=== PATIENT | male | born 1985 | race Caucasian/White ===

== ENCOUNTER 2017-12-01 03:43 | Observation (INO) | payer SELFPAY ==
[2017-12-01] MEDS ORDERED: ONDANSETRON 4 MG/2 ML VIAL ONE (03:57)
[2017-12-01 04:10] LABS: Absolute Lymphocytes (CBC) 1.3 K/uL (0.7-4.9); Absolute Monocytes 0.5 K/uL (0.1-1.3); Absolute Neutrophil 6.4 K/uL (1.8-8.0); Basophils % 0.4 % (0-1.3); Eosinophils % 1.1 % (0-4.4); Hematocrit 37.2 % (39.6-49.0); Lymphocytes % 15.5 % (15.3-44.8); MCH 29.7 pg (27.0-35.0); MCV 90.9 fL (80-100); MPV 8.4 fL (7.6-11.3); Monocytes % 5.6 % (3.3-12.3); RBC Red Blood Cell Count 4.09 M/uL (4.33-5.43)
[2017-12-01] MEDS ORDERED: PROMETHAZINE 25 MG/ML VIAL ONE (04:19)
[2017-12-01] MEDS ORDERED: NA CHLORIDE 0.9% 1,000 ML ONE ×2 (04:21→05:30)
[2017-12-01 04:30] LABS: ALT/SGPT 17 IU/L (10-60); AST/SGOT 13 IU/L (10-42); Albumin 2.5 g/dL (3.2-5.5); Alkaline Phosphatase 40 IU/L (42-121); Amylase Level 54 U/L (28-100); BUN Blood Urea Nitrogen 10 mg/dL (6-20); Bicarbonate 20 mEq/L (21-31); Bilirubin Direct 0.2 mg/dL (0-0.2); Bilirubin Total 0.8 mg/dL (0.3-1.2); Glucose Level 74 mg/dL (65-120); Lipase 17 U/L (22-51); Protein, Total 4.3 g/dL (6.0-8.3); Sodium Level 143 mEq/L (135-145)
[2017-12-01] MEDS ORDERED: PANTOPRAZOLE 40 MG INJ ONE (04:38)
[2017-12-01] MEDS ORDERED: Caclcium Chloride 10% INJ SYR IV ONE (04:38)
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
[2017-12-01] MEDS ORDERED: ACETAMINOPHEN 500 MG TAB PO PRN (06:14)
[2017-12-01] MEDS ORDERED: ONDANSETRON 4 MG/2 ML VIAL IV PRN (06:14)
[2017-12-01] MEDS ORDERED: POTASSIUM PHOS 45 MM in NA CHLORIDE 0.9% 500 ML IV ONE (06:15)
--- NOTE | 2017-12-01 07:43 | EKG ---
Test Date: 2017-12-01 Test Time: 05:49:12 [employer] Vehicle Mechanic: SAKINA MEASUREMENT RESULTS: Intervals: Rate: 68 FL: 128 QRSD: 88 QT: 370 QTc: 393 [place]: P: 44 FL: 128 QRS: 79 T: 70 INTERPRETIVE STATEMENTS: Sinus rhythm with marked sinus arrhythmia Otherwise normal ECG Compared to ECG 05/09/2017 03:02:13 No significant changes Electronically Signed On 12-01-17 07:43:04 CDT by Keith Ortega
--- NOTE | 2017-12-01 08:31 | RAD REPORT ---
EXAM DESCRIPTION: Elli Single View12/01/2017 4:35 am CLINICAL HISTORY: Chest pain COMPARISON: none FINDINGS: The lungs appear clear of acute infiltrate. The heart is normal size IMPRESSION: No acute abnormalities displayed
--- NOTE | 2017-12-01 08:39 | RAD REPORT ---
EXAM DESCRIPTION: CT - Abdomen Pelvis Wo Contrast - 12/01/2017 6:20 am CLINICAL HISTORY: Abdominal pain /epigastric pain with nausea and vomiting for 3 days COMPARISON: None TECHNIQUE: Computed axial tomography of the abdomen and pelvis was obtained. IV was not requested. O ral contrast was given A preliminary report was given by virtual radiologic and reviewed prior to thi s dictation All CT scans are performed using dose optimization technique as appropriate and may include automated exposure control or mA/KV adjustment according to patient size. FINDINGS: The evaluation of solid organs, vesselsis limited secondary to the lack of contrast admin istration. A 9 millimeter low-density area within the liver is nonspecific without IV contrast. It may represent a cyst. Spleen, pancreas, adrenals and kidneys appear grossly normal. The appendix is normal. There is no evidence of diverticulitis. A tiny umbilical hernia is present IMPRESSION: No acute abnormality is displayed.
[2017-12-01] MEDS: NA CHLORIDE 0.9% 1,000 ML IV SCH ×3 (10:45→21:26)
[2017-12-01 11:04] VITALS: BMI 27.7
[2017-12-01 11:40] LABS: Absolute Lymphocytes (CBC) 1.7 K/uL (0.7-4.9); Absolute Monocytes 0.8 K/uL (0.1-1.3); Absolute Neutrophil 7.4 K/uL (1.8-8.0); Basophils % 0.5 % (0-1.3); Eosinophils % 0.9 % (0-4.4); Hematocrit 43.5 % (39.6-49.0); Lymphocytes % 17.2 % (15.3-44.8); MCH 30.6 pg (27.0-35.0); MCV 90.5 fL (80-100); MPV 8.5 fL (7.6-11.3); Monocytes % 7.8 % (3.3-12.3); RBC Red Blood Cell Count 4.81 M/uL (4.33-5.43)
--- NOTE | 2017-12-01 11:46 | P.HP ---
Certification for Inpatient Patient admitted to: Observation With expected LOS: <2 Midnights Patient will require the following post-hospital care: None Practitioner: I am a practitioner with admitting privileges, knowledge of patient current condition, hospital course, and medical plan of care. Services: Services provided to patient in accordance with Admission requirements found in Title 42 Section 412.3 of the Code of Federal Regulations Patient History Date of Service: 12/01/17 Reason for admission: Intractable nausea and vomiting History of Present Illness: Patient is a 32-year-old gentleman who came into the hospital with intractable nausea and vomiting. Patient states he has been feeling this way since Wednesday. He has not gotten any better. Whenever he drinks or eats anything he has to vomit immediately. He finally came into the emergency room for evaluation. In the emergency room patient's workup included imaging studies and lab data. His CT scan of the abdomen and pelvis was negative. His labs showed a potassium of 2.0 . I have ordered additional lab testing including urine drug screen and magnesium level. I have also ordered aldosterone and cortisol lab testing. Patient states that his sister has a history of gastroparesis of unknown etiology. Patient's mother feels that it was related to a viral infection. At this time patient will be admitted to the hospital for observation and will monitor him closely over the next 24 hr. Allergies iodine Allergy (Unverified 12/01/17 08:03) Unknown Home Medications: NK [No Home Meds] 12/01/17 - Past Medical/Surgical History Has patient received pneumonia vaccine in the past: No Diabetic: No -: major depressive disorder -: Reconstructive chest surgery - Family History Father Family History: Reviewed- Non-Contributory - Social History Smoking Status: Current some day smoker Alcohol use: Yes CD- Drugs: Yes Caffeine use: Yes Place of Residence: Home Review of Systems 10-point ROS is otherwise unremarkable Physical Examination - Vital Signs Temperature: 99.0 F Blood Pressure: 131/82 Pulse: 115 Respirations: 16 Pulse Ox (%): 100 - Physical Exam General: Alert, In no apparent distress, Oriented x3 HEENT: Atraumatic, PERRLA, Mucous membr. moist/pink, EOMI, Sclerae nonicteric Neck: Supple, 2+ carotid pulse no bruit, No LAD, Without JVD or thyroid abnormality Respiratory: Clear to auscultation bilaterally, Normal air movement Cardiovascular: Regular rate/rhythm, Normal S1 S2, No murmurs Gastrointestinal: Normal bowel sounds, Soft and benign, Non-distended, No tenderness Musculoskeletal: No clubbing, No swelling, No tenderness Integumentary: No rashes Neurological: Normal gait, Normal speech, Normal strength at 5/5 x4 extr, Normal tone, Sensation intact, Cranial nerves 3-12 intact, Normal affect Lymphatics: No axilla or inguinal lymphadenopathy - Studies Laboratory Data (last 24 hrs) 12/01/17 04:00: Creatinine 0.61 12/01/17 04:00: WBC 8.3, Hgb 12.1 L, Hct 37.2 L, Plt Count 194 12/01/17 04:00: Sodium 143, Potassium 2.0 L*, BUN 10, Creatinine 0.61, Glucose 74, Total Bilirubin 0.8, AST 13, ALT 17, Alkaline Phosphatase 40 L, Amylase 54, Lipase 17 L Assessment & Plan - Problems (Diagnosis) (1) Intractable nausea and vomiting Current Visit: Yes Status: Acute (2) Abdominal pain Current Visit: Yes Status: Acute - Plan Plan: 1. IV hydration 2. intravenous antiemetics 3. pain control 4. Clear liquid diet 5. advance diet as tolerated 6. Outpatient GI workup unless symptoms worsen at that point patient will need inpatient workup. 7. check aldosterone and cortisol level as well as magnesium level 8. Urine drug screen 9. GI and DVT prophylaxis Discharge Plan: Home Plan to discharge in: 24 Hours - Advance Directives Does patient have a Living Will: No Does patient have a Durable POA for Healthcare: No - Code Status/Comfort Care Code Status Assessed: Yes Code Status: Full Code Critical Care: No Time Spent Managing PTS Care (In Minutes): 50
[2017-12-01 13:16] LABS: Albumin 3.7 g/dL (3.2-5.5); Bilirubin Total 1.3 mg/dL (0.3-1.2); Magnesium 1.7 mg/dL (1.8-2.5); Phosphorus 3.1 mg/dL (2.5-4.3); Potassium 4.2 mEq/L (3.6-5.0); Protein, Total 6.1 g/dL (6.0-8.3); Thyroid Stimulating Hormone 0.58 uIU/mL (0.34-5.60)
[2017-12-01] MEDS: ONDANSETRON 4 MG/2 ML VIAL IV PRN (17:54)
[2017-12-01] MEDS ORDERED: TEMAZEPAM 15 MG CAP PO PRN (21:24)
[2017-12-01 21:54] LABS: Barbiturates NEGATIVE; Benzodiazepines NEGATIVE; Cocaine NEGATIVE; Opiates NEGATIVE; Phencyclidine NEGATIVE; THC Cannibis POSITIVE
[2017-12-01 21:57] LABS: METHAMPHETAM POSITIVE
[2017-12-01 22:07] LABS: Urine Bacteria <20 /HPF (NONE SEEN); Urine Culture Reflex Order NOT NEEDED; Urine RBC <5 /HPF (NONE SEEN)
[2017-12-02 00:57] VITALS: O2SAT 97
[2017-12-02] MEDS: ONDANSETRON 4 MG/2 ML VIAL IV PRN (05:16)
[2017-12-02 09:32] VITALS: BP 103/62; TEMP 99.3
--- NOTE | 2017-12-02 14:06 | P.SSS ---
Patient History Date of Service: 12/02/17 Primary Care Provider: None Reason for admission: Intractable nausea and vomiting History of Present Illness: See HPI Allergies iodine Allergy (Verified 12/01/17 21:26) Unknown Home Medications: NK [No Home Meds] 12/01/17 - Past Medical/Surgical History Has patient received pneumonia vaccine in the past: No Diabetic: No -: major depressive disorder -: Reconstructive chest surgery - Social History Smoking Status: Current some day smoker Alcohol use: Yes CD- Drugs: Yes Caffeine use: Yes Place of Residence: Home Review of Systems General: As per HPI Physical Examination - Vital Signs Temperature: 99.3 F Blood Pressure: 103/62 Pulse: 69 Respirations: 20 Pulse Ox (%): 99 - Physical Exam General: Alert, In no apparent distress HEENT: Atraumatic, PERRLA, Mucous membr. moist/pink, EOMI, Sclerae nonicteric Neck: Supple, 2+ carotid pulse no bruit, No LAD, Without JVD or thyroid abnormality Respiratory: Clear to auscultation bilaterally, Normal air movement Cardiovascular: Regular rate/rhythm, Normal S1 S2 Gastrointestinal: Normal bowel sounds, No tenderness Musculoskeletal: No tenderness Integumentary: No rashes Neurological: Normal gait, Normal speech, Normal strength at 5/5 x4 extr, Normal tone, Normal affect Lymphatics: No axilla or inguinal lymphadenopathy - Diagnosis (Problem(s)) (1) Abdominal pain Status: Resolved Qualifiers: Abdominal location: unspecified location Qualified Code(s): R10.9 - Unspecified abdominal pain (2) Hypokalemia Onset Date: 12/01/17 Status: Resolved (3) Intractable nausea and vomiting Status: Resolved (4) Drug abuse and dependence Status: Chronic Treatment Summary: Patient was initially admitted to the hospital for nausea vomiting and abdominal pain most likely secondary to viral gastroenteritis. Patient was kept on IV fluid in the hospital. Patient's symptoms resolved. Pt also had a UDS done here in the hospital which was positive for amphetamines and THC patient was educated extensively not using any drugs at home and that it could possible cause the intractable nausea and vomiting. Patient demonstrated understanding and thus was discharged home under condition. - Disposition Disposition: ROUTINE DISCHARGE Condition: GOOD Patient Discharge Instructions: Please f/u with PCP in 1 to 2 weeks post discharge. Please refrain from using illicit drugs Diet: Regular Activity: Ad williams
== END 2017-12-02 10:51 | disposition home or self-care (01) ==
LOC: ER 03:43 → ERHOLD 05:45 → 2ND 07:50
PROVIDERS: ADMIT Hospitalist; ATTEND Hospitalist
DX: R11.2 Nausea with vomiting, unspecified (principal); R10.9 Unspecified abdominal pain; E87.6 Hypokalemia; F17.210 Nicotine dependence, cigarettes, uncomplicated; F15.10 Other stimulant abuse, uncomplicated; F12.10 Cannabis abuse, uncomplicated
CPT/HCPCS: 36415; 71045; 74176; 80048; 80053; 80076; 80307; 81015; 82150; 82533; 82607; 83690; 83735; 84100; 84439; 84443; 85025; 93005; 99285; C9113; G0378; J2405; J2550; J7030

== ENCOUNTER 2017-12-03 01:17 | Emergency (ER) | payer SELFPAY ==
[2017-12-03] MEDS ORDERED: ONDANSETRON 4 MG/2 ML VIAL ONE ×3 (01:42→03:20)
[2017-12-03] MEDS ORDERED: NA CHLORIDE 0.9% 1,000 ML ONE (01:42)
[2017-12-03 02:01] LABS: Absolute Lymphocytes (CBC) 2.3 K/uL (0.7-4.9); Absolute Monocytes 0.7 K/uL (0.1-1.3); Absolute Neutrophil 6.6 K/uL (1.8-8.0); Basophils % 0.5 % (0-1.3); Eosinophils % 1.1 % (0-4.4); Hematocrit 45.2 % (39.6-49.0); Lymphocytes % 23.6 % (15.3-44.8); MCH 30.7 pg (27.0-35.0); MCV 88.9 fL (80-100); MPV 8.7 fL (7.6-11.3); Monocytes % 7.3 % (3.3-12.3); RBC Red Blood Cell Count 5.08 M/uL (4.33-5.43)
[2017-12-03 02:17] LABS: Bicarbonate 28 mEq/L (21-31); Glucose Level 99 mg/dL (65-120); Lipase 33 U/L (22-51); Potassium 3.5 mEq/L (3.6-5.0); Sodium Level 138 mEq/L (135-145)
[2017-12-03 02:23] LABS: ALT/SGPT 22 IU/L (10-60); AST/SGOT 21 IU/L (10-42); Alkaline Phosphatase 61 IU/L (42-121); BUN Blood Urea Nitrogen 10 mg/dL (6-20); Bilirubin Direct 0.2 mg/dL (0-0.2); Bilirubin Total 1.3 mg/dL (0.3-1.2)
[2017-12-03 02:24] LABS: Albumin 4.2 g/dL (3.2-5.5); Protein, Total 7.6 g/dL (6.0-8.3)
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
--- NOTE | 2017-12-03 02:34 | EDPHYS ---
Physician Documentation [facility] Name: Mac Kern Age: 32 yrs Sex: Male : 1985 Arrival Date: 12/03/2017 Time: 01:21 Bed 5 Private MD: ED Physician Jaylan John HPI: 12/03 01:34 This 32 yrs old Male presents to ER via Ambulatory with complaints of rn Vomiting. 01:34 The patient presents to the emergency department with nausea, vomiting. Onset: The rn symptoms/episode began/occurred 2 day(s) ago. Possible causes: unknown. The symptoms are aggravated by nothing. The symptoms are alleviated by nothing. Severity of symptoms: At their worst the symptoms were moderate in the emergency department the symptoms are unchanged. The patient has experienced a previous episode. The patient has been recently been admitted at [facility]. Reports admitted for intractable vomiting a couple of days ago, sent home without nausea medication, told viral illness, uses ecstasy and smokes marijuana, reports still vomiting, no blood, + intermittent abd cramping. . Historical: - Allergies: 01:34 Iodine; tl1 - Home Meds: :34 None [Active]; tl1 - PMHx: 01:34 Depression; RETINAL DETACHMENT; tl1 - PSHx: 01:34 None; tl1 - Immunization history:: Adult Immunizations unknown. - Social history:: Smoking status: Patient uses tobacco products, smokes one-half pack cigarettes per day, Patient uses alcohol, occasionally. street drugs, marijuana, methylenedioxymethamphetamine. - Family history:: not pertinent. - Hospitalizations: : No recent hospitalization is reported. ROS: 01:34 Constitutional: Negative for fever, chills, and weight loss, Eyes: Negative for injury, rn pain, redness, and discharge, Neck: Negative for injury, pain, and swelling, Cardiovascular: Negative for chest pain, palpitations, and edema, Respiratory: Negative for shortness of breath, cough, wheezing, and pleuritic chest pain, Abdomen/GI: Negative for diarrhea, and constipation, MS/Extremity: Negative for injury and deformity, Skin: Negative for injury, rash, and discoloration, Neuro: Negative for headache, weakness, numbness, tingling, and seizure. Exam: 01:34 Constitutional: This is a well developed, well nourished patient who is awake, alert, rn and in no acute distress. Head/Face: Normocephalic, atraumatic. Eyes: Pupils equal round and reactive to light, extra-ocular motions intact. Lids and lashes normal. Conjunctiva and sclera are non-icteric and not injected. Cornea within normal limits. Periorbital areas with no swelling, redness, or edema. ENT: dry MM Neck: Trachea midline, no thyromegaly or masses palpated, and no cervical lymphadenopathy. Supple, full range of motion without nuchal rigidity, or vertebral point tenderness. No Meningismus. Abdomen/GI: Soft, non-tender, with normal bowel sounds. No distension or tympany. No guarding or rebound. No evidence of tenderness throughout. Skin: Warm, dry, no rashes, no lesions, and no evidence of cellulitis. MS/ Extremity: Pulses equal, no cyanosis. Neurovascular intact. Full, normal range of motion. Equal circumference. Neuro: Awake and alert, GCS 15, oriented to person, place, time, and situation. Cranial nerves II-XII grossly intact. Motor strength 5/5 in all extremities. Sensory grossly intact. Cerebellar exam normal. Normal gait. Vital Signs: 01:36 BP 139 / 89; Pulse 71; Resp 16; Temp 98; Pulse Ox 100% on R/A; Weight 88.45 kg; Height tl1 5 ft. 11 in. (180.34 cm); Pain 5/10; 02:26 BP 111 / 56; Pulse 67; Resp 17; Pulse Ox 97% ; Pain 3/10; tl1 03:29 BP 118 / 67; Pulse 69; Resp 16; Temp 98.1; Pulse Ox 100% on R/A; Pain 0/10; tl1 01:36 Body Mass Index 27.20 (88.45 kg, 180.34 cm) tl1 MDM: 01:27 Patient medically screened. rn 02:32 Differential diagnosis: viral gastroenteritis, gastroenteritis. Differential diagnosis: rn gastritis. Data reviewed: vital signs, nurses notes, old medical records, lab test result(s), and as a result, I will discharge patient. Counseling: I had a detailed discussion with the patient and/or guardian regarding: the historical points, exam findings, and any diagnostic results supporting the discharge/admit diagnosis, lab results, radiology results, the need for outpatient follow up, to return to the emergency department if symptoms worsen or persist or if there are any questions or concerns that arise at home. Special discussion: Based on the patient's Hx, exam, and Dx evaluation, there is no indication for emergent surgery or inpatient Tx. It is understood by the patient/guardian that if the Sx's persist or worsen they need to return immediately for re-evaluation. I discussed with the patient/guardian in detail that at this point there is no indication for admission to the hospital. It is understood, however, that if the symptoms persist or worsen the patient needs to return immediately for re-evaluation. ED course: No vomiting in ER, will dc home with rectal phenergan as patient states oral zofran makes him gag and throw up.. 12/03 01:33 Order name: Basic Metabolic Panel rn 12/03 01:33 Order name: CBC with Diff rn 12/03 01:33 Order name: Hepatic Function rn 12/03 01:33 Order name: Lipase rn 12/03 01:33 Order name: Basic Metabolic Panel; Complete Time: 02:31 EDMS 12/03 01:33 Order name: CBC with Automated Diff; Complete Time: 02:10 EDMS 12/03 01:33 Order name: IV Saline Lock; Complete Time: 01:38 rn 12/03 01:33 Order name: Labs collected and sent; Complete Time: 01:38 rn 12/03 01:33 Order name: Liver (Hepatic) Function; Complete Time: 02:31 EDMS 12/03 01:33 Order name: Lipase; Complete Time: 02:31 EDMS Administered Medications: 01:53 Drug: NS 0.9% 1000 ml Route: IV; Rate: 1000 ml; Site: left antecubital; tl1 02:38 Follow up: IV Status: Completed infusion tl1 01:53 Drug: Zofran 4 mg Route: IVP; Infused Over: 2 mins; Site: left antecubital; tl1 02:37 Follow up: Response: No adverse reaction; Nausea is decreased tl1 03:25 Drug: Zofran 4 mg Route: IVP; Infused Over: 2 mins; Site: left antecubital; tl1 03:25 Follow up: Response: No adverse reaction; Medication administered at discharge. tl1 03:25 Drug: Phenergan Suppository 25 mg Route: MI; tl1 03:26 Follow up: Response: No adverse reaction; Medication administered at discharge. tl1 Disposition: 12/03/17 02:33 Discharged to Home. Impression: Vomiting. - Condition is Stable. - Discharge Instructions: Nausea and Vomiting. - Prescriptions for Phenergan 25 mg Rectal Suppository - insert 1 suppository by RECTAL route every 6 hours As needed; 12 suppository. - Medication Reconciliation Form, Thank You Letter, Antibiotic Education, Prescription Opioid Use form. - Follow up: Private Physician; When: As needed; Reason: Recheck today's complaints, Re-evaluation by your physician. - Problem is new. - Symptoms have improved. Signatures: Dispatcher [employer] EDMS Jaylan John MD MD rn Lasagna, Tonya, RN RN tl1 Corrections: (The following items were deleted from the chart) 01:40 01:36 PMHx: HIV; tl1 tl1 03:30 02:33 12/03/2017 02:33 Discharged to Home. Impression: Vomiting. Condition is Stable. tl1 Prescriptions for Phenergan 25 mg Rectal Suppository - insert 1 suppository by RECTAL route every 6 hours As needed; 12 suppository. and Forms are Medication Reconciliation Form, Thank You Letter, Antibiotic Education, Prescription Opioid Use. Follow up: Private Physician; When: As needed; Reason: Recheck today's complaints, Re-evaluation by your physician. Problem is new. Symptoms have improved. noemi
[2017-12-03] MEDS ORDERED: PROMETHAZINE 25 MG/SUPP PR ONE (03:20)
[2017-12-03 03:40] VITALS: BP 118/67; TEMP 98.1; O2SAT 100
== END 2017-12-03 03:30 | disposition home or self-care (01) ==
LOC: ER 01:17
DX: R11.10 Vomiting, unspecified (principal); F17.210 Nicotine dependence, cigarettes, uncomplicated; Z91.048 Other nonmedicinal substance allergy status
CPT/HCPCS: 36415; 80048; 80076; 83690; 85025; 96361; 96374; 99284; J2405; J7030

== ENCOUNTER 2017-12-04 06:00 | Observation (INO) | payer SELFPAY ==
[2017-12-04] MEDS ORDERED: NA CHLORIDE 0.9% 1,000 ML ONE ×2 (06:31→08:15)
[2017-12-04 06:36] LABS: Absolute Lymphocytes (CBC) 1.7 K/uL (0.7-4.9); Absolute Monocytes 0.7 K/uL (0.1-1.3); Absolute Neutrophil 8.6 K/uL (1.8-8.0); Basophils % 0.8 % (0-1.3); Eosinophils % 1.1 % (0-4.4); Lymphocytes % 15.4 % (15.3-44.8); MCH 29.9 pg (27.0-35.0); MPV 8.5 fL (7.6-11.3); Monocytes % 5.9 % (3.3-12.3); RBC Red Blood Cell Count 5.05 M/uL (4.33-5.43)
[2017-12-04 06:55] LABS: Potassium 3.5 mEq/L (3.6-5.0)
[2017-12-04 07:01] LABS: Albumin 4.2 g/dL (3.2-5.5); Bilirubin Direct 0.3 mg/dL (0-0.2); Bilirubin Total 1.9 mg/dL (0.3-1.2)
[2017-12-04] MEDS ORDERED: POTASSIUM CL SA 10 MEQ TAB PO ONE (07:14)
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
[2017-12-04 07:29] LABS: Urine Blood NEGATIVE (NEG); Urine Glucose NEGATIVE (NEG); Urine Protein 2+ (NEG); Urine Specific Gravity 1.025 (1.005-1.030); Urine pH 6.5 (5.0-7.0)
[2017-12-04] MEDS ORDERED: NS KCL 20MEQ 1,000 ML IV ONE (08:14)
[2017-12-04] MEDS ORDERED: PANTOPRAZOLE 40 MG INJ ONE (08:14)
[2017-12-04 11:49] VITALS: BMI 27.9
[2017-12-04] MEDS ORDERED: ACETAMINOPHEN 500 MG TAB PO PRN (12:14)
[2017-12-04] MEDS: NA CHLORIDE 0.9% 1,000 ML IV SCH ×2 (12:32→20:26)
[2017-12-04] MEDS: ONDANSETRON 4 MG/2 ML VIAL IV PRN (14:18)
[2017-12-04 14:53] LABS: Barbiturates NEGATIVE; Benzodiazepines POSITIVE; Cocaine NEGATIVE; METHAMPHETAM NEGATIVE; Opiates NEGATIVE; Phencyclidine NEGATIVE; THC Cannibis POSITIVE
[2017-12-04 15:13] LABS: Urine Appearance CLEAR; Urine Blood NEGATIVE (NEG); Urine Color YELLOW; Urine Glucose NEGATIVE (NEG); Urine Protein NEGATIVE (NEG); Urine Specific Gravity 1.025 (1.005-1.030)
[2017-12-04 15:47] LABS: Urine Bilirubin NEGATIVE (NEG); Urine Microscopic Reflex NO UMIC
[2017-12-04] MEDS: METOCLOPRAMIDE 10 MG/2mL INJ IV SCH ×2 (16:13→20:27)
[2017-12-04] MEDS ORDERED: KCL 20 MEQ/100 mL IVPB 20 MEQ/100 ML BAG IV SCH (21:00)
--- NOTE | 2017-12-04 23:37 | HP ---
Date of Admission: 12/04/2017 Reason For Admission: Refractory nausea and vomiting. History Of Present Illness: The patient is a 32-year-old gentleman without significant past medical history except for major depression, who was admitted on December 01 with intractable nausea, vomiting that started Wednesday before. The patient was vomiting anything any time he eats. CAT scan of the abdomen and pelvis was negative. The patient potassium was 2. He had a positive urine tox screen. His pot assium was replaced and the patient was discharged on the and they thought probably he have mild gastroenteritis. No GI consult requested. The patient is back today again with progressive nausea and vomiting that happens mostly after eating food. He is unable to keep anything down. He lost 15 pounds over the last 10 days. No fever. No chills. No diarrhea. He have no stomach pain, but quea siness. His mother at the bedside. review of system is otherwise negative. No chest pain. No shor tness of breath. The patient is not using any drug currently. Past Medical History: Significant for depression and retinal detachment. Past Surgical History: Significant reconstruction of his chest. Allergies: NONE. Social History: He is single. Has no kids. He does smoke socially when he drinks and he drinks als o socially. He smokes pot on a regular basis. Blood test positive for meth on last admission. Family History: Both father and mother alive and healthy. Review of Systems: Denies any fever, chills, night sweats, dizziness, lightheaded headache. There was no cough, sputum, or shortness of breath. No chest pain, palpitations, PND, orthopnea, dyspnea on exertion. No lower extremity edema. He does have the nausea and vomiting, but no abdominal pain. No diarrhea or const ipation. No black stool or blood in the stool. No hemoptysis. No dysuria, frequency, urgency, or h ematuria. He has a history of depression, but no anxiety. No seizure or stroke. Physical Examination: Vital Signs: Currently, blood pressure is 129/80, respiratory rate 17, pulse 77, and temperature 98. 3. General: Fully alert, oriented x3. Does not look in any distress. HEENT: Atraumatic, normocephalic. PERRLA. Oral mucosa is moist. Neck: Supple. No JVD. No carotid bruits. Chest: Clear to auscultation. Good air entry. Heart: Regular rate and rhythm. S1, S2 normal. No gallop or murmur. Abdomen: Soft, nontender. No masses. No hepatosplenomegaly. Positive bowel sounds. Extremities: No clubbing, cyanosis, or edema. No calf tenderness. Neurologic: Grossly intact. Laboratory Data: Labs done in the emergency room show CBC was normal except for a white blood cell o f 11.2. Urine was normal. Urine tox screen not done yet. Chemistry within normal except for potass ium of 3.5, bilirubin 1.9 and direct bilirubin 0.3. Assessment And Plan: This is an 32-year-old gentleman with intractable history of nausea and vomitin g for the last 10 days, status post admission on December 01 for 2 days with negative CAT scan. Impression: 1.Intractable nausea, vomiting, etiology unknown. Will admit the patient. Keep him on clear liquid s. Consult GI. Proceed probably with EGD. I will put the patient on Zofran as needed and Reglan sc heduled dose to see if that would help. The patient does not have diabetes, so I do not think he has gastropathy, but again we will need GI input. 2.Hypokalemia, borderline. We will replace. 3.Elevated bilirubin, mild. We will observe for now. We will continue to trend up. I will proceed with ultrasound tomorrow. 4.We will check urine tox screen. BRUCE Voice ID: [id number]
[2017-12-05] MEDS: ONDANSETRON 4 MG/2 ML VIAL IV PRN ×3 (01:04→23:25)
[2017-12-05] MEDS: NA CHLORIDE 0.9% 1,000 ML IV SCH ×4 (01:22→22:16)
[2017-12-05 05:20] LABS: Absolute Monocytes 0.7 K/uL (0.1-1.3); Absolute Neutrophil 6.9 K/uL (1.8-8.0); Basophils % 0.6 % (0-1.3); Eosinophils % 2.2 % (0-4.4); Hematocrit 41.4 % (39.6-49.0); Lymphocytes % 27.4 % (15.3-44.8); MCH 30.2 pg (27.0-35.0); MCV 89.5 fL (80-100); MPV 8.8 fL (7.6-11.3); Monocytes % 6.8 % (3.3-12.3); RBC Red Blood Cell Count 4.62 M/uL (4.33-5.43)
[2017-12-05 05:53] LABS: ALT/SGPT 18 IU/L (10-60); AST/SGOT 15 IU/L (10-42); Albumin 3.5 g/dL (3.2-5.5); Alkaline Phosphatase 52 IU/L (42-121); BUN Blood Urea Nitrogen 10 mg/dL (6-20); Bicarbonate 26 mEq/L (21-31); Bilirubin Total 1.7 mg/dL (0.3-1.2); Glucose Level 88 mg/dL (65-120); Potassium 3.8 mEq/L (3.6-5.0); Protein, Total 6.1 g/dL (6.0-8.3); Sodium Level 136 mEq/L (135-145)
[2017-12-05] MEDS ORDERED: KCL 20 MEQ/100 mL IVPB 20 MEQ/100 ML BAG IV SCH (07:00)
[2017-12-05] MEDS: METOCLOPRAMIDE 10 MG/2mL INJ IV SCH ×4 (07:23→19:55)
--- NOTE | 2017-12-05 14:31 | PN ---
Subjective: Currently, the patient is lying in bed. He looks comfortable. No abdominal pain. He h ad no nausea or vomiting this morning, otherwise he is on clear liquid. He is hungry, he would like me to advance diet a little bit. He denied again using drugs recently, and he stated that the urine tox screen was positive for drug use 2 weeks ago. Objective: Vital Signs: Currently vital signs, blood pressure is 134/77, respiratory rate 16, pulse is 70, temperature 99.5. General: He is fully alert and oriented x3. Does not look in any distress. HEENT: Atraumatic and normocephalic. PERRLA. Oral mucosa is moist. Neck: Supple. No JVD. No carotid bruits. Chest: Clear to auscultation. Good air entry. Heart: Regular rate and rhythm. S1 and S2 normal. No gallop or murmur. Abdomen: Soft, nontender. No masses. No hepatosplenomegaly. Positive bowel sounds. Extremities: No clubbing, no cyanosis, or edema. No calf tenderness. Neurologic: Grossly intact. Laboratory Data: Labs this morning; CBC within normal. Chemistry within normal except for bilirubin slightly off at 1.7 down from 1.9. Urine tox screen was positive for benzo and meth. Assessment And Plan: 1.Intractable nausea and vomiting, again etiology unknown. We are waiting for gastrointestinal eval uation and possibly esophagogastroduodenoscopy tomorrow morning. There is no gastrointestinal on-carolyn l this weekend. I will advance patient's diet to full liquid in the meantime. The patient on p.r.n. Zofran and schedule Reglan and he is doing much better. 2.Hypokalemia replaced. 3.Elevated bilirubin trending down. No further workup needed at this point. 4.Positive urine tox screen. Advised the patient to quit drugs. I am not sure if that is in part c ausing his issues with nausea and vomiting. 5.Discharge plan in a.m. after gastrointestinal evaluation and possibly esophagogastroduodenoscopy. CHAU/IVAN Voice ID: [id number] Report ID: [id number]
[2017-12-05 21:21] VITALS: O2SAT 99
[2017-12-05] MEDS ORDERED: TEMAZEPAM 15 MG CAP PO ONE (23:35)
[2017-12-06 05:24] LABS: Potassium 4.3 mEq/L (3.6-5.0)
[2017-12-06] MEDS: NA CHLORIDE 0.9% 1,000 ML IV SCH ×2 (05:37→11:12)
[2017-12-06] MEDS: METOCLOPRAMIDE 10 MG/2mL INJ IV SCH ×2 (07:30→11:12)
[2017-12-06] MEDS: ONDANSETRON 4 MG/2 ML VIAL IV PRN (11:07)
--- NOTE | 2017-12-06 11:17 | P.DS ---
Admission Date: 12/04/17 Discharge Date: 12/06/17 Primary Care Provider: none Disposition: AMA-LEFT AGAINST MEDICAL ADVIC Discharge Condition: GOOD Reason for Admission: Hyperemesis Consultations: GI-Dr. Carey - Problems (1) Cannabinoid hyperemesis syndrome Current Visit: Yes Status: Suspected (2) GERD (gastroesophageal reflux disease) Current Visit: Yes Status: Suspected Qualifiers: Esophagitis presence: esophagitis presence not specified Qualified Code(s) : K21.9 - Gastro-esophageal reflux disease without esophagitis (3) Elevated bilirubin Onset Date: 12/06/17 Current Visit: Yes Status: Acute (4) Intractable nausea and vomiting Onset Date: 12/06/17 Current Visit: Yes Status: Acute Qualifiers: Vomiting type: unspecified Qualified Code(s): R11.2 - Nausea with vomiting , unspecified (5) Epigastric pain Onset Date: 12/01/17 Current Visit: No Status: Acute (6) Drug abuse and dependence Current Visit: No Status: Chronic (7) Hypokalemia Onset Date: 12/01/17 Current Visit: No Status: Resolved Brief History of Present Illness: 32-year-old male presented to ER with nausea, vomiting and mild epigastric pain. The patient had recently been seen and admitted for similar issues. Patient was positive for amphetamines and THC use at that time. Patient has been taking oral intake. Prior to admission symptoms were worse. He came to the ER for further evaluation. Patient had hypokalemia with slight elevation in his bilirubin. Patient required hospitalization. Patient found to be positive for THC and benzodiazepines. Hospital Course: During his stay nausea, vomiting and abdominal pain resolved. Patient was to have been evaluated by GI prior to discharge but patient pulled out his IV and left AMA. He gave no reason. Recommendation for the patient to follow up with GI as an outpatient for possible EGD for evaluation. Hyperemesis likely related to THC use. Patient admits to chronic use of THC. Patient likely has underlying GERD. At discharge patient will continue with an [place] [employer] associated diet. The patient has been started on Protonix 40 mg 1 pill once daily. Patient will be provided Zofran 4 mg 1 pill 3 times a day as needed for nausea. Recommendation is to eliminate THC use. Education provided. Patient admits to history of drug abuse including amphetamines and THC. Cessation education will be provided. Patient with history of depression. Recommendation is for the patient to follow up with his PCP to further evaluate and consider medication. Vital Signs/Physical Exam: Temp Pulse Resp BP Pulse Ox 98.5 F 58 18 128/74 99 12/06/17 08:00 12/06/17 08:00 12/06/17 08:00 12/06/17 08:00 12/06/17 08:00 General: Alert, In no apparent distress, Oriented x3, Cooperative HEENT: Atraumatic, Mucous membr. moist/pink Neck: Supple, No Thyromegaly Respiratory: Clear to auscultation bilaterally, Normal air movement Cardiovascular: Normal pulses, Regular rate/rhythm Gastrointestinal: Normal bowel sounds, Soft and benign, Non-distended, No tenderness, No masses, No rebound, No guarding Musculoskeletal: No erythema, No tenderness, No warmth Integumentary: No tenderness/swelling, No erythema, No warmth, No cyanosis Neurological: Normal speech, Normal strength at 5/5 x4 extr, Normal tone, Normal affect Lymphatics: No axilla or inguinal lymphadenopathy Laboratory Data at Discharge: WBC 11.0 K/uL (4.3-10.9) H 12/05/17 04:31 Hgb 13.9 g/dL (13.6-17.9) 12/05/17 04:31 Hct 41.4 % (39.6-49.0) 12/05/17 04:31 Plt Count 223 K/uL (152-406) 12/05/17 04:31 Sodium 139 mEq/L (135-145) 12/06/17 04:28 Potassium 4.3 mEq/L (3.6-5.0) 12/06/17 04:28 BUN 7 mg/dL (6-20) 12/06/17 04:28 Creatinine 1.07 mg/dL (0.61-1.24) 12/06/17 04:28 Glucose 92 mg/dL (65-120) 12/06/17 04:28 Phosphorus 3.5 mg/dL (2.5-4.3) 12/04/17 06:27 Total Bilirubin 1.7 mg/dL (0.3-1.2) H 12/05/17 04:31 AST 15 IU/L (10-42) 12/05/17 04:31 ALT 18 IU/L (10-60) 12/05/17 04:31 Alkaline Phosphatase 52 IU/L (42-121) 12/05/17 04:31 Amylase 80 U/L (28-100) 12/04/17 06:27 Lipase 22 U/L (22-51) 12/04/17 06:27 Home Medications: Ondansetron HCl [Zofran] 4 mg PO TID PRN #15 tablet 12/06/17 Pantoprazole [Protonix Tab] 40 mg PO DAILY #30 tab 12/06/17 New Medications: Ondansetron HCl [Zofran] 4 mg PO TID PRN #15 tablet PRN Reason: Nausea / Vomiting Pantoprazole [Protonix Tab] 40 mg PO DAILY #30 tab Patient Discharge Instructions: 1. Patient will need a follow up with his PCP in 1 week to follow up this hospitalization. 2. Patient presented with nausea , vomiting and abdominal pain. Hyper emesis likely related to chronic THC use. Patient evaluated by GI. At discharge she is without any significant nausea or vomiting. Recommendation is to eliminate THC use. Patient also tested positive for benzodiazepines. On a prior to admission patient was positive for methamphetamines. Recommendation is to eliminate illegal drug use. Patient will be provided Zofran 4 mg 1 pill 3 times a day as needed for nausea. 3. Patient likely has GERD. Patient will be started on Protonix 40 mg 1 pill once daily. 4. Patient with history of depression. Recommendation is for the patient follow up with his PCP to further monitor and address. Diet: AHA Activity: Ad williams Time spent managing pt's care (in minutes): 55
[2017-12-06 14:49] VITALS: BP 147/83; TEMP 98
== END 2017-12-06 14:20 | disposition left against medical advice (07) ==
LOC: ER 06:00 → ERHOLD 08:18 → 2ND 10:52
PROVIDERS: ADMIT Internal Medicine; ATTEND Family Medicine
DX: R11.2 Nausea with vomiting, unspecified (principal); E87.6 Hypokalemia; F12.188 Cannabis abuse with other cannabis-induced disorder; F15.10 Other stimulant abuse, uncomplicated; K21.9 Gastro-esophageal reflux disease without esophagitis; R10.13 Epigastric pain; F32.9 Major depressive disorder, single episode, unspecified
CPT/HCPCS: 36415; 80048; 80053; 80076; 80307; 81003; 82150; 83690; 84100; 85025; 96361; 96374; 99285; C9113; G0378; J2405; J2765; J7030

== ENCOUNTER 2019-01-05 07:23 | Emergency (ER) | payer SELFPAY ==
--- OUTSIDE RECORDS SUMMARY | 2019-01-05 07:25 | XMS REPORT | Clinical Summary ---
:1985 Author Organization [facility] Address [address] [place] [address] Care Team Providers Name Role Phone Asked, No Pcp Primary Care Provider Unavailable Allergies No Known Allergies Medications Medication Sig Dispensed Refills Start Date End Date Status nicotine (NICODERM Place 1 patch on 30 patch 0 04/15/2018 05/15/2018 CQ) 14 mg/24 the skin daily hrIndications: as needed Smoking Cessation (cravings) for up to 30 days. Active Problems Problem Noted Date Substance use disorder 04/12/2018 Encounters Date Type Specialty Care Team Description 04/12/2018 - Hospital Encounter Psychiatry Wendy De Souza MD 04/15/2018 Kieran Camarillo MD 04/12/2018 Intake Access N/A after 01/04/2018 Family History Medical History Relation Name Comments No Known Problems Brother No Known Problems Cousin No Known Problems Father No Known Problems Maternal Aunt No Known Problems Maternal Grandfather No Known Problems Maternal Grandmother No Known Problems Maternal Uncle No Known Problems Mother No Known Problems Paternal Aunt No Known Problems Paternal Grandfather No Known Problems Paternal Grandmother No Known Problems Paternal Uncle No Known Problems Sister Relation Name Status Comments Brother Cousin Father Maternal Aunt Maternal Grandfather Maternal Grandmother Maternal Uncle Mother Paternal Aunt Paternal Grandfather Paternal Grandmother Paternal Uncle Sister Social History Tobacco Use Types Packs/Day Years Used Date Current Every Day Smoker Cigarettes 1.5 15 Tobacco Cessation: Ready to Quit: No; Counseling Given: Yes Sex Assigned at Date Recorded Not on file Job Start Date Occupation Industry Not on file Not on file Not on file Travel History Travel Start Travel End No recent travel history available. Last Filed Vital Signs Vital Sign Reading Time Taken Blood Pressure 128/67 04/15/2018 5:53 AM CDT Pulse 86 04/15/2018 5:53 AM CDT Temperature 36.2 C (97.2 F) 04/15/2018 5:53 AM CDT Respiratory Rate 18 04/15/2018 5:53 AM CDT Oxygen Saturation 95% 04/15/2018 5:53 AM CDT Inhaled Oxygen Concentration - - Weight 93 kg (205 lb 1.6 oz) 04/13/2018 6:12 AM CDT Height 177.8 cm (5' 10") 04/12/2018 7:42 PM CDT Body Mass Index 29.43 04/12/2018 7:42 PM CDT Plan of Treatment Not on file Procedures Procedure Name Priority Date/Time Associated Comments Diagnosis HEPATITIS ACUTE PANEL Routine 04/14/2018 6:00 Results for this AM CDT procedure are in the results section. HEMOGLOBIN A1C Routine 04/13/2018 5:40 Results for this AM CDT procedure are in the results section. SYPHILIS TREPONEMAL Routine 04/13/2018 4:00 Results for this IGG AM CDT procedure are in the results section. HIV AG/AB COMBINATION Routine 04/13/2018 4:00 Results for this AM CDT procedure are in the results section. LIPID PANEL Routine 04/13/2018 4:00 Results for this AM CDT procedure are in the results section. after 01/04/2018 Results Hepatitis acute panel (04/14/2018 6:00 AM CDT) Hepatitis A IgM Non-reactive Non-reactive [facility] DEPARTMENT OF PATHOLOGY AND GENOMIC MEDICINE Hepatitis B core Non-reactive Non-reactive [facility] DEPARTMENT OF IgM PATHOLOGY AND GENOMIC MEDICINE Hepatitis B surface Non-reactive Non-reactive [facility] DEPARTMENT OF Ag PATHOLOGY AND GENOMIC MEDICINE Hepatitis C Ab Non-reactive Non-reactive [facility] DEPARTMENT OF PATHOLOGY AND GENOMIC MEDICINE Specimen Serum Performing Organization Address City/State/Zipcode Phone Number [facility] DEPARTMENT OF PATHOLOGY AND [address] [place] [address] [facility] Hemoglobin A1c (04/13/2018 5:40 AM CDT) Hemoglobin A1C 5.2 4.0 - 5.6 % [facility] DEPARTMENT OF Comment: PATHOLOGY AND HbA1c cutoffs for diagnosing diabetes: GENOMIC MEDICINE 4.0% - 5.6%=normal 5.7% - 6.4%=increased risk for diabetes (prediabetes) >=6.5%=diabetes Goals for glycemic control (ADA 2016) < 7.0%Target for non adults with diabetes. More or less stringent targets may be appropriate for individual patients. <7.5% Target for Children and adolescents with type 1 diabetes. Specimen Blood Performing Organization Address City/State/Zipcode Phone Number [facility] DEPARTMENT OF PATHOLOGY AND [address] [place] [address] Syphilis treponemal IgG (04/13/2018 4:00 AM CDT) Syphilis Non-reactiveComment Non-reactive [facility] DEPARTMENT OF treponemal IgG : Non-reactive: No PATHOLOGY AND serological [facility] evidence of Syphilis infection Specimen Serum Performing Organization Address City/[facility] Phone Number [facility] DEPARTMENT OF PATHOLOGY AND [address] [place] [address] HIV Ag/Ab combination (04/13/2018 4:00 AM CDT) HIV Ag/Ab Non-reactive Non-reactive [facility] DEPARTMENT OF combination PATHOLOGY AND GENOMIC MEDICINE Specimen Blood Performing Organization Address City/[facility] Phone Number [facility] DEPARTMENT OF PATHOLOGY AND [address] [place] [address] Lipid panel (04/13/2018 4:00 AM CDT) Cholesterol 125 <200 mg/dL [facility] DEPARTMENT OF PATHOLOGY AND GENOMIC MEDICINE Triglycerides 88 <150 mg/dL [facility] DEPARTMENT OF PATHOLOGY AND GENOMIC MEDICINE HDL cholesterol 34 (L) >40 mg/dL [facility] DEPARTMENT OF PATHOLOGY AND GENOMIC MEDICINE LDL cholesterol 81Comment: Result <100 mg/dL [facility] DEPARTMENT obtained by direct OF PATHOLOGY AND LDL measurement [facility] Lipid panel SeeBelow [facility] DEPARTMENT interpretation Comment: OF PATHOLOGY AND Total Cholesterol (mg/dL) GENOMIC MEDICINE <200 Desirable [id number]-qtps >=240High Triglycerides (mg/dL) <150 Normal [id number]-uqst 200-499High >=500Very high HDL Cholesterol (mg/dL) <40Low (male) <40Low (female) LDL Cholesterol (mg/dL) <100 Optimal 100-129Near or above optimal [phone]-[id number] 160-189High >=190Very high Risk Catergories that modify LDL goals. Risk CatergoriesLDL goal (mg/dL) CHD and CHD risk equivalent<100 (10-year risk >20%) Multiple (2+) risk factors <130 (10-year risk=<20%) 0-1 risk factors <160 (<10-year risk) Defining levels of lipids in metabolic syndrome Triglycerides>=150 mg/dL HDL Cholesterol Men<40 mg/dL Women<40 mg/dL Non-HDL cholesterol is a second target for therapy in persons with high triglycerides (>=200 mg/dL) Specimen Plasma specimen Performing Organization Address City/State/Zipcode Phone Number [facility] DEPARTMENT OF PATHOLOGY AND [address] [place] [address] [employer] MEDICINE after 01/04/2018 Advance Directives Patient has advance care planning documents, and code status on file. For more information, please contact:Quinn Champion[address] [place] [address] Code Status Date Activated Date Inactivated Comments Full Code 04/12/2018 9:09 PM 04/15/2018 10:06 PM Code Status decision reached by: Patient
--- OUTSIDE RECORDS SUMMARY | 2019-01-05 07:26 | XMS REPORT ---
:1985 Author Organization [facility] Address [address] [place] [address] Dr. Quezada [address] [place] [address] Care Team Providers Name Role Phone Unavailable Unavailable Unavailable Payers Payer Name Policy Type Policy Number Effective Date Expiration Date Problems This patient has no known problems. Allergies, Adverse Reactions, Alerts Allergy Allergy Status Severity Reaction(s) Onset Inactive Treating Comments Name Type Date Date Clinician No Known DA Active U 2018-04 Allergies -03 00:00:0 0 Medications This patient has no known medications.
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
[2019-01-05 08:47] VITALS: BP 125/86; O2SAT 98
== END 2019-01-05 08:36 | disposition home or self-care (01) ==
LOC: ER 07:23
DX: T43.625A Adverse effect of amphetamines, initial encounter (principal); F55.8 Abuse of other non-psychoactive substances; F43.21 Adjustment disorder with depressed mood
CPT/HCPCS: 99283

== ENCOUNTER 2019-06-12 12:39 | Emergency (ER) | payer SELFPAY ==
--- OUTSIDE RECORDS SUMMARY | 2019-06-12 12:41 | XMS REPORT ---
:1985 [facility] Address [address] [place] [address] Dr. Quezada [address] [place] [id number] Care Team Providers Name Role Phone Unavailable [...]
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
[2019-06-12] MEDS ORDERED: predniSONE 20 MG TAB ONE (13:26)
[2019-06-12 20:02] VITALS: TEMP 97.8
[2019-06-12 20:03] VITALS: BP 140/80; O2SAT 95
== END 2019-06-12 13:37 | disposition home or self-care (01) ==
LOC: ER 12:39
DX: J06.9 Acute upper respiratory infection, unspecified (principal); F17.210 Nicotine dependence, cigarettes, uncomplicated; Z91.048 Other nonmedicinal substance allergy status
CPT/HCPCS: 99283; J7512

== ENCOUNTER 2020-12-08 17:46 | Emergency (ER) | payer SELFPAY ==
--- OUTSIDE RECORDS SUMMARY | 2020-12-08 17:49 | XMS REPORT | Continuity of Care Document ---
:1985 Author Organization [facility] t Address [address] [place] [address] Care Team Providers Name Role Phone Asked, Pcp Primary Care Physician Unavailable Lucio MOJICA S Attending Clinician Doctor Unassigned, Name Attending Clinician Unavailable Vernon Perez Attending Clinician Delta GREEN, R Attending Clinician Unavailable Po, [facility] Attending Clinician Unavailable Octavio GREEN, E Attending Clinician Pcp, Does Not Have A Attending Clinician Payers Payer Name Policy Type Policy Number Effective Date Expiration Date S ource Problems Condition Condition Condition Status Onset Resolution Last Treating Co mments Source Name Details Category Date Date Treatment Clinician Date Substance Substance Disease Active Rajan ston use use 9-18 [facility] disorder disorder 00:00: st 00 Allergies, Adverse Reactions, Alerts Allergy Allergy Status Severity Reaction(s) Onset Inactive Treating Comm ents Source Name Type Date Date Clinician No Known DA Active U 2017-07 [facility] Family History Family Member Diagnosis Comments Start Date Stop Date Source Natural mother No Known Problems Rajan naheed Hoahaoism Paternal aunt No Known Problems [place] marisa Hoahaoism Paternal grandfather No Known Problems [place] Hoahaoism Paternal grandmother No Known Problems [place] Hoahaoism Paternal uncle No Known Problems Rajan stoayana Hoahaoism Natural sister No Known Problems Rajan stoayana Hoahaoism Natural brother No Known Problems Ho dayanara Hoahaoism Cousin No Known Problems [place] Hoahaoism Natural father No Known Problems Rajan stoayana Hoahaoism Maternal aunt No Known Problems [place] marisa Hoahaoism Maternal grandfather No Known Problems [place] Hoahaoism Maternal grandmother No Known Problems [place] Hoahaoism Maternal uncle No Known Problems Rajancatherine farfan Hoahaoism Social History Social Habit Start Date Stop Date Quantity Comments Source History of tobacco Cigarette Smoker [place] use Hoahaoism Cigarettes smoked 2018-04-12 2018-04-12 [place] current (pack per 00:00:00 00:00:00 [facility] ) - Reported Cigarette 2018-04-12 2018-04-12 [place] pack-years 00:00:00 00:00:00 Hoahaoism Sex Ass[birth year] At [birth year] [place] 00:00:00 00:00:00 Hoahaoism Smoking Status Start Date Stop Date Source Current every day smoker 2018-04-12 00:00:00 Rajan farfan Hoahaoism Medications This patient has no known medications. Procedures This patient has no known procedures. Encounters Start End Encounter Admission Attending Care Care Encounter Source Date/Time Date/Time Type Type Clinicians Facility Department ID 2020-11-01 2020-11-04 Emergency [facility] [id number] 17:57:00 01:17:00 Oscar Montelongo [id number] [place] [id number] [place] [id number] 2020-11-01 2020-11-01 Orders Doctor EPI [id number] 00:00:00 00:00:00 Only Unassigned, MIRTA [id number] [place] [id number] 2019-11-01 2019-11-01 Letter EPI [place] [id number] 00:00:00 00:00:00 (Out) Lori KIRBY [id number] [facility] [id number] 2019-10-28 2019-10-28 Telephone EPI [place] [id number] 00:00:00 00:00:00 [place] R MIRTA [id number] [facility] [id number] 2019-10-26 2019-10-26 Urgent Pob1, Acute [facility] [id number] 14:49:36 15:27:44 [facility] [id number] [place] [id number] [facility] [id number] nal [address] 2019-10-26 2019-10-26 Nurse Adali Cunningham [id number] 00:00:00 00:00:00 Triage E MIRTA [id number] [facility] [id number] 2019-10-26 2019-10-26 Telephone EPI [place] [id number] 00:00:00 00:00:00 Patient MIRTA [id number] Does Not HOSPITAL [id number] Have A [id number] Results This patient has no known results.
[2020-12-08 18:57] LABS: Absolute Lymphocytes (CBC) 1.1 K/uL (0.7-4.9); Basophils % 0.4 % (0-1.3); Hematocrit 42.1 % (39.6-49.0); Lymphocytes % 12.3 % (15.3-44.8)
[2020-12-08 19:17] LABS: ALT/SGPT 47 U/L (12-78); AST/SGOT 45 U/L (15-37); Albumin 4.4 g/dL (3.4-5.0); Alkaline Phosphatase 80 U/L (45-117); BUN Blood Urea Nitrogen 10 mg/dL (7-18); Bicarbonate 28 mmol/L (21-32); Bilirubin Direct 0.5 mg/dL (0-0.2); Bilirubin Total 1.9 mg/dL (0.2-1.0); Glucose Level 90 mg/dL (74-106); Potassium 3.2 mmol/L (3.5-5.1); Protein, Total 8.2 g/dL (6.4-8.2); Sodium Level 136 mmol/L (136-145)
[2020-12-08 19:18] LABS: Protime INR 1.08
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
[2020-12-08 21:50] LABS: Urine Blood Trace-intact (Negative); Urine Glucose Negative (Negative); Urine Protein Negative (Negative); Urine Specific Gravity 1.015 (1.005-1.030)
[2020-12-08 22:08] LABS: Barbiturates NEGATIVE (NEGATIVE); Benzodiazepines NEGATIVE (NEGATIVE); Cocaine NEGATIVE (NEGATIVE); METHAMPHETAM POSITIVE (NEGATIVE); Methadone NEGATIVE (NEGATIVE); Opiates NEGATIVE (NEGATIVE); Phencyclidine NEGATIVE (NEGATIVE); THC Cannibis POSITIVE (NEGATIVE)
[2020-12-08] MEDS ORDERED: POTASSIUM 25 MEQ EFFERV TAB ONE (22:11)
[2020-12-09] MEDS ORDERED: LORazepam 2 MG/ML VIAL ONE (07:51)
[2020-12-09] MEDS ORDERED: LORAZEPAM 1 MG TABLET ONE ×2 (07:54→14:07)
[2020-12-09 15:04] VITALS: TEMP 97.2; O2SAT 100
[2020-12-09 15:06] VITALS: BP 130/78
== END 2020-12-09 14:38 | disposition home or self-care (01) ==
LOC: ER 17:46
DX: R45.851 Suicidal ideations (principal); F10.10 Alcohol abuse, uncomplicated; F12.10 Cannabis abuse, uncomplicated; F15.10 Other stimulant abuse, uncomplicated; F32.9 Major depressive disorder, single episode, unspecified; F17.210 Nicotine dependence, cigarettes, uncomplicated; Z20.822 Contact with and (suspected) exposure to COVID-19
CPT/HCPCS: 36415; 80048; 80076; 80307; 80320; 80329; 81003; 85025; 85610; 85730; 93005; 99285; U0003

== ENCOUNTER 2021-06-24 09:23 | Emergency (ER) | payer SELFPAY ==
--- OUTSIDE RECORDS SUMMARY | 2021-06-24 09:26 | XMS REPORT | Continuity of Care Document ---
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 fL 38.5-51.6 51167-7) RDW-CV (test code = 12.3 % 12.1-15.4 788-0) PLT (test code = See_Comment [Automated 777-3) message] The sy stem which generated this result transmitted reference range : 150 - 328 10*3/ ?L. The reference r waqas was not used to interpret this result as normal/abnormal . MPV (test code = 9.2 fL 9.8-13.0 L 29942-2) NRBC/100 WBC (test See_Comment [Automat ed code = 1246804593) message] The system which generated this result transmitted reference range : 0.0 - 10.0 /100 WBCs. The refer ence range was not u sed to interpret th is result as normal/abnormal . NRBC x10^3 (test code <0.01 See_Comment [Auto mated = 7471011899) message] The s ystem which generated this result transmitted reference range : 10*3/?L. The reference range was not used to interpret this result as normal/abnormal . GRAN MAT (NEUT) % 61.3 % (test code = 770-8) IMM GRAN % (test code 0.30 % = 7336123874) LYMPH % (test code = 26.0 % 736-9) MONO % (test code = 9.4 % 5905-5) EOS % (test code = 2.5 % 713-8) BASO % (test code = 0.5 % 706-2) GRAN MAT x10^3(ANC) 6.14 10*3/uL 1.99-6.95 (test code = 3027541934) IMM GRAN x10^3 (test 0.03 10*3/uL 0.00-0.06 code = 2915355165) LYMPH x10^3 (test code 2.61 10*3/uL 1.09-3.23 = 731-0) MONO x10^3 (test code 0.94 10*3/uL 0.36-1.02 = 742-7) EOS x10^3 (test code = 0.25 10*3/uL 0.06-0.53 711-2) BASO x10^3 (test code 0.05 10*3/uL 0.01-0.09 = 704-7) Lab Interpretation Abnormal (test code = 77140-5) [facility]"
[2021-06-24] MEDS ORDERED: ONDANSETRON 4 MG (ODT) TAB ONE ×2 (10:05→13:52)
[2021-06-24] MEDS ORDERED: PANTOPRAZOLE 40 MG INJ ONE (12:43)
[2021-06-24] MEDS ORDERED: NA CHLORIDE 0.9% 1,000 ML ONE ×2 (12:44→14:39)
[2021-06-24 13:14] LABS: Absolute Lymphocytes (CBC) 2.1 K/uL (0.7-4.9); Basophils % 0.3 % (0-1.3); Hematocrit 51.5 % (39.6-49.0); Lymphocytes % 11.1 % (15.3-44.8); MPV 7.7 fL (7.6-11.3); RBC Red Blood Cell Count 5.76 M/uL (4.33-5.43)
[2021-06-24 13:33] LABS: Albumin 4.2 g/dL (3.4-5.0); Bilirubin Direct 0.2 mg/dL (0-0.2); Bilirubin Total 0.8 mg/dL (0.2-1.0); Potassium 3.7 mmol/L (3.5-5.1); Protein, Total 8.9 g/dL (6.4-8.2)
--- NOTE | 2021-06-24 14:54 | RAD REPORT ---
EXAM DESCRIPTION: CT - Abdomen Pelvis W Contrast - 06/24/2021 2:11 pm CLINICAL HISTORY: ABD PAIN COMPARISON: No comparisons TECHNIQUE: Biphasic, helical CT imaging of the abdomen and pelvis was performed following 100 ml non -ionic IV contrast. No oral contrast administered. All CT scans are performed using dose optimization technique as appropriate and may include automated exposure control or mA/KV adjustment according to patient size. FINDINGS: No suspicious findings in the lung bases. The liver, spleen, and pancreas show no suspicious findings. Gallbladder and biliary tree are also wi thout suspicious finding. Symmetric renal function is seen with no hydronephrosis or suspicious renal mass. No pyelonephritis o r acute parenchymal process. No bladder abnormalities. No adrenal abnormalities. No dilated bowel loops or bowel wall thickening. Appendix is normal No free air, free fluid or inflam matory stranding. No hernia, mass or bulky lymphadenopathy. No suspicious bony findings. IMPRESSION: Contrast enhanced CT abdomen and pelvis showing no significant or suspicious finding.
--- NOTE | 2021-06-24 15:24 | ER ---
Nurse's Notes [facility] Name: Mac Kern Age: 36 yrs Sex: Male : 1985 Arrival Date: 06/24/2021 Time: 09:24 Bed 13 Private MD: Diagnosis: Nausea with vomiting, unspecified;Abdominal pain, unspecified Presentation: 06/24 10:02 Chief complaint: Patient states: N/V abd that began Wednesday. 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 Last use was on before symptoms began. Coronavirus screen: Client denies travel out of the [place] in the last 14 days. Ebola Screen: Patient denies exposure to infectious person. Patient denies travel to an Ebola-affected area in the 21 days before illness onset. Initial Sepsis Screen: Does the patient meet any 2 criteria? No. Patient's initial sepsis screen is negative. Does the patient have a suspected source of infection? No. Patient's initial sepsis screen is negative. Risk Assessment: Do you want to hurt yourself or someone else? Patient reports no desire to harm self or others. Onset of symptoms was June 20, 2021. 10:02 Method Of Arrival: Ambulatory ss 10:02 Acuity: RANDA 3 ss Historical: - Allergies: 10:04 No Known Allergies; ss - PMHx: 10:04 RETINAL DETACHMENT; Depression; ss - Immunization history:: Client reports having NOT received the Covid vaccine. - Social history:: Smoking status: Patient reports the use of cigarette tobacco products, smokes one-half pack cigarettes per day. Screenin:48 Abuse screen: Denies threats or abuse. Nutritional screening: No deficits noted. vg1 Tuberculosis screening: No symptoms or risk factors identified. Fall Risk No fall in past 12 months (0 pts). No secondary diagnosis (0 pts). IV access (20 points). Ambulatory Aid- None/Bed Rest/Nurse Assist (0 pts). Gait- Normal/Bed Rest/Wheelchair (0 pts) Mental Status- Oriented to own ability (0 pts). Total [place] Fall Scale indicates No Risk (0-24 pts). Assessment: 12:42 General: Appears in no apparent distress. uncomfortable, Behavior is calm, cooperative. vg1 Pain: Complains of pain in abdomen Pain currently is 5 out of 10 on a pain scale. Pain began 2-3 days ago. Neuro: Level of Consciousness is awake, alert, obeys commands, Oriented to person, place, time, situation. Cardiovascular: Patient's skin is warm and dry. Respiratory: Airway is patent Respiratory effort is even, unlabored. GI: Abdomen is flat, Bowel sounds present X 4 quads. Abd is soft and non tender X 4 quads. Reports nausea, normal bowel habits, vomiting, Patient currently denies diarrhea. : No signs and/or symptoms were reported regarding the genitourinary system. EENT: No signs and/or symptoms were reported regarding the EENT system. Derm: Skin is intact, is healthy with good turgor. Musculoskeletal: Circulation, motion, and sensation intact. 14:00 Reassessment: Patient appears in no apparent distress at this time. Patient and/or vg1 family updated on plan of care and expected duration. Pain level reassessed. Patient is alert, oriented x 3, equal unlabored respirations, skin warm/dry/pink. 15:48 Reassessment: Patient appears in no apparent distress at this time. Patient and/or vg1 family updated on plan of care and expected duration. Pain level reassessed. Patient is alert, oriented x 3, equal unlabored respirations, skin warm/dry/pink. Patient states feeling better. Vital Signs: 10:02 BP 132 / 90; Pulse 93; Resp 17; Temp 97.6(TE); Pulse Ox 98% on R/A; Weight 88.45 kg; ss Height 5 ft. 10 in. (177.80 cm); Pain 5/10; 13:13 BP 132 / 79; Pulse 66; Resp 16; Pulse Ox 99% ; vg1 14:45 BP 123 / 73; Pulse 64; Resp 19; Pulse Ox 99% ; vg1 15:48 BP 131 / 78; Pulse 72; Resp 16; Pulse Ox 98% ; vg1 10:02 Body Mass Index 27.98 (88.45 kg, 177.80 cm) ED Course: 09:24 Patient arrived in ED. ds1 10:04 Triage completed. ss 10:04 Arm band placed on right wrist. ss 12:24 Adriano Sims PA is PHCP. cp 12:24 Adriano Haro MD is Attending Physician. cp 12:41 Cosme, Amy, RN is Primary Nurse. vg1 13:11 Initial lab(s) drawn, by me, sent to lab. Inserted saline lock: 20 gauge in right vg1 antecubital area, using aseptic technique. Blood collected. 14:11 CT Abd/Pelvis - IV Contrast Only In Process Unspecified. EDNY 14:47 Bed in low position. Call light in reach. Side rails up X 1. vg1 14:48 No provider procedures requiring assistance completed. vg1 15:49 IV discontinued, intact, bleeding controlled, No redness/swelling at site. Pressure vg1 dressing applied. Administered Medications: 10:06 Drug: Ondansetron 4 mg Route: PO; ss 14:46 Follow up: Response: No adverse reaction; Marked relief of symptoms vg1 13:05 Drug: NS 0.9% 1000 ml Route: IV; Rate: 1 bolus; Site: right antecubital; vg1 14:46 Follow up: IV Status: Completed infusion; IV Intake: 1000ml vg1 13:06 Drug: ProTONIX (pantoprazole) 40 mg Route: IVP; Site: right antecubital; vg1 14:46 Follow up: Response: No adverse reaction; Marked relief of symptoms vg1 14:46 Drug: NS 0.9% 1000 ml Route: IV; Rate: 1 bolus; Site: right antecubital; vg1 16:53 Follow up: IV Status: Completed infusion; IV Intake: 1000ml vg1 Intake: 14:46 IV: 1000ml; Total: 1000ml. vg1 16:53 IV: 1000ml; Total: 2000ml. vg1 Outcome: 15:24 Discharge ordered by . cp 15:48 Discharged to home ambulatory. vg1 15:48 Condition: stable 15:48 Discharge instructions given to patient, Instructed on discharge instructions, follow up and referral plans. medication usage, Demonstrated understanding of instructions, follow-up care, medications, Prescriptions given X 2. 15:49 Patient left the ED. vg1 Signatures: Dispatcher [employer] [facility] Mayranne Felix ds1 Lucina Lee RN RN ss Adriano Sims PA PA cp Garcia, Victoria, RN RN vg1 Corrections: (The following items were deleted from the chart) 10:05 10:04 Allergies: Iodine; ss ss
--- NOTE | 2021-06-24 15:25 | EDPHYS ---
Physician Documentation [facility] Name: Mac Kern Age: 36 yrs Sex: Male : 1985 Arrival Date: 06/24/2021 Time: 09:24 Bed 13 Private MD: ED Physician Adriano Haro HPI: 06/24 13:15 This 36 yrs old Male presents to ER via Ambulatory with complaints of Abdominal Pain, cp Vomiting Blood. 13:15 The patient presents with abdominal pain in the epigastric area, in the upper abdomen. cp 13:15 Onset: The symptoms/episode began/occurred 4 day(s) ago. cp 13:15 The symptoms do not radiate. Associated signs and symptoms: Pertinent positives: cp vomiting blood, Pertinent negatives: blood in stools, chest pain, constipation, diarrhea, fever. Severity of pain: in the emergency department the pain is unchanged despite home interventions. Patient reports nausea/vomiting started this past Wednesday and admits to using methamphetamine the day before. Patient reports noticing bright red blood in vomitus today. Historical: - Allergies: 10:04 No Known Allergies; ss - PMHx: 10:04 RETINAL DETACHMENT; Depression; ss - Immunization history:: Client reports having NOT received the Covid vaccine. - Social history:: Smoking status: Patient reports the use of cigarette tobacco products, smokes one-half pack cigarettes per day. ROS: 13:20 Constitutional: Negative for body aches, chills, fever. cp 13:20 Eyes: Negative for injury, pain, redness, and discharge. cp 13:20 ENT: Negative for ear pain, sore throat, difficulty swallowing, difficulty handling secretions. 13:20 Cardiovascular: Negative for chest pain, palpitations. 13:20 Respiratory: Negative for cough, shortness of breath, wheezing. 13:20 Abdomen/GI: Positive for abdominal pain, nausea and vomiting, hematemesis, of the epigastric area, right upper quadrant and left upper quadrant, Negative for diarrhea, constipation. 13:20 Back: Negative for radiated pain. 13:20 : Negative for urinary symptoms. 13:20 Neuro: Negative for altered mental status, headache, weakness. 13:20 All other systems are negative. Exam: 13:25 Constitutional: The patient appears in no acute distress, alert, awake, non-toxic, well cp developed, well nourished. 13:25 Head/Face: Normocephalic, atraumatic. cp 13:25 Eyes: Periorbital structures: appear normal, Conjunctiva: normal, no exudate, no injection, Sclera: no appreciated abnormality, Lids and lashes: appear normal, bilaterally. 13:25 ENT: External ear(s): are unremarkable, Nose: is normal, Mouth: Lips: moist, Oral mucosa: moist, Posterior pharynx: Airway: no evidence of obstruction, patent. 13:25 Chest/axilla: Inspection: normal, Palpation: is normal, no crepitus, no tenderness. 13:25 Cardiovascular: Rate: normal, Rhythm: regular. 13:25 Respiratory: the patient does not display signs of respiratory distress, Respirations: normal, no use of accessory muscles, no retractions, labored breathing, is not present, Breath sounds: are clear throughout, no decreased breath sounds, no stridor, no wheezing. 13:25 Abdomen/GI: Inspection: abdomen appears normal, Bowel sounds: active, all quadrants, Palpation: soft, in all quadrants, mild abdominal tenderness, in the epigastric area, right upper quadrant and left upper quadrant, rebound tenderness, is not appreciated, voluntary guarding, is not appreciated, involuntary guarding, is not appreciated. 13:25 Back: pain, is absent, ROM is normal. 13:25 Neuro: Orientation: to person, place \T\ time. Mentation: is normal, Motor: moves all fours, strength is normal, Sensation: is normal. Vital Signs: 10:02 BP 132 / 90; Pulse 93; Resp 17; Temp 97.6(TE); Pulse Ox 98% on R/A; Weight 88.45 kg; ss Height 5 ft. 10 in. (177.80 cm); Pain 5/10; 13:13 BP 132 / 79; Pulse 66; Resp 16; Pulse Ox 99% ; vg1 14:45 BP 123 / 73; Pulse 64; Resp 19; Pulse Ox 99% ; vg1 15:48 BP 131 / 78; Pulse 72; Resp 16; Pulse Ox 98% ; vg1 10:02 Body Mass Index 27.98 (88.45 kg, 177.80 cm) MDM: 12:32 Patient medically screened. cp 13:00 Differential diagnosis: cholecystitis, Cholelithiasis, pancreatitis, Peptic Ulcer cp Disease, Perf. Duodenal Ulcer, Perf. Gastric Ulcer, Peritonitis, Pyelonephritis, Ureterolithiasis, urinary tract infection. 15:22 Data reviewed: vital signs, nurses notes, lab test result(s), radiologic studies, CT cp scan. 15:22 Counseling: I had a detailed discussion with the patient and/or guardian regarding: the cp historical points, exam findings, and any diagnostic results supporting the discharge/admit diagnosis, lab results, radiology results, to return to the emergency department if symptoms worsen or persist or if there are any questions or concerns that arise at home. Response to treatment: the patient's symptoms have markedly improved after treatment. Special discussion: Based on the patient's Hx, exam, and Dx evaluation, there is no indication for emergent surgery or inpatient Tx. It is understood by the patient/guardian that if the Sx's persist or worsen they need to return immediately for re-evaluation. ED course: VSS. Patient observed sleeping in exam room. CT abdomen/pelvis negative for acute findings. Vomiting resolved and patient observed tolerating po fluids. Will discharge to home for continued monitoring. 06/24 12:33 Order name: Basic Metabolic Panel; Complete Time: 13:40 cp 06/24 13:40 Interpretation: Normal except: NA 134; CL 95; GLUC 108; CRE 1.37; GFR 59; CA 10.2. 06/24 12:33 Order name: CBC with Diff; Complete Time: 13:40 cp 06/24 15:20 Interpretation: Normal except: WBC 18.70; RBC 5.76; HCT 51.5; NASRA% 82.2; LYM% 11.1; cp NEUT A 15.4. 06/24 12:33 Order name: Hepatic Function; Complete Time: 13:40 cp 06/24 12:33 Order name: Lipase; Complete Time: 13:40 cp 06/24 13:40 Order name: CT Abd/Pelvis - IV Contrast Only; Complete Time: 15:01 cp 06/24 12:33 Order name: IV Saline Lock; Complete Time: 13:11 cp 06/24 12:33 Order name: Labs collected and sent; Complete Time: 13:11 cp 06/24 15:02 Order name: PO challenge; Complete Time: 15:48 cp Administered Medications: 10:06 Drug: Ondansetron 4 mg Route: PO; ss 14:46 Follow up: Response: No adverse reaction; Marked relief of symptoms vg1 13:05 Drug: NS 0.9% 1000 ml Route: IV; Rate: 1 bolus; Site: right antecubital; vg1 14:46 Follow up: IV Status: Completed infusion; IV Intake: 1000ml vg1 13:06 Drug: ProTONIX (pantoprazole) 40 mg Route: IVP; Site: right antecubital; vg1 14:46 Follow up: Response: No adverse reaction; Marked relief of symptoms vg1 14:46 Drug: NS 0.9% 1000 ml Route: IV; Rate: 1 bolus; Site: right antecubital; vg1 16:53 Follow up: IV Status: Completed infusion; IV Intake: 1000ml vg1 Disposition: 06/25 09:17 Co-signature as Attending Physician, Adriano Haro MD I agree with the assessment and allegra plan of care. Disposition Summary: 06/24/21 15:24 Discharge Ordered Location: Home cp Problem: new cp Symptoms: have improved cp Condition: Stable cp Diagnosis - Nausea with vomiting, unspecified cp - Abdominal pain, unspecified cp Followup: cp - With: Emergency Department - When: As needed - Reason: Worsening of condition Discharge Instructions: - Discharge Summary Sheet cp - Abdominal Pain, Adult cp - Nausea and Vomiting, Adult cp Forms: - Medication Reconciliation Form cp - Thank You Letter cp - Antibiotic Education cp - Prescription Opioid Use cp Prescriptions: - Protonix 40 mg Oral Tablet - take 1 tablet by ORAL route once daily; 30 tablet; Refills: 0, Product cp Selection Permitted - promethazine 25 mg Oral Tablet - take 1 tablet by ORAL route every 6 hours As needed; 20 tablet; Refills: 0, cp Product Selection Permitted Signatures: Dispatcher [employer] Adriano Sharma MD MD cha Smirch, Shelby, RN RN Adriano Benavides PA PA cp Garcia, Victoria RN RN vg1 Corrections: (The following items were deleted from the chart) 06/24 10:05 10:04 Allergies: Iodine; ss ss
[2021-06-24 15:57] VITALS: TEMP 97.6
[2021-06-24 16:01] VITALS: BP 131/78; O2SAT 98
== END 2021-06-24 15:49 | disposition home or self-care (01) ==
LOC: ER 09:23
DX: R11.2 Nausea with vomiting, unspecified (principal); R10.9 Unspecified abdominal pain
CPT/HCPCS: 36415; 74177; 80048; 80076; 83690; 85025; 96361; 96374; 99284; C9113; J7030; Q9967

== ENCOUNTER 2021-07-19 07:39 | Emergency (ER) | payer SELFPAY ==
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
--- NOTE | 2021-07-19 08:17 | ER ---
Nurse's Notes [facility] Name: Mac Kern Age: 36 yrs Sex: Male : 1985 Arrival Date: 07/19/2021 Time: 07:39 Bed 12 [facility] MD: Diagnosis: ED Course: 07/19 07:39 Patient arrived in ED. ds1 08:03 Syl Buckley MD is Attending Physician. [email or web address] Administered Medications: No medications were administered Outcome: 08:16 Patient left the ED. iw 08:19 Eloped from waiting room, before seeing physician Time discovered patient gone: iw July 19, 2021 at 08:19 Signatures: Maryanne Felix ds1 Darline Holland RN RN Syl Buckley MD MD ma2
== END 2021-07-19 08:16 | disposition left against medical advice (07) ==
LOC: ER 07:39
DX: Z02.9 Encounter for administrative examinations, unspecified (principal)

== ENCOUNTER 2021-07-19 20:08 | Emergency (ER) | payer SELFPAY ==
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
[2021-07-19 22:48] VITALS: BP 144/88; TEMP 98.3; O2SAT 99
== END 2021-07-19 21:56 | disposition left against medical advice (07) ==
LOC: ER 20:08
DX: R10.9 Unspecified abdominal pain (principal); Z53.21 Procedure and treatment not carried out due to patient leaving prior to being seen by health care provider
CPT/HCPCS: 99281

== ENCOUNTER 2022-09-04 08:30 | Emergency (ER) | payer SELFPAY ==
--- OUTSIDE RECORDS SUMMARY | 2022-09-04 08:44 | XMS REPORT | Continuity of Care Document ---
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 Administer over 3 Hours, 50 mL
Rest ricted use approved by: [address]
R michelle for Anti-Infec tive: Surgical Prophylaxi s
Surgi carolyn Prophylaxi s: Abdominal< br>Duratio n of therapy: within 24 hours of surgery meropenem No 1000mg 1,000 mg, Univers (MERREM) 11-08 IV ity of 1,000 mg in 12:45: 20:55 Piggyback, [place] NaCl 0.9% 00 :23 Q8H ABX, Medica l (NS) 50 mL First dose Bra nch MINI-BAG on 11/08/21 at 0745, Until Discontinu ed, Administer over 3 Hours, 50 mL
Rest ricted use approved by: FRANK [address] [place] [address]
R michelle for Anti-Infec tive: Surgical Prophylaxi s
Surgi carolyn Prophylaxi s: Abdominal< br>Duratio n of therapy: within 24 hours of surgery phytonadion No 10mg IV Unive rs e (VITAMIN 11-08 Piggyback, it y of K) 10 mg in 11:15: 11:58 ONCE, 1 [place] NaCl 0.9% 00 :00 dose, On Medica l (NS) Sat Branch piggyback 11/08/21 at 0615, 50 mL magnesium No 4g 4 g, IV Univ ers sulfate in 11-08 Piggyback, it y of water 4 11:00: 11:56 ONCE, 1 [place] gram/50 mL 00 :00 dose, On Medic al (8 %) IV Sat Branch Piggyback 4 11/08/21 at g 0600, Routine albumin No 25g 25 g, IV Unive rs (ALBUTEIN 5 11-08 Infusion, it y of %) 5 % 10:00: 10:05 ONCE, 1 [place] injection 00 :00 dose, On Medica l 25 g Sat Branch 11/08/21 at 0500, 500 mL
Preethi cation: SHOCK/IMPE NDING SHOCK propofoL IV 2021- No 5ug/kg/ 5-50 Un artur infusion 11-08-16 min mcg/kg/min ity of 08:49: 17:10 ?81 kg [place] 34 :11 (2.43-24.3 Medical mL/hr), IV Branch Infusion, TITRATE, Sedation-R ASS score (0 to -1), Starting on 11/08/21 at 0349
In itiate infusion at 5 mcg/kg/min and titrate by 5 mcg/kg/min every 30 seconds to 10 minutes to goal sedation score. Maximum dose = 50 mcg/kg/min . If goal not maintained at maximum allowed dose, contact prescriber . &nbs p;Tubing and unused portions of vials should be discarded after 12 hours.
D5W 0.45% Yes IV Univers NaCl 11-08 Infusion, ity of (1/2NS) 1 L 08:00: at 125 [place] + KCL 20 00 mL/hr, Medical mEq CONTINUOUS Branch , Starting on 11/08/21 at 0300, Until Discontinu ed, Routine D5W 0.45% 2021- No IV Univers NaCl 11-08 04-20 Infusion, ity of (1/2NS) 1 L 08:00: 18:13 at 125 [place] + KCL 20 00 :16 mL/hr, Medical mEq CONTINUOUS Branch , Starting on 11/08/21 at 0300, Until 11/12/21 at 1313, Routine bupivacaine 2021- No PRN, Unive rs liposome 11-08 Starting ity of (PF) 07:15: 07:50 on [facility] (EXPAREL 00 :35 11/08/21 at Medic al (PF)) 1.3 % 0215, Branch (13.3 Until Sat mg/mL) 11/08/21 at injection 0250, Routine, Intra-op lactated 2021- No 1000mL at 999 Univ ers ringers IV 4-16 04-16 mL/hr, ity of infusion 05:45: 09:00 1,000 mL, [place] 1,000 mL 00 :00 Intravenou Medic al s, ONCE, 1 Branch dose, On 11/08/21 at 0045, Routine micafungin 0 Yes 100mg 100 mg, IV Univers (MYCAMINE) 11-08 Piggyback, ity of 100 mg in 05:15: Q24H ABX, [place] NaCl 0.9% 00 First dose Medi carolyn (NS) 100 mL on Sat Branch MINI-BAG 11/08/21 at 0015, Until Discontinu ed, Administer over 60 Minutes, 100 mL
Rest ricted use approved by: FRANK [address] [place] [address]
R michelle for Anti-Infec tive: Surgical Prophylaxi s
Surgi carolyn Prophylaxi s: Abdominal< br>Duratio n of therapy: within 24 hours of surgery linezolid 0 Yes 600mg 600 mg, IV U nivers in dextrose 11-08 Infusion, ity of 5% (ZYVOX) 05:15: Q12H ABX, [place] 600 mg/300 00 First dose Med ical mL iv on Sat Branch infusion 11/08/21 at 600 mg 0015, Until Discontinu ed, 300 mL
R michelle for Anti-Infec tive: Surgical Prophylaxi s
Surgi carolyn Prophylaxi s: Abdominal< br>Duratio n of therapy: within 24 hours of surgery
Restricte d use approved by: After hours micafungin 0 2021- No 100mg 100 mg, IV Univers (MYCAMINE) 11-0819 Piggyback, it y of 100 mg in 05:15: 21:12 Q24H ABX, [place] NaCl 0.9% 00 :00 First dose Medi carolyn (NS) 100 mL on Sat Branch MINI-BAG 11/08/21 at 0015, Until Discontinu ed, Administer over 60 Minutes, 100 mL
Rest ricted use approved by: FRANK [address] [place] [address]
R michelle for Anti-Infec tive: Surgical Prophylaxi s
Surgi carolyn Prophylaxi s: Abdominal< br>Duratio n of therapy: within 24 hours of surgery linezolid 2022-0 2022- No 600mg 600 mg, IV Univers in dextrose 11-08 Infusion, it y of 5% (ZYVOX) 05:15: 20:55 Q12H ABX, [place] 600 mg/300 00 :23 First dose Med ical mL iv on Sat Branch infusion 11/08/21 at 600 mg 0015, Until Discontinu ed, 300 mL
R michelle for Anti-Infec tive: Surgical Prophylaxi s
Surgi carolyn Prophylaxi s: Abdominal< br>Duratio n of therapy: within 24 hours of surgery
Restricte d use approved by: After hours meropenem No 1000mg 1,000 mg, Univers (MERREM) 11-08 IV ity of 1,000 mg in 05:15: 05:02 Piggyback, [place] NaCl 0.9% 00 :00 ONCE, 1 Medical (NS) 50 mL dose, On Branc h MINI-BAG 11/08/21 at 0015, Administer over 30 Minutes, 50 mL
Rest ricted use approved by: FRANK [address]LO[address]
R michelle for Anti-Infec tive: Surgical Prophylaxi s
Surgi carolyn Prophylaxi s: Abdominal< br>Duratio n of therapy: within 24 hours of surgery albumin 2021- No 25g 25 g, IV Unive rs (ALBUTEIN 5 11-08 Infusion, it y of %) 5 % 05:00: 08:00 ONCE, 1 [place] injection 00 :00 dose, On Medica l 25 g Sat Branch 11/08/21 at 0000, 500 mL
Preethi cation: SHOCK/IMPE NDING SHOCK pantoprazol Yes 40mg 40 mg, Univ ers e 11-08 Slow IV ity of (PROTONIX) 01:00: Push, [place] injection 00 Q12H, Medical 40 mg First dose Branch on Wed11/07/21 at 2000, Until Discontinu ed pantoprazol 2021- No 40mg 40 mg, Uni vers e 11-08 Slow IV ity of (PROTONIX) 01:00: 05:47 Push, [place] injection 00 :27 Q12H, Medical 40 mg First dose Branch on Wed11/07/21 at 2000, Until Discontinu ed ketorolac No 30mg 30 mg, Unive rs (TORADOL) 11-07 Slow IV ity of injection 22:38: 07:50 Push, [place] 30 mg 32 :35 Q6HPRN, Medical Starting Branch on Wed11/07/21 at 1738, Until 11/08/21 at 0250, Routine, Pain (scale 4-6) morpHINE No 2mg 2 mg, Slow Un artur injection 2 11-07 IV Push, ity of mg 22:36: 07:50 Q4HPRN, [place] 05 :35 Starting Medical on Wed Branch 11/07/21 at 1736, Until 11/08/21 at 0250, Routine, Pain (scale 7-10) LORazepam No 1mg 1 mg, Slow U nivers (ATIVAN) 11-07 IV Push, ity of injection 1 22:35: 07:50 QIDPRN, [place] mg 46 :35 Starting Medical on Wed Branch 11/07/21 at 1735, Until 11/08/21 at 0250, Routine, Anxiety, Agitation benzocaine 2021- No 1{spray 1 [place], Univers (HURRICAINE 11-07 } Oral, ity of ONE) 20 % 22:03: 07:50 Q2HPRN, [place] mucosal 23 :35 Starting Medical spray 1 on Wed Branch [place] 11/07/21 at 1703, Until 11/08/21 at 0250, Routine, sore throat NaCl 0.9% 2021- No 1000mL at 999 Uni vers (NS) bolus 11-07 mL/hr, ity of infusion 22:00: 08:00 1,000 mL, [place] 1,000 mL 00 :00 IV Medical Piggyback, Branch ONCE, 1 dose, On Wed11/07/21 at 1700, STAT NaCl 0.9% 2021- No IV Univers (NS) 11-07 Infusion, ity of PEDIATRIC 22:00: 07:50 at 150 [place] IV infusion 00 :35 mL/hr, Medica l CONTINUOUS Branch , Starting on Wed11/07/21 at 1700, Until Wed11/08/21 at 0250, Routine acetaminoph No 1000mg 1,000 mg, Univers en ADULT 11-07 IV ity of (OFIRMEV) 19:30: 10:37 Infusion, [place] injection 00 :00 Administer Medi carolyn 1,000 mg over 15 Branch Minutes, Q8H, 3 doses, First dose (after last modificati on) on Wed11/07/21 at 1430, Last dose on Wed11/08/21 at 0600, Routine
Indicatio n: Non-periop erative Patient
Approved by: Per Policy (NPO Status) ketorolac No 30mg 30 mg, Unive rs (TORADOL) 11-07 Slow IV ity of injection 18:28: 22:38 Push, [place] 30 mg 45 :55 Q6HPRN, Medical Starting Branch on Wed11/07/21 at 1328, Until Wed11/07/21 at 1738, Routine, Pain (scale 7-10) NaCl 0.9% No 1000mL at 999 Uni vers (NS) bolus 11-07 mL/hr, ity of infusion 17:45: 08:00 1,000 mL, [place] 1,000 mL 00 :00 IV Medical Piggyback, Branch ONCE, 1 dose, On Wed11/07/21 at 1245, STAT magnesium No 2g 2 g, IV Univ ers sulfate in 11-07 Piggyback, it y of water 2 15:30: 08:00 Administer [place] gram/50 mL 00 :00 over 60 Medica l (4 %) Minutes, Branch infusion 2 ONCE, 1 g dose, On Wed11/07/21 at 1030, Routine enoxaparin No 30mg 30 mg, Univ ers (LOVENOX) 11-07 Subcutaneo ity of injection 14:00: 07:50 us, DAILY, [place] 30 mg 00 :35 First dose Medical on Wed Branch 11/07/21 at 0900, Until Discontinu ed, Routine metoprolol No 5mg 5 mg, Slow Univers (LOPRESSOR) 11-07 IV Push, ity of injection 5 11:45: 10:43 ONCE, 1 [place] mg 00 :00 dose, On Medical Fri Branch 11/07/21 at 0645, Routine NaCl 0.9% 2021- No 2000mL at 999 Uni vers (NS) bolus 11-07 mL/hr, ity of infusion 08:45: 08:00 2,000 mL, [place] 2,000 mL 00 :00 IV Medical Piggyback, [place] ONCE, 1 dose, On 11/07/21 at 0345, ANDRA morpHINE 2021- No 4mg 4 mg, Slow Un artur injection 4 11-07 IV Push, ity of mg 08:30: 18:29 Q2HPRN, [place] 00 :29 Starting Medical on Fri Branch 11/07/21 at 0330, Until 11/07/21 at 1329, Routine, Pain (scale 7-10) ondansetron 2021- No 4mg 4 mg, Slow Univers (ZOFRAN 11-07 IV Push, ity of (PF)) 04:52: 07:50 Q6HPRN, [place] injection 4 16 :35 Starting Medi carolyn mg on [facility] Branch 11/06/21 at 2352, Until 11/08/21 at 0250, Routine, Nausea and Vomiting (N/V) morpHINE 2021- No 4mg 4 mg, Slow Un artur injection 4 11-07 IV Push, ity of mg 04:46: 08:30 Q4HPRN, [place] 55 :37 Starting Medical on [place] Branch 11/06/21 at 2346, Until 11/07/21 at 0330, Routine, Pain (scale 7-10) FENTanyl PF 2021- No 50ug 50 mcg, Un artur (SUBLIMAZE 11-07 Slow IV ity o f (PF)) 03:00: 01:54 Push, [place] injection 00 :00 ONCE, 1 Medical 50 mcg dose, On Branch [facility] 11/06/21 at 2200, STAT piperacilli 2021- No 3.375g 3.375 g, Univers n-tazobacta 11-07 IV ity of m (ZOSYN) 02:45: 03:00 Piggyback, [place] 3.375 g in 00 :00 ONCE, 1 Medica l NaCl 0.9% dose, On Branch (NS) 50 mL [place] MINI-BAG 11/06/21 at 2145, Administer over 30 Minutes, 50 mL
R michelle for Anti-Infec tive: Empiric Therapy for Suspected Infection< br>Empiric Therapy Site: Abdominal< br>Duratio n of therapy: 72 hours D5W 0.9% 2021- No 1000mL at 150 Univ ers NaCl (NS) 11-07 mL/hr, ity of IV infusion 01:45: 20:46 1,000 mL, [place] 1,000 mL 00 :54 IV Medical Infusion, Branch CONTINUOUS , Starting on [place] 11/06/21 at 204, Until Wed11/07/21 at 1546, ANDRA ondansetron 2021- No 4mg 4 mg, Slow Univers (ZOFRAN 11-07 IV Push, ity of (PF)) 01:45: 00:59 ONCE, 1 [place] injection 4 00 :00 dose, On Medi carolyn mg [place] Branch 11/06/21 at 2044, ANDRA ketorolac No 30mg 30 mg, Unive rs (TORADOL) 11-07 Slow IV ity of injection 01:45: 00:59 Push, [place] 30 mg 00 :00 ONCE, 1 Medical dose, On Branch [place] 11/06/21 at 204, Routine
honest [employer] member approving Restricted medication : JL VALDES iopamidol 2021- No [id number] 100mL 100 mL, Univers (ISOVUE 11-07 Intravenou ity o f 370-500 mL) 01:45: 00:30 s, ONCE, 1 [place] injection 00 :00 dose, On Medica l 100 mL [place] Branch 11/06/21 at 204, Routine piperacilli 2021- No 3.375g 3.375 g, Univers n-tazobacta 11-06 IV ity of m (ZOSYN) 10:00: 15:32 Piggyback, [place] 3.375 g in 00 :04 Q6H ABX, Medic al NaCl 0.9% First dose Bran ch (NS) 50 mL (after MINI-BAG last reorder) on [place] 11/06/21 at 0500, Until Discontinu ed, Administer over 30 Minutes, 50 mL
Reas on for Anti-Infec tive: Empiric Therapy for Suspected Infection< br>Empiric Therapy Site: Abdominal< br>Duratio n of therapy: 72 hours mupirocin 2 Yes [id number] Apply to Univers % ointment 2- area(s) 3 ity of 00:00: (three) [place] 00 times Medical daily. Branch mupirocin 2 Yes [id number] Apply to Univers % ointment 2- area(s) 3 ity of 00:00: (three) [place] 00 times Medical daily. Branch mupirocin 2 2021- No [id number] Apply to Univers % ointment 2-11-14 area(s) 3 ity of 00:00: 00:00 (three) [place] 00 :00 times Medical daily. Branch mupirocin 2 2021- No [id number] Apply to Univers % ointment 08-26 area(s) 3 ity of 00:00: 00:00 (three) [place] 00 :00 times Medical daily. Branch ondansetron 2021- No 4mg 4 mg, Slow Univers (ZOFRAN 08-20 IV Push, ity of (PF)) 22:45: 21:42 ONCE, 1 [place] injection 4 00 :00 dose, On Medi carolyn mg Wed Branch 08/20/21 at 1645, ANDRA morpHINE 2021- No 4mg 4 mg, Slow Un artur injection 4 08-20 IV Push, ity of mg 22:45: 21:43 ONCE, 1 [place] 00 :00 dose, On Medical Wed Branch 08/20/21 at 1645, STAT iopamidol 2021- No [id number] 120mL 120 mL, Univers (ISOVUE 08-20 Intravenou ity o f 370-500 mL) 21:02: 21:02 s, ONCE, 1 [place] injection 00 :00 dose, On Medica l 120 mL Wed Branch 08/20/21 at 1515, Routine ketorolac No 15mg 15 mg, Unive rs (TORADOL) 08-20 Intramuscu ity of injection 20:15: 19:24 lar, ONCE, [place] 15 mg 00 :00 1 dose, On Medical Wed Branch 08/20/21 at 1415, ANDAR NaCl 0.9% 2021- No 1000mL at 999 Uni vers (NS) bolus 08-20 mL/hr, ity of infusion 20:15: 22:37 1,000 mL, [place] 1,000 mL 00 :00 IV Medical Infusion, Branch ONCE, 1 dose, On 08/20/21 at 1415, ANDRA dicyclomine 2021-0 Yes [id number] 10mg Take 1 Univers 10 mg 1-26 capsule by ity of capsule 00:00: mouth (four) Medical times Branch daily as needed for Abdominal pain. ondansetron 2021-0 Yes [id number] 4mg Take 1 Univers 4 mg 1-26 tablet by ity of disintegrat 00:00: mouth [place] ing tablet 00 every 12 Medic al (twelve) Branch hours as needed for Nausea and Vomiting (N/V). dicyclomine 2021-0 Yes [id number] 10mg Take 1 Univers 10 mg 1-26 capsule by ity of capsule 00:00: mouth 4 (four) Medical times Branch daily as needed for Abdominal pain. ondansetron 2021-0 Yes [id number] 4mg Take 1 Univers 4 mg 1-26 tablet by ity of disintegrat 00:00: mouth [place] ing tablet 00 every 12 Medic al (twelve) Branch hours as needed for Nausea and Vomiting (N/V). dicyclomine 2021-0 Yes [id number] 10mg Take 1 Univers 10 mg 1-26 capsule by ity of capsule 00:00: mouth 4 [place] 00 (four) Medical times Branch daily as needed for Abdominal pain. ondansetron 2021-0 Yes [id number] 4mg Take 1 Univers 4 mg 1-26 tablet by ity of disintegrat 00:00: mouth [place] ing tablet 00 every 12 Medic al (twelve) Branch hours as needed for Nausea and Vomiting (N/V). dicyclomine 2021-0 Yes [id number] 10mg Take 1 Univers 10 mg 1-26 capsule by ity of capsule 00:00: mouth 4 [place] 00 (four) Medical times Branch daily as needed for Abdominal pain. ondansetron 2021-0 Yes [id number] 4mg Take 1 Univers 4 mg 1-26 tablet by ity of disintegrat 00:00: mouth [place] ing tablet 00 every 12 Medic al (twelve) Branch hours as needed for Nausea and Vomiting (N/V). dicyclomine 2021- No [id number] 10mg Take 1 Univers 10 mg 1-26 04-22 capsule by ity of capsule 00:00: 00:00 mouth 4 [place] 00 :00 (four) Medical times Branch daily as needed for Abdominal pain. ondansetron 2021- No [id number] 4mg Take 1 Univers 4 mg 1-26 04-22 tablet by ity of disintegrat 00:00: 00:00 mouth [place] ing tablet 00 :00 every 12 Medic al (twelve) Branch hours as needed for Nausea and Vomiting (N/V). dicyclomine 2021- No [id number] 10mg Take 1 Univers 10 mg 1-26 04-22 capsule by ity of capsule 00:00: 00:00 mouth 4 [place] 00 :00 (four) Medical times Branch daily as needed for Abdominal pain. ondansetron 2021- No [id number] 4mg Take 1 Univers 4 mg 1-26 04-22 tablet by ity of disintegrat 00:00: 00:00 mouth [place] ing tablet 00 :00 every 12 Medic al (twelve) Branch hours as needed for Nausea and Vomiting (N/V). maalox:diph 2021- No 15mL 15 mL, Uni vers enhydrAMINE 08-05 Oral, ity of :lidocaine 10:00: 08:58 ONCE, 1 [place] 2 % viscous 00 :00 dose, On Medi carolyn 1:1:1 Tue Branch (FIRST-MOUT 08/05/21 at [facility]) 0400, oral Routine suspension 15 mL ondansetron 2021-0 2022- No 4mg 4 mg, Univ ers (ZOFRAN-ODT 1-11 -11 Oral, ity of ) 10:00: 08:58 ONCE, 1 [place] disintegrat 00 :00 dose, On Medi carolyn ing tablet Tue Branch 4 mg 08/05/21 at 0400, Routine ondansetron 2021-0 Yes [id number] 4mg Take 1 Univers (ZOFRAN 1-11 tablet by ity of ODT) 4 mg 00:00: mouth [place] disintegrat 00 every 8 Medic al ing tablet (eight) Branch hours as needed for Nausea and Vomiting (N/V). omeprazole 2021-0 Yes [id number] 40mg Take 1 U nivers 40 mg 1-11 capsule by ity of capsule 00:00: mouth [place] 00 daily. Medical Branch ondansetron 2021-0 Yes [id number] 4mg Take 1 Univers (ZOFRAN 1-11 tablet by ity of ODT) 4 mg 00:00: mouth [place] disintegrat 00 every 8 Medic al ing tablet (eight) Branch hours as needed for Nausea and Vomiting (N/V). omeprazole 2021-0 Yes [id number] 40mg Take 1 U nivers 40 mg 1-11 capsule by ity of capsule 00:00: mouth [place] 00 daily. Medical Branch ondansetron 2021-0 Yes [id number] 4mg Take 1 Univers (ZOFRAN 1-11 tablet by ity of ODT) 4 mg 00:00: mouth [place] disintegrat 00 every 8 Medic al ing tablet (eight) Branch hours as needed for Nausea and Vomiting (N/V). omeprazole 2021-0 Yes [id number] 40mg Take 1 U nivers 40 mg 1-11 capsule by ity of capsule 00:00: mouth [place] 00 daily. Medical Branch ondansetron 2021-0 Yes [id number] 4mg Take 1 Univers (ZOFRAN 1-11 tablet by ity of ODT) 4 mg 00:00: mouth [place] disintegrat 00 every 8 Medic al ing tablet (eight) Branch hours as needed for Nausea and Vomiting (N/V). omeprazole 2021-0 Yes [id number] 40mg Take 1 U nivers 40 mg 1-11 capsule by ity of capsule 00:00: mouth [place] 00 daily. Medical Branch ondansetron Yes [id number] 4mg Take 1 Univers (ZOFRAN 1-11 tablet by ity of ODT) 4 mg 00:00: mouth [place] disintegrat 00 every 8 Medic al ing tablet (eight) Branch hours as needed for Nausea and Vomiting (N/V). omeprazole Yes [id number] 40mg Take 1 U nivers 40 mg 1-11 capsule by ity of capsule 00:00: mouth [place] 00 daily. [facility] ondansetron 2021- No [id number] 4mg Take 1 Univers (ZOFRAN 1-11 -22 tablet by ity of ODT) 4 mg 00:00: 00:00 mouth [place] disintegrat 00 :00 every 8 Medic al ing tablet (eight) Branch hours as needed for Nausea and Vomiting (N/V). omeprazole 2021- No [id number] 40mg Take 1 Univers 40 mg -05 29-22 capsule by ity of capsule 00:00: 00:00 mouth [place] 00 :00 daily. [facility] ondansetron 2021- No [id number] 4mg Take 1 Univers (ZOFRAN 1-11 -22 tablet by ity of ODT) 4 mg 00:00: 00:00 mouth [place] disintegrat 00 :00 every 8 Medic al ing tablet (eight) Branch hours as needed for Nausea and Vomiting (N/V). omeprazole 2021- No [id number] 40mg Take 1 Univers 40 mg 08-05-22 capsule by ity of capsule 00:00: 00:00 mouth [place] 00 :00 daily. [facility] maalox:diph 2020- No 15mL 15 mL, Uni vers enhydrAMINE 11-04-12 Oral, ity of :lidocaine 02:30: 01:22 ONCE, 1 [place] 2 % viscous 00 :00 dose, Sun Med ical 1:1:1 11/03/20 at [place] (FIRST-MOUT 2129, [facility]) Routine oral suspension 15 mL maalox:diph 2020- No 15mL 15 mL, Uni vers enhydrAMINE 11-03- Oral, ity of :lidocaine 13:45: 14:21 ONCE, 1 [place] 2 % viscous 00 :00 dose, Sun Med ical 1:1:1 11/03/20 at [place] (FIRST-MOMS 08, [facility]) oral suspension 15 mL pantoprazol No 40mg 40 mg, Uni vers e 11-03 Oral, ity of (PROTONIX) 12:45: 11:40 ONCE, 1 [place] EC tablet 00 :00 dose, Sun Medic al 40 mg 11/03/20 at [place] 0745, [facility] maalox:diph No 15mL 15 mL, Uni vers enhydrAMINE 11-03 Oral, ity of :lidocaine 06:15: 06:20 ONCE, 1 [place] 2 % viscous 00 :00 dose, Sun Med ical 1:1:1 11/03/20 at [place] ([facility] 0130, [facility]) Routine oral suspension 15 mL alum-mag 2020- No 30mL 30 mL, Univer s hydroxide-s 11-03 Oral, ity of imeth 02:45: 01:36 ONCE, 1 [place] (MAALOX 00 :00 dose, Sat Medical PLUS / 11/02/20 at [facility] 2145, ANDRA PLUS) 200-200-20 mg/5 mL suspension 30 mL alum-mag 2020- No 30mL 30 mL, Univer s hydroxide-s 11-02 Oral, ity of imeth 16:45: 15:37 ONCE, 1 [place] (MAALOX 00 :00 dose, Sat Medical PLUS / 11/02/20 at [facility] 1145, ANDRA PLUS) 200-200-20 mg/5 mL suspension 30 mL ibuprofen No 600mg 600 mg, Uni vers (IBU) 11-02 Oral, ity of tablet 600 13:45: 12:45 ONCE, 1 [place] mg 00 :00 dose, Sat Medical 11/02/20 at [place] 0845, [facility] alum-mag 2020- No 30mL 30 mL, Univer s hydroxide-s 11-02 Oral, ity of imeth 03:15: 02:13 ONCE, 1 [place] (MAALOX 00 :00 dose, Fri Medical PLUS / 11/01/20 at [place] MAG-AL 2215, ANDRA PLUS) 200-200-20 mg/5 mL suspension 30 mL albuterol 2020-0 Yes [id number] 2{puff} Inhale 2 Univers sulfate 4-02 Puffs ity of (PROAIR 00:00: every 4 [place] RESPICLICK) 00 (four) Medica l 90 hours as Branch mcg/actuati needed on AePB (wheezing or SOB). azithromyci 2020-0 Yes [id number] 250mg Take 1 Univers n 250 mg 4-02 tablet by ity of tablet 00:00: mouth [place] 00 daily. Medical Take 500 Branch mg day 1, then 250 mg days 2 to 5. albuterol 2020-0 Yes [id number] 2{puff} Inhale 2 Univers sulfate 4-02 Puffs ity of (PROAIR 00:00: every 4 [place] RESPICLICK) 00 (four) Medica l 90 hours as Branch mcg/actuati needed on AePB (wheezing or SOB). azithromyci 2020-0 Yes [id number] 250mg Take 1 Univers n 250 mg 4-02 tablet by ity of tablet 00:00: mouth [place] 00 daily. Medical Take 500 Branch mg day 1, then 250 mg days 2 to 5. albuterol 2020-0 Yes [id number] 2{puff} Inhale 2 Univers sulfate 4-02 Puffs ity of (PROAIR 00:00: every 4 [place] RESPICLICK) 00 (four) Medica l 90 hours as Branch mcg/actuati needed on AePB (wheezing or SOB). azithromyci 2020-0 Yes [id number] 250mg Take 1 Univers n 250 mg 4-02 tablet by ity of tablet 00:00: mouth [place] 00 daily. Medical Take 500 Branch mg day 1, then 250 mg days 2 to 5. albuterol 2020-0 Yes [id number] 2{puff} Inhale 2 Univers sulfate 4-02 Puffs ity of (PROAIR 00:00: every 4 [place] RESPICLICK) 00 (four) Medica l 90 hours as Branch mcg/actuati needed on AePB (wheezing or SOB). azithromyci 2020-0 Yes [id number] 250mg Take 1 Univers n 250 mg 4-02 tablet by ity of tablet 00:00: mouth [place] 00 daily. Medical Take 500 Branch mg day 1, then 250 mg days 2 to 5. albuterol 2020-0 Yes [id number] 2{puff} Inhale 2 Univers sulfate 4-02 Puffs ity of (PROAIR 00:00: every 4 [place] RESPICLICK) 00 (four) Medica l 90 hours as Branch mcg/actuati needed on AePB (wheezing or SOB). azithromyci 2020-0 Yes [id number] 250mg Take 1 Univers n 250 mg 4-02 tablet by ity of tablet 00:00: mouth [place] 00 daily. Medical Take 500 Branch mg day 1, then 250 mg days 2 to 5. albuterol 2020-0 Yes [id number] 2{puff} Inhale 2 Univers sulfate 4-02 Puffs ity of (PROAIR 00:00: every 4 [place] RESPICLICK) 00 (four) Medica l 90 hours as Branch mcg/actuati needed on AePB (wheezing or SOB). azithromyci 2020-0 Yes [id number] 250mg Take 1 Univers n 250 mg 4-02 tablet by ity of tablet 00:00: mouth [place] 00 daily. Medical Take 500 Branch mg day 1, then 250 mg days 2 to 5. albuterol 2020-0 Yes [id number] 2{puff} Inhale 2 Univers sulfate 4-02 Puffs ity of (PROAIR 00:00: every 4 [place] RESPICLICK) 00 (four) Medica l 90 hours as Branch mcg/actuati needed on AePB (wheezing or SOB). azithromyci 2020-0 Yes [id number] 250mg Take 1 [facility] 250 mg 4-02 tablet by ity of tablet 00:00: mouth [place] 00 daily. Medical Take 500 Branch mg day 1, then 250 mg days 2 to 5. albuterol 2020-0 Yes [id number] 2{puff} Inhale 2 [facility] sulfate 4-02 Puffs ity of (PROAIR 00:00: every 4 [place] RESPICLICK) 00 (four) Medica l 90 hours as Branch mcg/actuati needed on AePB (wheezing or SOB). azithromyci 2020-0 Yes [id number] 250mg Take 1 [facility] 250 mg 4-02 tablet by ity of tablet 00:00: mouth [place] 00 daily. Medical Take 500 Branch mg day 1, then 250 mg days 2 to 5. albuterol 2020-0 Yes [id number] 2{puff} Inhale 2 [facility] sulfate 4-02 Puffs ity of (PROAIR 00:00: every 4 [place] RESPICLICK) 00 (four) Medica l 90 hours as Branch mcg/actuati needed on AePB (wheezing or SOB). azithromyci Yes [id number] 250mg Take 1 [facility] 250 mg 4-02 tablet by ity of tablet 00:00: mouth [place] 00 daily. Medical Take 500 Branch mg day 1, then 250 mg days 2 to 5. albuterol Yes [id number] 2{puff} Inhale 2 Univers sulfate 4-02 Puffs ity of (PROAIR 00:00: every 4 [place] RESPICLICK) 00 (four) Medica l 90 hours as Branch mcg/actuati needed on AePB (wheezing or SOB). azithromyci Yes [id number] 250mg Take 1 Univers n 250 mg 4-02 tablet by ity of tablet 00:00: mouth [place] 00 daily. Medical Take 500 Branch mg day 1, then 250 mg days 2 to 5. albuterol Yes [id number] 2{puff} Inhale 2 Univers sulfate 4-02 Puffs ity of (PROAIR 00:00: every 4 [place] RESPICLICK) 00 (four) Medica l 90 hours as Branch mcg/actuati needed on AePB (wheezing or SOB). azithromyci Yes [id number] 250mg Take 1 Univers n 250 mg 4-02 tablet by ity of tablet 00:00: mouth [place] 00 daily. Medical Take 500 Branch mg day 1, then 250 mg days 2 to 5. albuterol 2021- No [id number] 2{puff} Inhale 2 Univers sulfate 4-02 04-22 Puffs ity of (PROAIR 00:00: 00:00 every 4 [place] RESPICLICK) 00 :00 (four) Medica l 90 hours as Branch mcg/actuati needed on AePB (wheezing or SOB). azithromyci 2021- No [id number] 250mg Take 1 Univers n 250 mg 4-02 04-22 tablet by ity o f tablet 00:00: 00:00 mouth [place] 00 :00 daily. Medical Take 500 Branch mg day 1, then 250 mg days 2 to 5. albuterol 2021- No [id number] 2{puff} Inhale 2 Univers sulfate 10-25- Puffs ity of (PROAIR 00:00: 00:00 every 4 [place] RESPICLICK) 00 :00 (four) Medica l 90 hours as Branch mcg/actuati needed on AePB (wheezing or SOB). azithromyci 2021- No [id number] 250mg Take 1 Univers n 250 mg 10-25 tablet by ity o f tablet 00:00: 00:00 mouth [place] 00 :00 daily. Medical Take 500 Branch mg day 1, then 250 mg days 2 to 5. predniSONE Yes [id number] 60 mg on Univers 20 mg 4-05 day 1-7, ity of tablet 00:00: 40 mg day [place] 00 8-14, 20 Medical mg day Branch hydrOXYzine Yes [id number] 25mg Take 1 Univers 25 mg 4-05 tablet by ity of tablet 00:00: mouth [place] 00 every 6 Medical (six) Branch hours as needed for Itching. predniSONE Yes [id number] 60 mg on Univers 20 mg 4-05 day 1-7, ity of tablet 00:00: 40 mg day [place] 00 -, 20 Medical mg day Branch hydrOXYzine Yes [id number] 25mg Take 1 Univers 25 mg 4-05 tablet by ity of tablet 00:00: mouth [place] 00 every 6 Medical (six) Branch hours as needed for Itching. ondansetron Yes [id number] 4mg Take 1 Univers (ZOFRAN) 4 3-05 tablet by ity of mg tablet 00:00: mouth [place] 00 every 8 Medical (eight) Branch hours as needed for Nausea and Vomiting (N/V). ondansetron Yes [id number] 4mg Take 1 Univers (ZOFRAN) 4 3-05 tablet by ity of mg tablet 00:00: mouth [place] 00 every 8 Medical (eight) Branch hours as needed for Nausea and Vomiting (N/V). No known No No known Metho di medications 9-[address] [facility]:05: [facility] l doxycycline Yes 100mg Take 1 Uni vers 100 mg 2-18 capsule by ity of capsule 00:00: mouth 2 00 (two) Medical times [place] daily. doxycycline 2017-0 Yes 100mg Take 1 Uni vers 100 mg 2-18 capsule by ity of capsule 00:00: mouth 2 00 (two) Medical times [place] daily. Immunizations Ordered Filled Immunization Date Status Comments Sourc e Immunization Name Name TD Pres-Free 2022-08-15 Completed University o f 00:00:00 [facility] Td 2012-04-03 Completed University of 00:00:00 [facility] Td 2012-04-03 Completed University of 00:00:00 [facility] [place] [facility] Td 2012-04-03 Completed University of 00:00:00 [facility] Td 2012-04-03 Completed University of 00:00:00 [facility] Td 2012-04-03 Completed University of 00:00:00 [facility] Td 2012-04-03 Completed University of 00:00:00 [facility] Td 2012-04-03 Completed University of 00:00:00 [facility] Td 2012-04-03 Completed University of 00:00:00 [facility] Td 2012-04-03 Completed University of 00:00:00 [facility] Td 2012-04-03 Completed University of 00:00:00 [facility] Td 2012-04-03 Completed University of 00:00:00 [facility] Td 2012-04-03 Completed University of 00:00:00 [facility] Td 2012-04-03 Completed University of 00:00:00 [facility] Td 2012-04-03 Completed University of 00:00:00 [facility] Td 2012-04-03 Completed University of 00:00:00 [facility] Td 2012-04-03 Completed University of 00:00:00 [facility] TD, NOS 2012-04-03 Completed University of 00:00:00 [facility] Vital Signs Vital Name Observation Time Observation Value Comments Source Systolic blood 2022-08-15 21:10:00 136 mm[Hg] Univer sity of pressure [facility] Diastolic blood 2022-08-15 21:10:00 84 mm[Hg] Unive rsity of pressure [facility] Heart rate 2022-08-15 21:10:00 76 /min [facility] Body temperature 2022-08-15 21:10:00 37 Vanessa Univ ersity of [facility] Respiratory rate 2022-08-15 21:10:00 16 /min Univ ersity of [place] [facility] Body height 2022-08-15 21:10:00 177.8 cm Universi ty of [place] [facility] Body weight 2022-08-15 21:10:00 86.183 kg Universi ty of [place] [facility] BMI 2022-08-15 21:10:00 27.26 kg/m2 Universi ty of [place] [facility] Oxygen saturation in 2022-08-15 21:10:00 100 /min University of Arterial blood by [place] [employer]olyn Pulse oximetry Branch Systolic blood 2021-11-19 12:30:00 113 mm[Hg] Univer sity of pressure [facility] [place] [facility] Diastolic blood 2021-11-19 12:30:00 68 mm[Hg] Unive rsity of pressure [facility] [place] [facility] Heart rate 2021-11-19 12:30:00 90 /min Universi ty of [place] [facility] Body temperature 2021-11-19 12:30:00 36.61 Vanessa Univ ersity of [place] [facility] Oxygen saturation in 2021-11-19 12:30:00 98 /min University of Arterial blood by [place] [employer] Pulse oximetry Branch Respiratory rate 2021-11-19 04:53:00 20 /min Univ ersity of [place] [facility] Body weight 2021-11-10 05:00:00 80 kg Universi ty of [place] [facility] BMI 2021-11-10 05:00:00 25.31 kg/m2 Universi ty of [place] [facility] Body height 2021-11-08 03:45:00 177.8 cm Universi ty of [place] [facility] Systolic blood 2021-11-08 00:00:00 94 mm[Hg] Univer sity of pressure [place] [facility] Diastolic blood 2021-11-08 00:00:00 70 mm[Hg] Unive rsity of pressure [facility] [place] [facility] Heart rate 2021-11-08 00:00:00 137 /min Universi ty of [place] [facility] Body temperature 2021-11-08 00:00:00 36.78 Vanessa Univ ersity of [place] [facility] Respiratory rate 2021-11-08 00:00:00 28 /min Univ ersity of [place] [facility] Oxygen saturation in 2021-11-08 00:00:00 95 /min University of Arterial blood by [employer] carolyn Pulse oximetry Branch Body weight 2021-11-07 17:00:00 81 kg Universi ty of [facility] BMI 2021-11-07 17:00:00 25.31 kg/m2 Universi ty of [facility] Body height 2021-11-07 03:54:00 177.8 cm Universi ty of [facility] Heart rate 2021-08-26 16:29:00 68 /min Universi ty of [facility] Systolic blood 2021-08-26 15:35:00 133 mm[Hg] Univer sity of pressure [facility] Diastolic blood 2021-08-26 15:35:00 89 mm[Hg] Unive rsity of [facility] Body temperature 2021-08-26 15:35:00 36.94 Vanessa Univ ersity of [facility] Respiratory rate 2021-08-26 15:35:00 18 /min Univ ersity of [facility] Body height 2021-08-26 15:35:00 177.8 cm Universi ty of [facility] Body weight 2021-08-26 15:35:00 90.719 kg Universi ty of [place] [facility] BMI 2021-08-26 15:35:00 28.70 kg/m2 Universi ty of [facility] Oxygen saturation in 2021-08-26 15:35:00 99 /min University of Arterial blood by [place] [employer] Pulse oximetry Branch Heart rate 2021-08-20 23:02:13 96 /min Universi ty of [facility] Respiratory rate 2021-08-20 23:02:13 16 /min Univ ersity of [facility] Oxygen saturation in 2021-08-20 23:02:13 98 /min University of Arterial blood by [facility] carolyn Pulse oximetry Branch Systolic blood 2021-08-20 19:07:00 114 mm[Hg] Univer sity of [facility] Branch Diastolic blood 2021-08-20 19:07:00 67 mm[Hg] Unive rsity of [facility] Body temperature 2021-08-20 19:07:00 37.17 Vanessa Univ ersity of [facility] Body height 2021-08-20 19:07:00 177.8 cm Universi ty of [facility] Body weight 2021-08-20 19:07:00 88.451 kg Universi ty of [facility] BMI 2021-08-20 19:07:00 27.98 kg/m2 Universi ty of [place] [facility] Systolic blood 2021-08-05 08:45:00 196 mm[Hg] Univer sity of pressure [place] [facility] Diastolic blood 2021-08-05 08:45:00 91 mm[Hg] Unive rsity of pressure [place] [facility] Heart rate 2021-08-05 08:45:00 104 /min Universi ty of [place] [facility] Body temperature 2021-08-05 08:45:00 36.94 Vanessa Univ ersity of [place] [facility] Respiratory rate 2021-08-05 08:45:00 20 /min Univ ersity of [place] [facility] Body height 2021-08-05 08:45:00 177.8 cm Universi ty of [place] [facility] Oxygen saturation in 2021-08-05 08:45:00 100 /min University of Arterial blood by [place] [employer] Pulse oximetry Branch Body weight 2021-08-05 08:43:00 88.451 kg Universi ty of [place] [facility] BMI 2021-08-05 08:43:00 27.98 kg/m2 Universi ty of [place] [facility] Systolic blood 2020-11-04 00:53:00 110 mm[Hg] Univer sity of pressure [place] [facility] Diastolic blood 2020-11-04 00:53:00 52 mm[Hg] Unive rsity of pressure [place] [facility] Heart rate 2020-11-04 00:53:00 56 /min Universi ty of [place] [facility] Body temperature 2020-11-04 00:53:00 36.72 Vanessa Univ ersity of [place] [facility] Respiratory rate 2020-11-04 00:53:00 16 /min Univ ersity of [place] [facility] Oxygen saturation in 2020-11-04 00:53:00 98 /min University of Arterial blood by [place] [employer] Pulse oximetry Branch Body height 2020-11-01 22:42:00 177.8 cm Universi ty of [place] [facility] Body weight 2020-11-01 22:42:00 83.915 kg Universi ty of [place] [facility] BMI 2020-11-01 22:42:00 26.54 kg/m2 Universi ty of [place] [facility] Systolic blood 2020-11-04 00:53:00 110 mm[Hg] Univer sity of pressure [place] [facility] Diastolic blood 2020-11-04 00:53:00 52 mm[Hg] Unive rsity of pressure [facility] [place] [facility] Heart rate 2020-11-04 00:53:00 56 /min Universi ty of [place] [facility] Body temperature 2020-11-04 00:53:00 36.72 Vanessa Univ ersity of [place] [facility] Respiratory rate 2020-11-04 00:53:00 16 /min Univ ersity of [place] [facility] Oxygen saturation in 2020-11-04 00:53:00 98 /min University of Arterial blood by [facility] Pulse oximetry Branch Body height 2020-11-01 22:42:00 177.8 cm Universi ty of [place] [facility] Body weight 2020-11-01 22:42:00 83.915 kg Universi ty of [place] [facility] BMI 2020-11-01 22:42:00 26.54 kg/m2 Universi ty of [place] [facility] Systolic blood 2019-10-26 20:13:00 106 mm[Hg] Univer sity of pressure [place] [facility] Diastolic blood 2019-10-26 20:13:00 71 mm[Hg] Unive rsity of pressure [facility] [place] [facility] Heart rate 2019-10-26 20:13:00 97 /min Universi ty of [place] [facility] Body temperature 2019-10-26 20:13:00 37.17 Vanessa Univ ersity of [place] [facility] Respiratory rate 2019-10-26 20:13:00 18 /min Univ ersity of [place] [facility] Body height 2019-10-26 20:13:00 180.3 cm Universi ty of [place] [facility] Body weight 2019-10-26 20:13:00 92.987 kg Universi ty of [place] [facility] BMI 2019-10-26 20:13:00 28.59 kg/m2 Universi ty of [place] [facility] Oxygen saturation in 2019-10-26 20:13:00 97 /min University of Arterial blood by [facility] Pulse oximetry Branch Systolic blood 2019-10-26 20:13:00 106 mm[Hg] Univer sity of pressure [facility] [place] [facility] Diastolic blood 2019-10-26 20:13:00 71 mm[Hg] Unive rsity of pressure [place] [facility] Heart rate 2019-10-26 20:13:00 97 /min Universi ty of [place] [facility] Body temperature 2019-10-26 20:13:00 37.17 Vanessa [facility] Respiratory rate 2019-10-26 20:13:00 18 /min [facility] height 2019-10-26 20:13:00 180.3 cm Universi ty of [place] [facility] [place] Body weight 2019-10-26 20:13:00 92.987 kg Universi ty [facility] BMI 2019-10-26 20:13:00 28.59 kg/m2 Universi [facility] Oxygen saturation in 2019-10-26 20:13:00 97 /min University of Arterial blood by [facility] Pulse oximetry Branch Systolic blood 2021-11-15 19:51:00 133 mm[Hg] Univer sity of pressure [facility] Diastolic blood 2021-11-15 19:51:00 89 mm[Hg] Unive [facility] Heart rate 2021-11-15 19:51:00 93 /min Universi [facility] Body temperature 2021-11-15 19:51:00 37.28 Vanessa [facility] Respiratory rate 2021-11-15 19:51:00 18 /min [facility] Oxygen saturation in 2021-11-15 19:51:00 97 /min University of Arterial blood by [facility] Pulse oximetry Branch Body weight 2021-11-10 05:00:00 80 kg [facility] BMI 2021-11-10 05:00:00 25.31 kg/m2 [facility] Body height 2021-11-08 03:45:00 177.8 cm [facility] Procedures Procedure Date / Time Performing Clinician Source Performed MS INCISION & DRAINAGE 2022-08-15 21:37:39 Janeth Mcneill [facility] ABSCESS SIMPLE/SINGLE Medical Br anch CONSENT/REFUSAL FOR 2022-08-15 21:02:49 Doctor [facility]igned, [facility]REATMENT [facility] Branch BASIC METABOLIC PANEL (NA, 2021-11-19 10:08:00 Wqaar Ayala [facility] K, CL, CO2, GLUCOSE, BUN, [facility] Medica l Branch CREATININE, [place]) CBC WITH DIFF 2021-11-19 10:08:00 Juve Thornton, [facility] BASIC METABOLIC PANEL (NA, 2021-11-18 09:52:00 [facility]ve [facility] [place] K, CL, CO2, GLUCOSE, BUN, [facility] Medica [facility] Branch CREATININE, [place]) CBC WITH DIFF 2021-11-18 09:52:00 Juve Thornton [facility] BASIC METABOLIC PANEL (NA, 2021-11-17 09:55:00 Juve Thornton [facility] [place] K, CL, CO2, GLUCOSE, BUN, [facility] Branch CREATININE, CA) CBC WITH DIFF 2021-11-17 09:55:00 Juve Thornton [facility] XR KUB 2021-11-17 07:02:00 Noe [place] [facility] CBC WITH DIFF 2021-11-16 11:34:00 Juve Thornton [facility] CBC WITH DIFF 2021-11-16 11:34:00 Juve Thornton [facility] BASIC METABOLIC PANEL (NA, 2021-11-16 11:13:00 Juve Thornton [facility] [place] K, CL, CO2, GLUCOSE, BUN, [facility] Medica l Branch CREATININE, CA) MAGNESIUM 2021-11-16 11:13:00 Juve Thornton [facility] PHOSPHORUS 2021-11-16 11:13:00 Juve Thornton [facility] PHOSPHORUS 2021-11-16 11:13:00 Juve Thornton [facility] MAGNESIUM 2021-11-16 11:13:00 Juve Thornton [facility] BASIC METABOLIC PANEL (NA, 2021-11-16 11:13:00 Juve Thornton [facility] [place] K, CL, CO2, GLUCOSE, BUN, [facility] Medica l Branch CREATININE, CA) XR CHEST 1 VW 2021-11-15 08:40:00 Juve Thornton [facility] XR CHEST 1 VW 2021-11-15 08:40:00 Juve Thornton [facility] CBC WITH DIFF 2021-11-15 06:17:00 Juve Thornton [facility] BASIC METABOLIC PANEL (NA, 2021-11-15 06:17:00 Waqar Ayala [facility] K, CL, CO2, GLUCOSE, BUN, [facility] Medica l Branch CREATININE, CA) MAGNESIUM 2021-11-15 06:17:00 Juve Thornton [facility] PHOSPHORUS 2021-11-15 06:17:00 Juve Thornton [facility] PHOSPHORUS 2021-11-15 06:17:00 Juve Thornton [facility] MAGNESIUM 2021-11-15 06:17:00 Juve Thornton [facility] BASIC METABOLIC PANEL (NA, 2021-11-15 06:17:00 Waqar Ayala [facility] K, CL, CO2, GLUCOSE, BUN, [facility] CREATININE, CA) CBC WITH DIFF 2021-11-15 06:17:00 Juve Thornton [facility] XR CHEST 1 VW 2021-11-14 23:30:00 Maldonado [facility] XR CHEST 1 VW 2021-11-14 23:30:00 Maldonado [facility] IR DRAINAGE BY CATHETER 2021-11-14 22:39:26 Teo Conteh [facility] PERITONEAL OR Medical Branch RETROPERITONEAL GLUCOSE BODY FLUID 2021-11-14 22:21:00 Teo Conteh [facility] BODY FLUID MANUAL DIFF 2021-11-14 22:21:00 Teo Conteh [facility] T.PROTEIN BODY FLUID 2021-11-14 22:21:00 Teo Conteh [facility] ASPIRATE OR ABSCESS 2021-11-14 22:21:00 [facility]EROB[facility] Medic al Branch LDH TOTAL BODY FLUID 2021-11-14 22:21:00 [facility] GLUCOSE BODY FLUID 2021-11-14 22:21[facility]00 [facility] FLUID 2021-11-14 22:21:00 Teo Conteh [facility] BODY FLUID DIRECT COUNT 2021-11-14 22:21:00 [facility] ABSCESS 2021-11-14 22:21:00 Teo Conteh [facility] CULTURE(AEROBIC/ANAEROBIC) [facility] Branch LDH TOTAL BODY FLUID 2021-11-14 22:21:00 Teo Conteh [facility] BASIC METABOLIC PANEL (NA, 2021-11-14 20:07:00 Vu, Teo U [facility] K, CL, CO2, GLUCOSE, BUN, Medica l Branch CREATININE, CA) PROTHROMBIN TIME / INR 2021-11-14 20:07:00 Teo Conteh [facility] BASIC METABOLIC PANEL (NA, 2021-11-14 20:07:00 Vu, Teo U [facility] K, CL, CO2, GLUCOSE, BUN, Medica l Branch CREATININE, CA) PROTHROMBIN TIME / INR 2021-11-14 20:07:00 Wero, Teo [facility] CT ABDOMEN PELVIS W 2021-11-14 19:27:[address] [facility] [address] ABDOMEN PELVIS W 2021-11-14 19:27:00 [facility] HB ECG ROUTINE & RHYTHM 2021-11-14 14:21:48 Gail Funes [facility] CBC WITH DIFF 2021-11-14 11:16[facility] (NA, 2021-11-14 11:16:00 Waqar Ayala [facility] K, CL, CO2, GLUCOSE, BUN, [facility] Medica l Branch CREATININE, CA) MAGNESIUM 2021-11-14 11:16:00 Juve Thornton [facility] [facility] PHOSPHORUS 2021-11-14 11:16:00 Juve Thornton [facility] PHOSPHORUS 2021-11-14 11:16:00 Juve Thornton [facility] MAGNESIUM 2021-11-14 11:16:[facility] (NA, 2021-11-14 11:16:00 [facility], CO2, GLUCOSE, BUN, [facility] Medica l Branch CREATININE, CA) CBC WITH DIFF 2021-11-14 11:16:00 [facility] 2021-11-13 14:13:00 Amador [facility] URINE CULTURE 2021-11-13 14:13:00 Amador [facility] URINALYSIS 2021-11-13 14:13:00 Am[facility] URINE CULTURE 2021-11-13 14:13:00 Clary English [facility] XR CHEST 1 2021-11-13 08:27:00 Gail Funes [facility] XR CHEST 1 2021-11-13 08:27:00 Gail Funes [facility] UPPER GI SERIES 2021-11-12 20:40:00 [facility] UPPER GI SERIES 2021-11-12 20:40:00 [facility] CBC WITH DIFF 2021-11-12 09:42:00 [facility] PANEL (NA, 2021-11-12 09:42:00 [facility] [place] [facility], CL, CO2, GLUCOSE, BUN, [facility] Medica l Branch CREATININE, CA) MAGNESIUM 2021-11-12 09:42:00 Juve Thornton [facility] PHOSPHORUS 2021-11-12 09:42:00 Juve Thornton [facility] PHOSPHORUS 2021-11-12 09:42:00 Juve Thornton [facility] MAGNESIUM 2021-11-12 09:42:00 Juve Thornton [facility] BASIC METABOLIC PANEL (NA, 2021-11-12 09:42:00 Juve Thornton [facility] [place] K, CL, CO2, GLUCOSE, BUN, [facility] CREATININE, CA) CBC WITH DIFF 2021-11-12 09:42:00 Juve Thornton [facility] CBC WITH DIFF 2021-11-11 13:13:00 Juve Thornton [facility] BASIC METABOLIC PANEL (NA, 2021-11-11 13:13:00 Juve Thornton [facility] [place] K, CL, CO2, GLUCOSE, BUN, [facility] Medica [facility] Branch CREATININE, CA) MAGNESIUM 2021-11-11 13:13:00 Juve Thornton [facility] PHOSPHORUS 2021-11-11 13:13:00 Juve Thornton [facility] PHOSPHORUS 2021-11-11 13:13:00 Juve Thornton [facility] MAGNESIUM 2021-11-11 13:13:00 Juve Thornton [facility] BASIC METABOLIC PANEL (NA, 2021-11-11 13:13:00 Juve Thornton [facility] [place] K, CL, CO2, GLUCOSE, BUN, [facility] Medica [facility] Branch CREATININE, CA) CBC WITH DIFF 2021-11-11 13:13:00 Juve Thornton [facility] PHOSPHORUS 2021-11-10 09:24:00 Juve Thornton [facility] MAGNESIUM 2021-11-10 09:24:00 Juve Thornton [facility] BASIC METABOLIC PANEL (NA, 2021-11-10 09:24:00 Juve Thornton [facility] [place] K, CL, CO2, GLUCOSE, BUN, [facility] Medica [facility] Branch CREATININE, CA) CBC WITH DIFF 2021-11-10 09:24:00 Juve Thornton [facility] CBC WITH DIFF 2021-11-10 09:24:[facility] (NA, 2021-11-10 09:24:00 Juve Thornton, [facility] [place] K, CL, CO2, GLUCOSE, BUN, [facility]ica [facility] Branch CREATININE, CA) MAGNESIUM 2021-11-10 09:24:[facility] 2021-11-10 09:24[facility] 2021-11-10 09:24[facility] 2021-11-10 09:24[facility] PANEL (NA, 2021-11-10 09:24:00 Juve Thornton [facility] [place] K, CL, CO2, GLUCOSE, BUN, [facility]ica [facility] Branch CREATININE, CA) CBC WITH DIFF 2021-11-10 09:24:00 [facility] 2021-11-09 09:15:00 [facility] 2021-11-09 09:15:00 [facility] BASIC METABOLIC PANEL (NA, 2021-11-09 09:15:00 Dejan [facility] [place] K, CL, CO2, GLUCOSE, BUN, Medica l Branch CREATININE, CA) CBC WITH DIFF 2021-11-09 09:15:00 Jose Simpsonhil [facility] CBC WITH DIFF 2021-11-09 09:15:00 [facility] BASIC METABOLIC PANEL (NA, 2021-11-09 09:15:00 Dejan Simpson [facility] [place] K, CL, CO2, GLUCOSE, BUN, Medica l Branch CREATININE, CA) MAGNESIUM 2021-11-09 09:15:00 [facility] 2021-11-09 09:15:00 Jose Simpsonhil [facility] PHOSPHORUS 2021-11-09 09:15:00 [facility] 2021-11-09 09:15:00 [facility]IC PANEL (NA, 2021-11-09 09:15:00 Dejan Simpson [facility] K, CL, CO2, GLUCOSE, BUN, Medica l Branch CREATININE, CA) CBC WITH DIFF 2021-11-09 09:15:00 [facility] AC PANEL 20 + LACTIC ACID 2021-11-08 19:14:00 Dejan Simpson [facility] AC PANEL 20 + LACTIC ACID 2021-11-08 19:14:00 Dejan Simpson [facility] AC PANEL 20 + LACTIC ACID 2021-11-08 19:14:00 Dejan Simpson [facility] AC PANEL 20 + LACTIC ACID 2021-11-08 16:31:00 Teo Mclain [facility] AC PANEL 20 + LACTIC ACID 2021-11-08 16:31:00 Teo Mclain [facility] AC PANEL 20 + LACTIC ACID 2021-11-08 16:31:00 Teo Mclain [facility] AC PANEL 20 + LACTIC ACID 2021-11-08 12:49:00 Teo Mclain [facility] AC PANEL 20 + LACTIC ACID 2021-11-08 12:49:00 Teo Mclain [facility] AC PANEL 20 + LACTIC ACID 2021-11-08 12:49:00 Teo Mclain [facility] XR CHEST 1 2021-11-08 08:40:00 Teo Mclain [facility] XR CHEST 1 2021-11-08 08:40:00 Teo Mclain [facility] XR CHEST 1 2021-11-08 08:40:00 Teo Mclain [facility] PHOSPHORUS 2021-11-08 08:25:00 Teo Mclain [facility] MAGNESIUM 2021-11-08 08:25:00 Teo Mclain [facility] BILI UNCONJUGATED/BILI 2021-11-08 08:25:00 Teo Mclain [facility] BASIC METABOLIC PANEL (NA, 2021-11-08 08:25:00 Vu, [facility] K, CL, CO2, GLUCOSE, BUN, Medica l Branch CREATININE, CA) CBC WITH DIFF 2021-11-08 08:25:00 Teo Mclain [facility] PROTHROMBIN TIME / INR 2021-11-08 08:25:00 Teo Mclain [facility] AC PANEL 20 + LACTIC ACID 2021-11-08 08:25:00 Teo Mclain [facility] CBC WITH DIFF 2021-11-08 08:25:00 Teo Mclain [facility] MAGNESIUM 2021-11-08 08:25:00 Teo Mclain [facility] PHOSPHORUS 2021-11-08 08:25:00 Teo Mclain [facility] PROTHROMBIN TIME / INR 2021-11-08 08:25:00 Teo Mclain [facility] BILI UNCONJUGATED/BILI 2021-11-08 08:25:00 Teo Mclain [facility] AC PANEL 20 + LACTIC ACID 2021-11-08 08:25:00 Teo Mclain [facility] GASTRIN 2021-11-08 08:25:00 Teo Mclain [facility] BASIC METABOLIC PANEL (NA, 2021-11-08 08:25:[facility], [facility], CO2, GLUCOSE, BUN, Medica l Branch CREATININE, CA) GASTRIN 2021-11-08 08:25:00 Teo Mclain [facility] PHOSPHORUS 2021-11-08 08:25:00 Teo Mclain [facility] MAGNESIUM 2021-11-08 08:25:00 Teo Mclain [facility] BILI UNCONJUGATED/BILI 2021-11-08 08:25:00 Teo Mclain [facility] BASIC METABOLIC PANEL (NA, 2021-11-08 08:25:00 Teo Conteh [facility] K, CL, CO2, GLUCOSE, BUN, Medica l Branch CREATININE, CA) CBC WITH DIFF 2021-11-08 08:25:00 Teo Mclain [facility] PROTHROMBIN TIME / INR 2021-11-08 08:25:00 Teo Mclain [facility] AC PANEL 20 + LACTIC ACID 2021-11-08 08:25:00 Teo Mclain [facility] SURGICAL PATHOLOGY EXAM 2021-11-08 08:03:00 Carlos Dunn [facility] SURGICAL PATHOLOGY EXAM 2021-11-08 08:03:00 Carlos Dunn [facility] ABG+COOX+NA+K+GLU+CA2+ 2021-11-08 07:31:00 Gene Rushing [facility] ABG+COOX+NA+K+GLU+CA2+ 2021-11-08 07:31:00 [facility]G+COOX+NA+K+GLU+CA2+ 2021-11-08 06:41:00 [facility] ABG+COOX+NA+K+GLU+CA2+ 2021-11-08 06:41:00 Gene Rushing [facility] ARTERIAL LINE 2021-11-08 06:34:01 Carlos [facility] o f [facility] FUNGUS (ROUTINE) CULTURE 2021-11-08 06:30:00 Carlos Dunn [facility] BODY FLUID 2021-11-08 06:30:00 Carlos Dunn [facility] CULTURE(AEROBIC/ANAEROBIC) [facility] [employer] CULTURE 2021-11-08 06:30:00 Carlos Dunn [facility] BODY FLUID 2021-11-08 06:30:00 Carlos Dunn [facility] CULTURE(AEROBIC/ANAEROBIC) [facility] FUNGUS (ROUTINE) CULTURE 2021-11-08 06:30:00 Carlos Dunn [facility] [employer] CULTURE 2021-11-08 06:30:00 Pranav [facility] BODY FLUID 2021-11-08 06:30:00 Pranav [facility] CULTURE(AEROBIC/ANAEROBIC) [facility] FUNGUS (ROUTINE) CULTURE 2021-11-08 06:30:00 Carlos Dunn [facility] INTUBATION 2021-11-08 06:05:00 Carlos [facility] EXPLORATORY LAPAROTOMY 2021-11-08 05:40:00 Carlos Dunn [facility] EXPLORATORY LAPAROTOMY 2021-11-08 05:40:00 Carlos Dunn [facility] EXPLORATORY LAPAROTOMY 2021-11-08 05:40:00 Carlos Dunn [facility] HB ABO GROUPING 2021-11-08 04:40:00 Vu, [facility] HB ABO GROUPING 2021-11-08 04:40:00 Vu, [facility] HB ABO GROUPING 2021-11-08 04:40:00 Vu, [facility] COVID-19 (ID NOW RAPID 2021-11-08 03:55:00 Vu, [facility] TESTING) Medical Branch LAB ONLY COVID 2021-11-08 03:55:00 Vu, [facility] COVID-19 (ID NOW RAPID 2021-11-08 03:55:00 Vu, [facility] TESTING) Medical Branch LAB ONLY COVID 2021-11-08 03:55:00 Vu, [facility] COVID-19 (ID NOW RAPID 2021-11-08 03:55:00 Vu, [facility] TESTING) Medical Branch LAB ONLY COVID 2021-11-08 03:55:00 Vu, [facility] CT ABDOMEN PELVIS WO 2021-11-07 23:18:00 Aleida Nath [facility] CONTRAST [facility] Branch CT ABDOMEN PELVIS WO 2021-11-07 23:18:00 Aleida Nath [facility] CT ABDOMEN PELVIS WO 2021-11-07 23:18:00 Aelida Nath [facility] XR ABDOMEN 1 VW 2021-11-07 22:25:00 Aleida Nath [facility] XR ABDOMEN 1 2021-11-07 22:25:00 Aleida Nath [facility] XR ABDOMEN 1 VW 2021-11-07 22:25:00 Aleida Nath [facility] CBC WITH DIFF 2021-11-07 20:35:00 [place] [facility] CBC WITH DIFF 2021-11-07 20:35:00 [place], [facility] CBC WITH DIFF 2021-11-07 20:35:00 [place], [facility] LACTIC ACID WHOLE BLOOD 2021-11-07 20:34:00 Aleida Nath [facility] LACTIC ACID WHOLE BLOOD 2021-11-07 20:34:00 Aleida Nath [facility] LACTIC ACID WHOLE BLOOD 2021-11-07 20:34:00 Aleida Nath [facility] MRSA / MSSA SCREEN BY PCR, 2021-11-07 09:50:00 Carrie Rueda [facility] MRSA / MSSA SCREEN BY PCR, 2021-11-07 09:50:00 Carrie Rueda [facility] MRSA / MSSA SCREEN BY PCR, 2021-11-07 09:50:00 Carrie Rueda [facility] PHOSPHORUS 2021-11-07 09:49:00 Carrie Rueda [facility] AMYLASE 2021-11-07 09:49:00 Carrie Rueda [facility] LIPASE 2021-11-07 09:49:00 Carrie Rueda [facility] MAGNESIUM 2021-11-07 09:49:00 Carrie Rueda [facility] THYROID STIMULATING 2021-11-07 09:49:00 Carrie Rueda [facility] HORMONE [facility] COMP. METABOLIC PANEL 2021-11-07 09:49:00 Carrie Rueda [facility] ([id number]) Medical Branch LIPID PANEL ([id number])(TOTAL 2021-11-07 09:49:00 [facility] CHOLESTEROL, Medical Branch TRIGLYCERIDES, HDL) CBC WITH DIFF 2021-11-07 09:49:00 Marybeth traci [facility] PROTHROMBIN TIME / INR 2021-11-07 09:49:00 Carrie Rueda [facility] N-TERMINAL PRO-BNP 2021-11-07 09:49:00 Carrie Rueda [facility] PROCALCITONIN 2021-11-07 09:49:00 Marybeth rtaci [facility] PHOSPHORUS 2021-11-07 09:49:00 Marybeth traci [facility] THYROID STIMULATING 2021-11-07 09:49:00 Carrie Rueda [facility] LIPID PANEL (24256)(TOTAL 2021-11-07 09:49:00 Carrie Rueda [facility] CHOLESTEROL, [facility] TRIGLYCERIDES, HDL) AMYLASE 2021-11-07 09:49:00 Marybeth traci [facility] PROTHROMBIN TIME / INR 2021-11-07 09:49:00 [facility] CBC WITH DIFF 2021-11-07 09:49:00 Carrie Rueda [facility] COMP. METABOLIC PANEL 2021-11-07 09:49:00 Carrie Rueda [facility] ([id number]) [facility] Branch N-TERMINAL PRO-BNP 2021-11-07 09:49:00 Carrie Rueda [facility] MAGNESIUM 2021-11-07 09:49:00 Marybeth traci [facility] LIPASE 2021-11-07 09:49:00 Marybeth traci [facility] PROCALCITONIN 2021-11-07 09:49:00 Marybeth, Adnan [facility] PHOSPHORUS 2021-11-07 09:49:00 Marybeth traci [facility] AMYLASE 2021-11-07 09:49:00 Marybeth traci [facility] LIPASE 2021-11-07 09:49:00 Marybeth traci [facility] MAGNESIUM 2021-11-07 09:49:00 Marybeth traci [facility] THYROID STIMULATING 2021-11-07 09:49:00 Carrie Rueda [facility] HORMONE [facility] COMP. METABOLIC PANEL 2021-11-07 09:49:00 Carrie Rueda [facility] ([id number]) [facility] LIPID PANEL (16997)(TOTAL 2021-11-07 09:49:00 Carrie Rueda [facility] CHOLESTEROL, [facility] TRIGLYCERIDES, HDL) CBC WITH DIFF 2021-11-07 09:49:00 Carrie Rueda [facility] PROTHROMBIN TIME / INR 2021-11-07 09:49:00 Carrie Rueda [facility] N-TERMINAL PRO-BNP 2021-11-07 09:49:00 Carrie Rueda [facility] PROCALCITONIN 2021-11-07 09:49:00 Marybeth traci [facility] LACTIC ACID WHOLE BLOOD 2021-11-07 08:41:00 Carrie Rueda [facility] AC VBG + LACTIC ACID 2021-11-07 08:41:00 [facility] AC VBG + LACTIC ACID 2021-11-07 08:41:00 Carrie [facility] LACTIC ACID WHOLE BLOOD 2021-11-07 08:41:00 Carrie Rueda [facility] LACTIC ACID WHOLE BLOOD 2021-11-07 08:41:00 Carrie Rueda [facility] AC VBG + LACTIC ACID 2021-11-07 08:41:00 Carrie [facility] HB ECG ROUTINE & RHYTHM 2021-11-07 05:57:20 Carrie Rueda [facility] HB ECG ROUTINE & RHYTHM 2021-11-07 05:57:20 Carrie Rueda [facility] ROUTINE & RHYTHM 2021-11-07 05:57:20 Carrie Rueda [facility] URINE DRUG (IMMUNOASSAY) - 2021-11-07 05:41:00 Carrie Rueda [facility] COMPREHENSIVE DRUG SCREEN Medica l Branch LACTIC ACID WHOLE BLOOD 2021-11-07 05:41:00 Jl Valdes [facility] LACTIC ACID WHOLE BLOOD 2021-11-07 05:41:00 [facility]l [facility] (IMMUNOASSAY) - 2021-11-07 05:41:00 Carrie Rueda [facility] COMPREHENSIVE DRUG SCREEN Medica l Branch GALV ONLY - URINE DRUG 2021-11-07 05:41:00 Carrie Rueda [facility] - MYRTLE PANEL Medical Br anch GALV ONLY - URINE DRUG 2021-11-07 05:41:00 Carrie Rueda [facility] ([employer]) - MDMA PANEL Medical Br anch URINE DRUG (IMMUNOASSAY) - 2021-11-07 05:41:00 Carrie Rueda [facility] COMPREHENSIVE DRUG SCREEN Medica l Branch LACTIC ACID WHOLE BLOOD 2021-11-07 05:41:00 Jl Valdes [facility] GALV ONLY - URINE DRUG 2021-11-07 05:41:00 [facility] ([employer]) - MYRTLE PANEL Medical Br anch GALV ONLY - URINE DRUG 2021-11-07 05:41:00 [facility] ([employer]) - MDMA PANEL Medical Br anch SEDIMENTATION RATE 2021-11-07 05:40:00 Carrie Rueda [facility] SEDIMENTATION RATE 2021-11-07 05:40:00 Carrie Rueda [facility] SEDIMENTATION RATE 2021-11-07 05:40:00 [facility] 2021-11-07 03:53:00 Jl Valdes [facility] URINE CULTURE 2021-11-07 03:53:00 Jl Valdes [facility] URINALYSIS 2021-11-07 03:53:00 Jl Valdes [facility] URINE CULTURE 2021-11-07 03:53:00 Jl Valdes [facility] URINALYSIS 2021-11-07 03:53:00 Jl Valdes [facility] URINE CULTURE 2021-11-07 03:53:00 Jl Valdes [facility] BLOOD CULTURE SCREEN 2021-11-07 02:45:00 Jl Valdes [facility] BLOOD CULTURE SCREEN 2021-11-07 02:45:00 Jl Valdes [facility] BLOOD CULTURE SCREEN 2021-11-07 02:45:00 Jl Valdes [facility] LACTIC ACID WHOLE BLOOD 2021-11-07 02:44:00 Jl Valdes [facility] LACTIC ACID WHOLE BLOOD 2021-11-07 02:44:00 Jl Valdes [facility] LACTIC ACID WHOLE BLOOD 2021-11-07 02:44:00 Jl Valdes Uni [facility] US ABDOMEN LIMITED 2021-11-07 02:07:34 Jl Valdes [facility] US ABDOMEN LIMITED 2021-11-07 02:07:34 Jl Valdes [facility] US ABDOMEN LIMITED 2021-11-07 02:07:34 Jl Valdes [facility] CT ABDOMEN PELVIS W 2021-11-07 00:33:18 Jl Valdes [facility] CONTRAST [facility] CT ABDOMEN PELVIS W 2021-11-07 00:33:18 Jl Valdes [facility] CT ABDOMEN PELVIS W 2021-11-07 00:33:18 Jl Valdes [facility] CONTRAST Medical Branch LIPASE 2021-11-07 00:15:00 Jl Valdes [facility] COMP. METABOLIC PANEL 2021-11-07 00:15:00 Jl Valdes [facility] ([id number]) Medical Branch DIFF CONSULT 2021-11-07 00:15:00 Carrie Rueda [facility] INTERPRETATION Medical Branch CBC WITH DIFF 2021-11-07 00:15:00 Jl Valdes [facility] GLYCOSYLATED HEMOGLOBIN 2021-11-07 00:15:00 Carrie Rueda [facility] ([facility]) Medical Branch CBC WITH DIFF 2021-11-07 00:15:00 Jl Valdes [facility] COMP. METABOLIC PANEL 2021-11-07 00:15:00 Jl Valdes [facility] ([id number]) Medical Branch LIPASE 2021-11-07 00:15:00 Jl Valdes [facility] GLYCOSYLATED HEMOGLOBIN 2021-11-07 00:15:00 Carrie Rueda [facility] ([facility]) Medical Branch DIFF CONSULT 2021-11-07 00:15:00 Carrie Rueda [facility] INTERPRETATION Medical Branch LIPASE 2021-11-07 00:15:00 Jl Valdes [facility] COMP. METABOLIC PANEL 2021-11-07 00:15:00 Jl Valdes [facility] ([id number]) Medical Branch DIFF CONSULT 2021-11-07 00:15:00 Carrie Rueda [facility] INTERPRETATION [facility] Branch CBC WITH DIFF 2021-11-07 00:15:00 Jl Valdes [facility] GLYCOSYLATED HEMOGLOBIN 2021-11-07 00:15:00 Carire Rueda [facility] ([id number]) Medical Branch HOSPITAL ADMISSION 2021-11-06 05:01:00 Doctor Unassigned, [facility] [place] [facility] EMERGENCY DEPARTMENT 2021-11-06 05:01:00 Doctor Unassigned, [facility] DOCUMENTS [place] [facility] HOSPITAL ADMISSION 2021-11-06 05:01:00 Doctor Unassigned, [facility] [place] [facility] EMERGENCY DEPARTMENT 2021-11-06 05:01:00 Doctor Unassigned, [facility] DOCUMENTS [place] [facility] HOSPITAL ADMISSION 2021-11-06 05:01:00 Doctor Unassigned, [facility] [place] [facility] CONSENT/REFUSAL FOR 2021-08-26 15:20:47 Doctor Unassigned, [facility] DIAGNOSIS AND TREATMENT [place] [facility] CONSENT/REFUSAL FOR 2021-08-26 15:20:47 Doctor Unassigned, [facility] DIAGNOSIS AND TREATMENT [place] [facility] EMERGENCY SERVICES 2021-08-26 06:01:00 Doctor Ericka, [facility] AGREEMENTS AND [place] [facility] AUTHORIZATIONS CONSENT/REFUSAL FOR 2021-08-25 23:55:56 Doctor Ericka [facility] DIAGNOSIS AND TREATMENT [place] [facility] CT ABDOMEN PELVIS W 2021-08-20 21:07:04 Bill Love [facility] CONTRAST Medical Branch CT ABDOMEN PELVIS W 2021-08-20 21:07:04 Bill Love [facility] CONTRAST Medical Branch LIPASE 2021-08-20 19:22:00 Bill Love [facility] COMP. METABOLIC PANEL 2021-08-20 19:22:00 Bill Love [facility] ([id number]) Medical Branch CBC WITH DIFF 2021-08-20 19:22:00 Bill Love [facility] Medical Branch COVID-19 (ID NOW RAPID 2021-08-20 19:22:00 Bill Love B [facility] TESTING) Medical Branch COVID-19 (ID NOW RAPID 2021-08-20 19:22:00 Kate Bill B [facility] TESTING) Medical Branch CBC WITH DIFF 2021-08-20 19:22:00 Bill Love [facility] Medical [place] COMP. METABOLIC PANEL 2021-08-20 19:22:00 Bill Love [facility] ([id number]) Medical Branch LIPASE 2021-08-20 19:22:00 Bill Love [facility] LAB ONLY COVID 2021-08-20 19:22:00 Bill Love [facility] INTERPRETATION [facility] URINALYSIS 2021-08-20 19:21:00 Bill Love [facility] URINALYSIS 2021-08-20 19:21:00 Bill Love [facility] CONSENT/REFUSAL FOR 2021-08-20 18:53:44 Doctor Unahossein [facility] DIAGNOSIS AND TREATMENT [place] [facility] CONSENT/REFUSAL FOR 2021-08-20 18:53:44 Doctor Ericka [facility] 2021-08-20 06:01:00 Doctor Ericka, [facility] AGREEMENTS AND [place] [facility] AUTHORIZATIONS COMP. METABOLIC PANEL 2021-08-05 08:59:00 Diandra Walker [facility] ([id number]) [facility] CBC WITH DIFF 2021-08-05 08:59:00 Diandra Walker [facility] CONSENT/REFUSAL FOR 2021-08-05 08:36:17 Doctor Ericka [facility] DIAGNOSIS [facility] TREAT[facility]ST 1 VW 2020-11-02 16:13:24 Diandra Walker [facility] HB ECG ROUTINE & RHYTHM 2020-11-02 05:10:19 Jl Valdes [facility] CREATINE KINASE 2020-11-02 00:55:00 Jl Valdes [facility] HEPATIC FUNCTION PANEL 2020-11-02 00:55:00 Jl Valdes [facility] ([id number]) (ALB,T.PRO,BILI Medical Branch T,BU/BC,ALT,AST,ALK PHOS) BASIC METABOLIC PANEL (NA, 2020-11-02 00:55:00 Jl Valdes [facility] K, CL, CO2, GLUCOSE, BUN, Medica l Branch CREATININE, CA) ETHANOL 2020-11-02 00:55:00 Jl Valdes [facility] EXTRA TUBE LT. BLUE 2020-11-02 00:55:00 Jl Valdes [facility] EXTRA TUBE SST 2020-11-02 00:55:00 Jl Valdes [facility] EXTRA TUBE LT. GREEN 2020-11-02 00:55:00 Jl Valdes [facility]UG (IMMUNOASSAY) - 2020-11-02 00:54:00 Jl Valdes [facility] 4 ER PANEL [facility] URINALYSIS 2020-11-02 00:54:00 Jl Valdes [facility] COVID-19 (ID NOW RAPID 2020-11-02 00:54:00 Jl Valdes [facility] TESTING) [facility] HB ECG ROUTINE & RHYTHM 2020-11-02 00:53:55 Jl Valdes [facility] STRIP [facility] SALICYLATE 2020-11-02 00:36:00 Jl Valdes [facility] CBC WITH DIFF 2020-11-02 00:36:00 Jl Valdes [facility] NOTICE OF PRIVACY 2020-11-01 22:31:10 Doctor Unassigned, [facility] PRACTICES [place] [facility] Encounters Start End Encounter Admission Attending Care Care Encounter Source Date/Time Date/Time Type Type Clinicians Facility Department ID 2021-05-25 Emergency [facility] [id number] Univers 11:58:21 [facility] 2022-08-15 2022-08-15 [facility] [id number] Univers 15:12:00 16:27:00 Janeth SKELTON [id number] [facility] 4.2.7.2.686 [facility] [id number] [facility] 084 Branch 2022-08-15 2022-08-15 [facility] [id number] Univers 15:12:00 16:27:00 JANETH [facility] 2022-06-10 2022-06-10 Outpatient [facility] [id number] Chris 09:41:08 09:41:08 [id number] F Song 2021-11-20 2021-11-20 Transition Aj FELICIA [id number] Univers 00:00:00 00:00:00 of Care Kanwal RAY [id number] ity of [place] [id number] [facility] 403 Branch 2021-11-06 2021-11-19 Inpatient X [facility] [id number] Univers 19:16:00 09:10:00 CARLOS ity of [facility] 2021-11-06 2021-11-19 [facility] IvonnevannessacynthiaJl 1.2.840. 114 [id number] Univers 19:16:00 09:10:00 Encounter Gene Rushing [id number] ity of [facility] 4.2.7.2.686 [place] [id number] [facility] 091 Branch 2021-11-08 2021-11-08 Anesthesia Jose Armando Reno 1.2.840.1 [id number] Univers 00:55:00 03:14:00 Event Jose Raul Julio 53881.1.1 ity of 3.104.2.7 [place] .3.108930 Medica l .8 Branch 2021-11-07 2021-11-07 Surgery Dunn, 1.2.840.7 [id number] Univers 20:00:00 22:24:00 Carlos 26466.1.1 ity of 3.104.2.7 [place] .3.467842 Medica l .8 Branch 2021-11-06 2021-11-06 Travel 1.2.840.1 [id number] Univers 00:00:00 00:00:00 [id number] 350.1.13.10 ity of 3.104.2.7 [place]3.698 [place] .3.674756 084.8 Medica l .8 Branch 2021-08-26 2021-08-26 Emergency X CLIO, [facility] ERT [id number] Univers 09:36:00 10:37:00 PATRICK ity of [facility] 2021-08-26 2021-08-26 Emergency Mob[place], 1.2.840.8 [id number] Univers 09:36:00 10:37:00 Patrick R 68006.1.1 ity of 3.104.2.7 [place] .3.242176 Medica l .8 [place] 2021-08-26 2021-08-26 Travel 1.2.840.1 [id number] Univers 00:00:00 00:00:00 [id number] 350.1.13.10 ity of 3.104.2.7 [place].3.698 [place] .3.297300 084.8 Medica l .8 [place] 2021-08-25 2021-08-25 [facility] [id number] Univers 16:53:00 17:32:00 ESTRADA ity of [facility] 2021-08-25 2021-08-25 Emergency Natalie, 1.2.840.8 [id number] Univers 16:53:00 17:32:00 Estrada S 56835.1.1 ity of 3.104.2.7 [place] .3.085500 Medica l .8 [place] 2021-08-20 2021-08-20 Emergency [facility] [id number] Univers 13:09:00 17:10:00 BILL ity of [facility] 2021-08-20 2021-08-20 Emergency Kate, 1.2.840.7 [id number] Univers 13:09:00 17:10:00 Bill B 69008.1.1 ity of 3.104.2.7 [place] .3.974444 Medica l .8 [place] 2021-08-20 2021-08-20 Travel 1.2.840.1 [id number] [id number] Univers 00:00:00 00:00:00 [id number] 350.1.13.10 ity of 3.104.2.7 [place].3.698 [place] .3.911997 084.8 Medica l .8 Branch 2021-08-05 2021-08-05 Emergency X [facility] ERT [id number] Univers 02:49:00 04:01:00 DIANDRA ity of [facility] 2021-08-05 2021-08-05 Emergency [facility] 1.2.840.114 [id number] Univers 02:49:00 04:01:00 Diandra Armani SKELTON 350.1.13.10 ity of [place] 4.2.7.2.686 [facility] [id number] [address] 2021-08-05 2021-08-05 Orders Doctor CHOWDARY 1.2.840.114 [id number] Univers 00:00:00 00:00:00 Only Unassigned, MIRTA 350.1.13.10 ity of [place] [facility] 4.2.7.2.686 [place] [id number] [address] 2020-11-01 2020-11-04 Emergency [facility] [id number] [facility] 17:57:00 01:17:00 Jl Skelton 350.1.13.10 ity of [place] 4.2.7.2.686 [facility] [id number] [address] 2020-11-01 2020-11-04 [facility] [id number] 17:57:00 01:17:00 Jl Skelton 350.1.13.10 [place] 4.2.7.2.686 [place] [id number] [facility] 2020-11-01 2020-11-01 Orders Doctor EPI 1.2.840.114 [id number] Univers 00:00:00 00:00:00 Only Unassigned, MIRTA 350.1.13.10 ity of [place] [facility] 4.2.7.2.686 [place] [id number] [address] 2020-11-01 2020-11-01 Orders Doctor CHOWDARY 1.2.840.114 [id number] 00:00:00 00:00:00 Only Unassigned, MIRTA 350.1.13.10 [place] [facility] 4.2.7.2.686 [id number] 2019-11-01 2019-11-01 Letter AlysonEPI 1.2.840.114 [id number] Univers 00:00:00 00:00:00 (Out) Lori Vernon MIRTA 350.1.13.10 i ty of HOSPITAL 4.2.7.2.686 [place] [id number] [address] 2019-11-01 2019-11-01 Letter AlysonEPI 1.2.840.114 [id number] 00:00:00 00:00:00 (Out) Lori Junior MIRTA 350.1.13.10 [facility] HOSPITAL 4.2.7.2.686 [id number] 019 2019-10-28 2019-10-28 Telephone EPI Sorenson [id number] [facility] 00:00:00 00:00:00 Piper R MIRTA 350.1.13.10 it y of [facility] 4.2.7.2.686 [place] as [phone] [address] 2019-10-28 2019-10-28 Telephone EPI Sorenson [id number] 00:00:00 00:00:00 Piper R MIRTA 350.1.13.10 [facility] 4.2.7.2.686 [id number] 019 2019-10-26 2019-10-26 Urgent Pob1, Acute Care Clinic [facility] 1. 2.840.114 [id number] [facility] 14:49:36 15:27:44 [facility] 350.1.13.10 ity of [place] 4.2.7.2.686 [place] as Professio [phone] Md dical [address] 2019-10-26 2019-10-26 Urgent Pob1, Acute [facility] 1.2.840.114 [id number] 14:49:36 15:27:44 [facility] 350.1.13.10 [place] 4.2.7.2.686 Professio [phone] [place] [address] [address] 2019-10-26 2019-10-26 Outpatient R THIERRY, [facility] [id number] [facility] 15:20:00 15:20:00 LYNN julian of [facility] 2019-10-26 2019-10-26 Nurse Adali Cunningham 1.2.840.114 [id number] Univers 00:00:00 00:00:00 Triage E MIRTA 350.1.13.10 it y of HOSPITAL 4.2.7.2.686 [place] as [phone] [address] 2019-10-26 2019-10-26 Telephone PcpEPI [id number] Univers 00:00:00 00:00:00 Patient MIRTA 350.1.13.10 it y of Does Not HOSPITAL 4.2.7.2.686 [place] A [phone] [address] 2019-10-26 2019-10-26 Adali Phillips 1.2.840.114 [id number] 00:00:00 00:00:00 Triage E MIRTA 350.1.13.10 HOSPITAL 4.2.7.2.686 [id number] 019 2019-10-26 2019-10-26 Telephone PcpEPI.2.239.038 [id number] 2066 00:00:00 00:00:00 Patient MIRTA 350.1.13.10 Does Not HOSPITAL 4.2.7.2.686 Have A [id number] 019 Results Test Description Test Time Test Comments Results Result Comments Source CBC WITH DIFF 2021-11-19 11:36:52 Test Item Value Reference Range Interpretation Comme nts WBC (test code = 6690-2) See_Comment H [A utomated message] The system which YesWeAd nerated this result transmit keshav reference range: 4.20 - 1 0.70 10*3/?L. The reference r waqas was not used to interpr et this result as normal/abnor mal. RBC (test code = 789-8) See_Comment L [Au tomated message] The system which YesWeAd nerated this result transmit keshav reference range: 4.26 - 5 .52 10*6/?L. The reference r waqas was not used to interpr et this result as normal/abnor mal. HGB (test code = 718-7) 11.9 g/dL 12.2-16.4 L HCT (test code = 4544-3) 35.5 % 38.4-49.3 L MCV (test code = 787-2) 90.3 fL 81.7-95.6 MCH (test code = 785-6) 30.3 pg 26.1-32.7 MCHC (test code = 786-4) 33.5 g/dL 31.2-35.0 RDW-SD (test code = 67392-2) 43.8 fL 38.5-51.6 RDW-CV (test code = 788-0) 13.1 % 12.1-15.4 PLT (test code = 777-3) See_Comment H [Au tomated message] The system which ge nerated this result transmit keshav reference range: 150 - 32 8 10*3/?L. The reference range was not used to interpret th is result as normal/abnormal . MPV (test code = 89939-6) 9.4 fL 9.8-13.0 L NRBC/100 WBC (test code = See_Comment [ Automated message] The 3648166203) system which ge nerated this result transmit keshav reference range: 0.0 - 10 .0 /100 WBCs. The reference r waqas was not used to interpr et this result as normal/abnor mal. NRBC x10^3 (test code = <0.01 See_Comment [Au tomated message] The 2973485468) system which ge nerated this result transmit keshav reference range: 10*3/?L. The reference range was not u sed to interpret this result as normal/abnormal . GRAN MAT (NEUT) % (test code 81.4 % = 770-8) IMM GRAN % (test code = 1.00 % 9158807907) LYMPH % (test code = 736-9) 10.2 % MONO % (test code = 5905-5) 5.2 % EOS % (test code = 713-8) 1.8 % BASO % (test code = 706-2) 0.4 % GRAN MAT x10^3(ANC) (test 17.78 10*3/uL 1.99-6.95 H code = 1121765072) IMM GRAN x10^3 (test code = 0.21 10*3/uL 0.00-0.06 H 1595846855) LYMPH x10^3 (test code = 2.22 10*3/uL 1.09-3.23 731-0) MONO x10^3 (test code = 1.13 10*3/uL 0.36-1.02 H 742-7) EOS x10^3 (test code = 0.40 10*3/uL 0.06-0.53 711-2) BASO x10^3 (test code = 0.09 10*3/uL 0.01-0.09 704-7) HYPERSEG NEUTS (test code = Present See_Comment A [Automated message] The [id number] system which ge nerated this result transmit keshav reference range: (none). The reference range was not u sed to interpret this result as normal/abnormal . Lab Interpretation (test Abnormal code = 43193-8) [facility] METABOLIC PANEL (NA, K, CL, CO2, GLUCOSE, BUN, CREATININE, CA)2021-11-19 11:19:04 Test Item Value Reference Range Interpretation Comments NA (test code = 135 mmol/L 135-145 2577853320) K (test code = 4.3 mmol/L 3.5-5.0 7098720734) CL (test code = 101 mmol/L 98-108 7352463766) CO2 TOTAL (test code 24 mmol/L 23-31 = 1135189899) AGAP (test code = 2-16 9115498639) BUN (test code = 13 mg/dL 7-23 5215577141) GLUCOSE (test code = 98 mg/dL 70-110 0334492368) CREATININE (test code 0.84 mg/dL 0.60-1.25 = 3155205996) CALCIUM (test code = 8.8 mg/dL 8.6-10.6 1602233507) eGFR (test code = mL/min/1.73m2 7739094322) SHANNA (test code = SHANNA) Association of Glomerular Filtration Rate (GFR) and Staging of Kidney Disease* + + +- +| GFR (mL/min/1.73 m2) ?| With Kidney Damage ?| ?Without Kidney Damage+ ------+ ----+ ------+| ?>90 ?| ?Stage one ?| ? Normal ?+ -+ + -+| ?60-89 ?| ?Stage two ?| ? Decreased GFR ? + + +- +| ?30-59 ?| ?Stage three ?| ? Stage three ? + + +- +| ?15-29 ?| ?Stage four ? | ? Stage four ?+ -+ + -+| ?<15 (or dialysis) ? ?| ?Stage five ? | ? Stage five ?+ -+ + -+ *Each stage assumes the associated GFR level [...] or urine or abnormalities in imaging tests). [facility] WITH [id number] 11:00:40 Test Item Value Reference Range Interpretation Comments WBC (test code = See_Comment H [Automated 6590-2) message] The system which generated this result transmit keshav reference range : 4.20 - 10.70 10*3/?L. The reference range was not used to interpret this result as normal/abnormal . RBC (test code = See_Comment L [Automated 749-8) message] The system which generated this result transmit keshav reference range : 4.26 - 5.52 10*6/?L. The reference range was not used to interpret this result as normal/abnormal . HGB (test code = 12.3 g/dL 12.2-16.4 718-7) HCT (test code = 36.4 % 38.4-49.3 L 4544-3) MCV (test code = 89.7 fL 81.7-95.6 787-2) MCH (test code = 30.3 pg 26.1-32.7 785-6) MCHC (test code = 33.8 g/dL 31.2-35.0 786-4) RDW-SD (test code = 43.5 fL 38.5-51.6 30645-6) RDW-CV (test code = 13.2 % 12.1-15.4 788-0) PLT (test code = See_Comment H [Automated 777-3) message] The system which generated this result transmit keshav reference range : 150 - 328 10*3/ ?L. The reference range was not u sed to interpret th is result as normal/abnormal . MPV (test code = 9.4 fL 9.8-13.0 L 87088-6) NRBC/100 WBC (test See_Comment [Automat ed code = 1718646241) message] The system which generated this result transmit keshav reference range : 0.0 - 10.0 /100 WBCs. The reference range was not used to interpret this result as normal/abnormal . NRBC x10^3 (test code <0.01 See_Comment [Auto mated = 7413501338) message] The system which generated this result transmit keshav reference range : 10*3/?L. The reference range was not used to interpret this result as normal/abnormal . GRAN MAT (NEUT) % 83.6 % (test code = 770-8) IMM GRAN % (test code 1.00 % = 6173215975) LYMPH % (test code = 9.4 % 736-9) MONO % (test code = 4.7 % 5905-5) EOS % (test code = 1.0 % 713-8) BASO % (test code = 0.3 % 706-2) GRAN MAT x10^3(ANC) 22.25 10*3/uL 1.99-6.95 H (test code = 1528265402) IMM GRAN x10^3 (test 0.27 10*3/uL 0.00-0.06 H code = 6490550948) LYMPH x10^3 (test code 2.50 10*3/uL 1.09-3.23 = 731-0) MONO x10^3 (test code 1.25 10*3/uL 0.36-1.02 H = 742-7) EOS x10^3 (test code = 0.27 10*3/uL 0.06-0.53 711-2) BASO x10^3 (test code 0.09 10*3/uL 0.01-0.09 = 704-7) Lab Interpretation Abnormal (test code = 74109-2) [facility] METABOLIC PANEL (NA, K, CL, CO2, GLUCOSE, BUN, CREATININE, CA)2021-11-18 11:00:00 Test Item Value Reference Range Interpretation Comments NA (test code = 134 mmol/L 135-145 L 6176500286) K (test code = 4.9 mmol/L 3.5-5.0 3649997815) CL (test code = 102 mmol/L 98-108 9181843562) CO2 TOTAL (test code = 21 mmol/L 23-31 L 4107219080) AGAP (test code = 2-16 9515100412) BUN (test code = 14 mg/dL 7-23 8482729371) GLUCOSE (test code = 92 mg/dL 70-110 7450597176) CREATININE (test code = 0.73 mg/dL 0.60-1.25 6499010409) CALCIUM (test code = 8.8 mg/dL 8.6-10.6 0304589683) eGFR (test code = mL/min/1.73m2 4701122235) HSANNA (test code = SHANNA) Association of Glomerular [...] tests). Lab Interpretation Abnormal (test code = 39594-5) [facility] WITH [id number] 11:17:20 Test Item Value Reference Range Interpretation Comments WBC (test code = See_Comment H [Automated 6690-2) message] The system which generated this result transmit keshav reference range : 4.20 - 10.70 10*3/?L. The reference range was not used to interpret this result as normal/abnormal . RBC (test code = See_Comment [Automated 789-8) message] The system which generated this result transmit keshav reference range : 4.26 - 5.52 10*6/?L. The reference range was not used to interpret this result as normal/abnormal . HGB (test code = 13.4 g/dL 12.2-16.4 718-7) HCT (test code = 40.0 % 38.4-49.3 4544-3) MCV (test code = 90.5 fL 81.7-95.6 787-2) MCH (test code = 30.3 pg 26.1-32.7 785-6) MCHC (test code = 33.5 g/dL 31.2-35.0 786-4) RDW-SD (test code = 43.5 fL 38.5-51.6 76512-7) RDW-CV (test code = 13.1 % 12.1-15.4 788-0) PLT (test code = See_Comment H [Automated 777-3) message] The system which generated this result transmit keshav reference range : 150 - 328 10*3/ ?L. The reference range was not u sed to interpret th is result as normal/abnormal . MPV (test code = 9.7 fL 9.8-13.0 L 86617-8) NRBC/100 WBC (test See_Comment [Automat ed code = 4893441112) message] The system which generated this result transmit keshav reference range : 0.0 - 10.0 /100 WBCs. The reference range was not used to interpret this result as normal/abnormal . NRBC x10^3 (test code <0.01 See_Comment [Auto mated = 4400720052) message] The system which generated this result transmit keshav reference range : 10*3/?L. The reference range was not used to interpret this result as normal/abnormal . GRAN MAT (NEUT) % 86.8 % (test code = 770-8) IMM GRAN % (test code 1.30 % = 0863406338) LYMPH % (test code = 7.5 % 736-9) MONO % (test code = 3.6 % 5905-5) EOS % (test code = 0.5 % 713-8) BASO % (test code = 0.3 % 706-2) GRAN MAT x10^3(ANC) 27.04 10*3/uL 1.99-6.95 H (test code = 8587694901) IMM GRAN x10^3 (test 0.39 10*3/uL 0.00-0.06 H code = 6647554499) LYMPH x10^3 (test code 2.33 10*3/uL 1.09-3.23 = 731-0) MONO x10^3 (test code 1.11 10*3/uL 0.36-1.02 H = 742-7) EOS x10^3 (test code = 0.16 10*3/uL 0.06-0.53 711-2) BASO x10^3 (test code 0.09 10*3/uL 0.01-0.09 = 704-7) KELLIE CELLS (test code 2+ See_Comment A [Auto mated = 7790-9) message] The system which generated this result transmit keshav reference range : (none). The reference range was not used to interpret this result as normal/abnormal . Lab Interpretation Abnormal (test code = 79229-3) [facility] METABOLIC PANEL (NA, K, CL, CO2, GLUCOSE, BUN, CREATININE, CA)2021-11-17 11:01:53 Test Item Value Reference Range Interpretation Comments NA (test code = 135 mmol/L 135-145 0244235501) K (test code = 4.4 mmol/L 3.5-5.0 4298526281) CL (test code = 97 mmol/L 98-108 L 0561796583) CO2 TOTAL (test code = 25 mmol/L 23-31 8817414632) AGAP (test code = 2-16 8476388567) BUN (test code = 15 mg/dL 7-23 9276690940) GLUCOSE (test code = 101 mg/dL 70-110 9205990124) CREATININE (test code = 0.82 mg/dL 0.60-1.25 0770771787) CALCIUM (test code = 8.9 mg/dL 8.6-10.6 0763595846) eGFR (test code = mL/min/1.73m2 4560834560) SHANNA (test code = SHANNA) Association of [...] tests). Lab Interpretation Abnormal (test code = 63158-9) [facility] 12:[facility]:56 Test Item Value Reference Range Interpretation Comments PHOSPHORUS (test code = 0628754496) 4.5 mg/dL 2.5-5.0 Lab Interpretation (test code = Normal 59737-2) [facility] 12:48:56 Test Item Value Reference Range Interpretation Comments MAGNESIUM (test code = 2965229966) 2.0 mg/dL 1.7-2.4 Lab Interpretation (test code = Normal 93425-4) [facility] (NA, K, CL, CO2, GLUCOSE, BUN, CREATININE, CA)2021-11-16 12:48:56 Test Item Value Reference Range Interpretation Comments NA (test code = 135 mmol/L 135-145 0910448196) K (test code = 4.8 mmol/L 3.5-5.0 8700575191) CL (test code = 98 mmol/L 98-108 9552383030) CO2 TOTAL (test code = 28 mmol/L 23-31 8858917329) AGAP (test code = 2-16 5572614025) BUN (test code = 11 mg/dL 7-23 4778355831) GLUCOSE (test code = 91 mg/dL 70-110 5538091041) CREATININE (test code = 0.76 mg/dL 0.60-1.25 4638025341) CALCIUM (test code = 8.3 mg/dL 8.6-10.6 L 7523678082) eGFR (test code = mL/min/1.73m2 9978711055) SHANNA (test code = SHANNA) Association of [...] tests). Lab Interpretation Abnormal (test code = 09331-9) [facility] (NA, K, CL, CO2, GLUCOSE, BUN, CREATININE, CA)2021-11-16 12:48:56 Test Item Value Reference Range Interpretation Comments NA (test code = 135 mmol/L 135-145 1170239979) K (test code = 4.8 mmol/L 3.5-5.0 8095982213) CL (test code = 98 mmol/L 98-108 5434535192) CO2 TOTAL (test code = 28 mmol/L 23-31 4214719931) AGAP (test code = 2-16 9493757905) BUN (test code = 11 mg/dL 7-23 1876156233) GLUCOSE (test code = 91 mg/dL 70-110 3425954532) CREATININE (test code = 0.76 mg/dL 0.60-1.25 4591447696) CALCIUM (test code = 8.3 mg/dL 8.6-10.6 L 7602640079) eGFR (test code = mL/min/1.73m2 3647648089) SHANNA (test code = SHANNA) Association of [...] tests). Lab Interpretation Abnormal (test code = 21032-6) [facility] 12:48:56 Test Item Value Reference Range Interpretation Comments MAGNESIUM (test code = 0204235066) 2.0 mg/dL 1.7-2.4 Lab Interpretation (test code = Normal 60302-4) [facility] 12:48:56 Test Item Value Reference Range Interpretation Comments PHOSPHORUS (test code = 3980308111) 4.5 mg/dL 2.5-5.0 Lab Interpretation (test code = Normal 42088-0) [facility] [id number] 12:17:35 Test Item Value Reference Range Interpretation Comments WBC (test code = See_Comment H [Automated 8123-2) message] The system which generated this result transmit keshav reference range : 4.20 - 10.70 10*3/?L. The reference range was not used to interpret this result as normal/abnormal . RBC (test code = See_Comment [Automated 031-8) message] The system which generated this result transmit kehsav reference range : 4.26 - 5.52 10*6/?L. The reference range was not used to interpret this result as normal/abnormal . HGB (test code = 13.4 g/dL 12.2-16.4 718-7) HCT (test code = 40.3 % 38.4-49.3 4544-3) MCV (test code = 91.6 fL 81.7-95.6 787-2) MCH (test code = 30.5 pg 26.1-32.7 785-6) MCHC (test code = 33.3 g/dL 31.2-35.0 786-4) RDW-SD (test code = 45.1 fL 38.5-51.6 51112-7) RDW-CV (test code = 13.2 % 12.1-15.4 788-0) PLT (test code = See_Comment H [Automated 777-3) message] The system which generated this result transmit keshav reference range : 150 - 328 10*3/ ?L. The reference range was not u sed to interpret th is result as normal/abnormal . MPV (test code = 9.3 fL 9.8-13.0 L 04354-6) NRBC/100 WBC (test See_Comment [Automat ed code = 9839626538) message] The system which generated this result transmit keshav reference range : 0.0 - 10.0 /100 WBCs. The reference range was not used to interpret this result as normal/abnormal . NRBC x10^3 (test code <0.01 See_Comment [Auto mated = 4217472194) message] The system which generated this result transmit keshav reference range : 10*3/?L. The reference range was not used to interpret this result as normal/abnormal . GRAN MAT (NEUT) % 81.2 % (test code = 770-8) IMM GRAN % (test code 1.20 % = 9876464308) LYMPH % (test code = 10.7 % 736-9) MONO % (test code = 5.0 % 5905-5) EOS % (test code = 1.7 % 713-8) BASO % (test code = 0.2 % 706-2) GRAN MAT x10^3(ANC) 17.69 10*3/uL 1.99-6.95 H (test code = 9792920918) IMM GRAN x10^3 (test 0.26 10*3/uL 0.00-0.06 H code = 6456369819) LYMPH x10^3 (test code 2.34 10*3/uL 1.09-3.23 = 731-0) MONO x10^3 (test code 1.09 10*3/uL 0.36-1.02 H = 742-7) EOS x10^3 (test code = 0.36 10*3/uL 0.06-0.53 711-2) BASO x10^3 (test code 0.04 10*3/uL 0.01-0.09 = 704-7) Lab Interpretation Abnormal (test code = 78392-6) [facility] WITH [id number] 12:17:35 Test Item Value Reference Range Interpretation Comments WBC (test code = See_Comment H [Automated 0691-2) message] The system which generated this result transmit keshav reference range : 4.20 - 10.70 10*3/?L. The reference range was not used to interpret this result as normal/abnormal . RBC (test code = See_Comment [Automated 679-8) message] The system which generated this result transmit keshav reference range : 4.26 - 5.52 10*6/?L. The reference range was not used to interpret this result as normal/abnormal . HGB (test code = 13.4 g/dL 12.2-16.4 718-7) HCT (test code = 40.3 % 38.4-49.3 4544-3) MCV (test code = 91.6 fL 81.7-95.6 787-2) MCH (test code = 30.5 pg 26.1-32.7 785-6) MCHC (test code = 33.3 g/dL 31.2-35.0 786-4) RDW-SD (test code = 45.1 fL 38.5-51.6 54319-2) RDW-CV (test code = 13.2 % 12.1-15.4 788-0) PLT (test code = See_Comment H [Automated 777-3) message] The system which generated this result transmit keshav reference range : 150 - 328 10*3/ ?L. The reference range was not u sed to interpret th is result as normal/abnormal . MPV (test code = 9.3 fL 9.8-13.0 L 55687-8) NRBC/100 WBC (test See_Comment [Automat ed code = 0873147527) message] The system which generated this result transmit keshav reference range : 0.0 - 10.0 /100 WBCs. The reference range was not used to interpret this result as normal/abnormal . NRBC x10^3 (test code <0.01 See_Comment [Auto mated = 6701878288) message] The system which generated this result transmit keshav reference range : 10*3/?L. The reference range was not used to interpret this result as normal/abnormal . GRAN MAT (NEUT) % 81.2 % (test code = 770-8) IMM GRAN % (test code 1.20 % = 1296738851) LYMPH % (test code = 10.7 % 736-9) MONO % (test code = 5.0 % 5905-5) EOS % (test code = 1.7 % 713-8) BASO % (test code = 0.2 % 706-2) GRAN MAT x10^3(ANC) 17.69 10*3/uL 1.99-6.95 H (test code = 3669893174) IMM GRAN x10^3 (test 0.26 10*3/uL 0.00-0.06 H code = 3265957780) LYMPH x10^3 (test code 2.34 10*3/uL 1.09-3.23 = 731-0) MONO x10^3 (test code 1.09 10*3/uL 0.36-1.02 H = 742-7) EOS x10^3 (test code = 0.36 10*3/uL 0.06-0.53 711-2) BASO x10^3 (test code 0.04 10*3/uL 0.01-0.09 = 704-7) Lab Interpretation Abnormal (test code = 26550-8) [facility] 07:23:43 Test Item Value Reference Range Interpretation Comments PHOSPHORUS (test code = 9258344800) 3.9 mg/dL 2.5-5.0 Lab Interpretation (test code = Normal 24619-2) [facility] (NA, K, CL, CO2, GLUCOSE, BUN, CREATININE, CA)2021-11-15 07:23:42 Test Item Value Reference Range Interpretation Comments NA (test code = 133 mmol/L 135-145 L 7586974817) K (test code = 4.2 mmol/L 3.5-5.0 3774366773) CL (test code = 98 mmol/L 98-108 2771350222) CO2 TOTAL (test code = 26 mmol/L 23-31 5494216429) AGAP (test code = 2-16 8746882295) BUN (test code = 10 mg/dL 7-23 4700078827) GLUCOSE (test code = 99 mg/dL 70-110 5921638446) CREATININE (test code = 0.71 mg/dL 0.60-1.25 5736917644) CALCIUM (test code = 7.9 mg/dL 8.6-10.6 L 4826360679) eGFR (test code = mL/min/1.73m2 6067852408) SHANNA (test code = SHANNA) Association of [...] tests). Lab Interpretation Abnormal (test code = 60224-8) [facility] 07:23:42 Test Item Value Reference Range Interpretation Comments MAGNESIUM (test code = 7979002362) 1.7 mg/dL 1.7-2.4 Lab Interpretation (test code = Normal 75630-0) [facility] [id number] 06:26:58 Test Item Value Reference Range Interpretation Comments WBC (test code = See_Comment H [Automated 6690-2) message] The system which generated this result transmit keshav reference range : 4.20 - 10.70 10*3/?L. The reference range was not used to interpret this result as normal/abnormal . RBC (test code = See_Comment L [Automated 789-8) message] The system which generated this result transmit keshav reference range : 4.26 - 5.52 10*6/?L. The reference range was not used to interpret this result as normal/abnormal . HGB (test code = 11.7 g/dL 12.2-16.4 L 718-7) HCT (test code = 34.8 % 38.4-49.3 L 4544-3) MCV (test code = 91.3 fL 81.7-95.6 787-2) MCH (test code = 30.7 pg 26.1-32.7 785-6) MCHC (test code = 33.6 g/dL 31.2-35.0 786-4) RDW-SD (test code = 44.4 fL 38.5-51.6 95536-6) RDW-CV (test code = 13.2 % 12.1-15.4 788-0) PLT (test code = See_Comment H [Automated 777-3) message] The system which generated this result transmit keshav reference range : 150 - 328 10*3/ ?L. The reference range was not u sed to interpret th is result as normal/abnormal . MPV (test code = 9.3 fL 9.8-13.0 L 37347-5) NRBC/100 WBC (test See_Comment [Automat ed code = 8137033940) message] The system which generated this result transmit keshav reference range : 0.0 - 10.0 /100 WBCs. The reference range was not used to interpret this result as normal/abnormal . NRBC x10^3 (test code <0.01 See_Comment [Auto mated = 2182400318) message] The system which generated this result transmit keshav reference range : 10*3/?L. The reference range was not used to interpret this result as normal/abnormal . GRAN MAT (NEUT) % 80.1 % (test code = 770-8) IMM GRAN % (test code 1.50 % = 3920238185) LYMPH % (test code = 10.2 % 736-9) MONO % (test code = 6.9 % 5905-5) EOS % (test code = 1.1 % 713-8) BASO % (test code = 0.2 % 706-2) GRAN MAT x10^3(ANC) 12.97 10*3/uL 1.99-6.95 H (test code = [id number]) IMM GRAN x10^3 (test 0.25 10*3/uL 0.00-0.06 H code = [id number]) LYMPH x10^3 (test code 1.66 10*3/uL 1.09-3.23 = 731-0) MONO x10^3 (test code 1.11 10*3/uL 0.36-1.02 H = 742-7) EOS x10^3 (test code = 0.18 10*3/uL 0.06-0.53 711-2) BASO x10^3 (test code 0.03 10*3/uL 0.01-0.09 = 704-7) Lab Interpretation Abnormal (test code = 14358-4) [facility] [id number] 22:17:56 Test Item Value Reference Range Interpretation Comments Case Report (test code Surgical Pathology ? ? = [id number]) ?Case: [id number] ? Authorizing Provider: ?Carlos Dunn, DO ? ? ?Collected: ? 11/08/2021 0303 ?Ordering Location: ? ? [facility] OR ? Received: ?11/10/2021 0942 ? Department ? Pathologist: ? Quentin, Víctor, PHD ?Specimen: ? ?STOMACH, gastric biopasy ? Final Diagnosis (test p1tyoHQnLCAlv2cnHUSloS code = 6043690730) FuZzEwMzNcZnRuYmpcdWMx IHtccnRmMVxlcGljOTYwMV qokaOpLYTctFQgJ7Cwdlux LCszXN2pDJ3kiZbnhIAruW ChYXYvAtPvr3pyd428fTQu i7voQZXFepjqyTa8kYwsR3 4ji1Y2BgpfM99nhARcRBD5 XYOnHQToyHOjZNFfQXW3NX OwiBHvE6paWWIkZZ0ynxip WRwjWUqcGOToyLQ4KCKwnD GzI0LvTQSwZGesRSHyiod9 ZbKlKx8sqWRciAdxKBlqXB JkXHBsYWluXGZzMjBccGFy UVWiOPGIS86UN8scYMGQM5 BTWTpccGFyICAgICAgLSBV URIYYgGPJZJhK4WWYOZQHs HAFEOCD3RqE7eYYGXBMVLL RgbTPOoZA1FVXAGGTmSRMt SqQL5UDITLEB0SWVXFEMHY JCoYX6eQFJRfeWAzUSZmRZ AgICBJTkNPTVBMRVRFIFRZ UEVccGFyICAgICAgLSBOTy ESYJgOK48QLpVAZWoXPP1I SUZJRURccGFyICAgICAgLS BOTyBILiBQWUxPUkkgSURF ZuPPNzdDNNJAAjWAMC0NVn 9TVEFJTlxwYXJcZnMyMlxw UKHtE2y9k2l9oUGjcOb9iJ Yxf7QfAultnbzwFLAJQtZE OVG9ErTdSiTwOaFhBOgagd BvMAZcfEKbPSSids49SCH3 NlAbx4X5DACiMwPbHPCbMO 8hfRqhFOAtYU6qAWYwT1ia pK6arjq9YfEmTNEmUzW9SA RvmuO9Fbz0UCAcXChvm8sr s1PbR9MmdAUwjJa1m8piIR ZqCgT5hIAiANcrP1depoSw dKIlYISrHSj5eEybCbFlDC Cka4upzgSvTfSvBJGnMYSo RBKxfKxdcck1mT03LWYlgB 2lqDWjETdbvfOmBcJ7TYcg WZEnXbG3PRZfdDKwTTGuO7 xyZWQwXGdyZWVuMFxibHVl WYZ5nMytk7H3dQPezOWomE wpXtVyChYkSLFUh4YmCOa6 xDldG6ReADYhLcW2uDAgRQ EiTYvvNPFwOAKkcpZ2mS32 SVjghmV1nSKgf1Xwg16nw1 93hY8zkWDcJFX5XSQmODKh pLPeUSVdFJI9JKTavNCvO0 ttKXXxYT3bgqoiLTkmTWbr BNDutWJ0CWEboPExT3HkJR DxREpfIAUotzq0QzWuMu4l vELtkUpqSOyky6uen7xfqP RvKih4PUHnWfXoJvyaPPqo i1Phi6aoEIGicd9nUDP0pK AtrQkbu8B7oPZdSESvuKPi tfDeGMGnGdH0LOxmKV3nkw 48EABtNFF6ea2lcLRrjExk qsReqLKfPLgoS4ZsJEYxb2 90ACZwS0JsKKXtf1S5fpQk StPdFAQemWG7neO4AUDiUN o3iXLuppB4znSvxURhC0mb mL2jAAJwDB8thklwd8koIJ fvEYlyDJEgwVT8smG9DMSh qIMuD9CplG6uFQJpBRliBL Drpiy3KuRgUw3apKBclLfy MFxzYmtwYWdlXHBnbmNvbn RccGduZGVjXHBsYWluXHBs YWluXGYwXGZzMjRccWxccG zefS9uFbMjQlVqWJmhXK5y PTYuC0ngeUWnCYAuNUDlN5 dmWrIjiM1mhYwzKTxmZuEj ZnMyMFxwYXIgSSBoYXZlIH SdxkAdrwRlhWzazzA5tNW2 ZWQgYWxsIHNwZWNpbWVucy 8ihThnWDTnBS3xHMOlykDq EUkptPxvKJbfYVP8WBRtsG VudHMgbWFkZSBieSByZXNp MTEirOMkEMCpnBcox0Wne1 EykRG8qW8fx3ayg1CjKEGc mQV5RH90peI8kY3sAPYvIZ 8rNZBzQZ3gxGQvaTAbCSKr h04dfJiutjGbYJLydzJgNX BsYWluXGYyXGZzMjhcbGFu ZzEwMzNcaGljaFxmMlxkYm WbNEXkNHwpG5ufNnFfGoOm PGnyBTF1bB== Clinical Information RLQ abdominal pain (test code = [R10.31] 9901775102) Gross Description (test n2xemEVxRCLnnPMXRRPmGb code = 4224975805) fiyzInFVRtwHVuM7Hlrzzm LKdgEP9zNR1leOiwqKHjkY FqVB0PTMPbYsFzVXTwbXLc crFpXoNiDIFfhKPycHY7RZ EwBG2kabdaMLstEPkxIQBc swS3PMOgmUGhU0GiLZZgXL 1bofcmZCP0TMnxhA8qifAT GnlkSo9vuRAzjOkjDnKxRh NoYXJzZXQwXGZuaWwgQXJp KFs5gG2COwulLGI6BBRFCv ueXVCwYE8Aw0iiFEWopLTr GJF7IZyndCTuIRVgPYNlFU h8WZPeRRsjjUTfJW7oxRnf HskrpLjoi3ApnASiKXmpXH WeUHUkVUmeZCDwVP7DLuQm FGwOEGkvLCC4DrJ4LRu2FJ KNIwZoYpDzPEq5IIP2EWLl JSs8YKh4ADpFUyEjQRU6Lz E4VPZbRXF2TeB8DKbbnSYj IFxcZiBBcmlhbCBcXGZzID VkHKxuRswyDBtcL75yiYbc kW5bTvZqQRGUKXFYFD7COy BBXHBhciANClxwbGFpblxl cGljTmVzdERvYzEgDQpcbH RycGFyXGxpbjBccmluMCAN ClxsdHJjaFxmczIyIFNwZW NpbWVuIEEgaXMgcmVjZWl2 APDahV1vNk1tjUMefB3aaB LbLWitSFS4uKHgCEVgSTQl UAWmQV54U6NdhyDqQAuzQK nsijDaPfEiQCVbFAQ9ppou HPZry9CfvSNvLC9wPJUxiu Mnk2ApMM3qPARxxIZzIKIi njbpeZWdKIf1qBTuYLTlZn YvpVcmy3BjVPJlRSooSC85 zwHrTX55TJayLJ70TEguFX 4yIGNtIGFuZCAwLjcgeCAw EiclbOXnIlSaS57dWrLPoS Ihu6CpA3miJT1poTJqVstt zOFmUMNssUhrc2SlsBAzAC Biw8LdbJFbSIcjXP2zJIW3 Mq8lzXSuHYLrtaT1h2HvVN luIEExLlxwYXIgDQpccGFy GI6PDTNgcSGMZMtys8MpQV tmKSKyTAOMS1KfMSyevKao iN6qSOTlQ34ps6HYa9PnBR BoVQqqd4ejwQjcx0HyfYVn RUfhWDVrqAQmURzzuE7aMs Lcs3csiOh9ECulhjH1HGIp ro3DChltgY9vWaAun9dgyS q5SJWSAfusibH1o2ldzEso f2NkqPEnOJ5SVr9= Disclaimer (test code = m1bidOLaHAPad6htVFXiaK [id number]) FuZzEwMzNcZnRuYmpcdWMx JIfdinZjOArtq0KzJ6ZvGq AwMFxhbnNpXGRlZmxhbmcx ENLkXGL3ozUeNVGrRJsgCY ImDZavRx6vxVEseWmtPvJf HVEpc3pwjnKJMLanPtGkN8 56OYSnRDilo5azr4ByPMCz tSAsx0G9GKALpcpqoEq0cS wwO80dg9W0CyvmL1faBDLk PFMhG7ChAV7eDHTzJrr8GJ A9PTI4THYbRCNuA2PzCM3m TCIdsWChEOv4y5iznXomXL SwJLH6r4opKGsggzUqGK6m qv9rnMw8a2limfUzZUIhFM VnaIUXJWJwQ6ZxrIgeFm4l rAi5kVugSbybBWD3Tpi2DW 6vnl03yqg0dLiwGTShwiok TeM5GFpzHNJtcimgBWm3GE juCBTfwXN7TKJoxQYqF5Ie LCQyGS4djxb2QTY7ASznEC WsGdH6ILNzkZSyMAKsnAeb WEdrk608SYN2UfCyXE5tF9 Zrr3K5xF7uiZMtQOZedLGf NsRzTTKzth4nrTZzTHubn8 YhCAH4ieN6vBQbgPPtJZAc HE26Fgbnf9KcDfotm0KvB0 1kwRM9AQehi9nlVI1oDeR8 ifJtFFpqq9fuxB9jKdO7SC tfHI2rQJ0wDPVsfW6zxtws XHBnYnJkcmhlYWRccGdicm QrDg3oqPrlCGQ4FZlnR1ab tO9bJfS5TBtiX2ydcL4gQU v5NBnigAE1RXEjiL6tZE1j ikmym2ruVQbeMGfiRKSrzj W2qiA1GUNctEPcE1OefJ5n CDWrJG5scllxe3hwNCX1KZ kpHWPqIHK3OwXfFMKhf4Sr aco1GgOqs2VwwLTwGGfjG9 4rb106YAOavuMsB9fieGEb prlltHZixtxiCOpckoS5LU LiixObq5LuBPCgWFT0CLuw TXosgLOrOBOvwAqtb2biB4 RscGFyXHBsYWluXGYxXGZz MjBcbGFuZzEwMzNcaGljaF klEPwuNsXhIFSlHKcyB5zj NlDwB4ZnTUPzLfPiuXRpN9 ggVGhpcyByZXBvcnQgbWF5 CUzkA8q4WRIngwJeaOg7sn IrWbJvCIMdWLV9NTqbqIOz XEOvc4XshkxdqGMmNc7cmZ DtHGRzbL6gLFCnWWXeBKav TN3pxOe5YRRMuOGhuORrQw NBFMYlGG03ctAmKWWYzyxu e2E6ZKajHZGnq7NwnVIcB7 smi7EyUYKbi78bZN2wz6Q5 b8buMGD6TY3ur4AcOXLcvQ AdyJLeLIMgb4Htzogak1Gd HFIjpmLtx0YgFUPyeeEkoW CwXTHyjlDgum8zmtVgSXOr OCGcT7HqcwdemLcbsoExCA Wmuw4wgjGtVDU6JWHCAJXk FKJxt0OffX6gzRSOETF3tM Jxfq5brcNQaUZxPWSbyd74 RUInFN9tW8koBLHaRRZoqz AhfNRfu5AvHGOeoHZ1oKDx RP1ZPqDAb74bLWErOOTWmo ZjQJYhmYojmLI0teR2dM3g IChGREEpLlx+IFRoZSBGRE VmMA2jttShq8GxilTfdKvw XJSkpAQaq4WooINue3BojN ncm9YmbSJnwKJySK0hPEMr clxwYXIgVVRNQiBMYWJvcm Y5p6MvKIVaGFEiLII7lEeo rpw0AVFpsS8jPJQnE0dgpk lhRBduUGKwg1JguP9wlGRR qFMpe9YiiNIuuTABlQYrJQ 1pnsPfHJkXXRaJJZU2qjPa XDRnq6CkGSfuD9ejY86leU nzkTe5sOX3PKD1oD3yCxg+ IFxwYXJccGFyIEFwcHJvcH MqOCAxzTocsyEgQ3DrjjVt uI2qeOMzynScLY3cAU8lQ4 L5yUKjOFIprkXwa8blXMen dmUgYmVlbiByZXZpZXdlZC Pxq5MhTBzdLZM3OGdidtRd bmNsdWRpbmcgSCZFLCBTcG XhqTRdJYD0SQgixpIbbhGi SJ9slL8fwMkrsT2crMCnwD J4amedQWBgMSJsgCspIESr TR5zpRQlLYCadfPVeRcjdO JhuR4kZ1DfGXBzJLMsjw9e CWVlrQ9vWBkfq6HgziixCR FxSQKyYUSdccTuib9lKDKd hIARIJ5JFEismOWxc4Mtcp HfZ9zHZDN3JNDuGsUcEols HONnjYUwgKNjASAfav94QL KnlL5sbKzdIMQjuH6bnJ2r yYjfaU6uUfEaAuHoVRpmMG 7xIXSlX7ffzSNtWOPhVXIh H5bsEiDjnK7ruHveVBtnHf GrSmUqTUstDJS8aO== Embedded Images (test code = 7545141382) [facility] [id number] 22:17:56 Test Item Value Reference Range Interpretation Comments Case Report (test code Surgical Pathology ? ? = [id number]) ?Case: [id number] ? Authorizing Provider: ?Carlos Dunn DO ? ? ?Collected: ? 11/08/2021 0303 ?Ordering Location: ? ? [facility] OR ? Received: ?11/10/2021 0942 ? Department ? Pathologist: ? Víctor Saavedra MD PHD ?Specimen: ? ?STOMACH, gastric biopasy ? Final Diagnosis (test d7edrJQaNPSwp1ejAJMutM code = [id number]) FuZzEwMzNcZnRuYmpcdWMx IHtccnRmMVxlcGljOTYwMV muzfAkGOJjtQOqG3Jjtvjh LJtjCM1cMF1ezMfjaILukC RqXIWyQgFoe4hvr882fZRt h0niNCUTozgihSh1eMdpE6 0dh8C9DdbiX50ojMUgMAF7 CRDoFFUgmUJpFXJsOIW7DY GtnIEdG1hbLEYtYC2rzngq LRxhDNzsJPOesKS6IDQadO VqH6WsIMNxSIzbLTZrtgc0 ZvMhNx9uhGWkuLhpKCgwBU JkXHBsYWluXGZzMjBccGFy YWCvHMBVL39LB9sjKJENY4 BTWTpccGFyICAgICAgLSBV BFFFYgHWPJUfK9MQDJHCDj IGKBFCQ8CdH6vPINVUIRWI LtfQACdUJ8PUMYGCCxBOKh FqFS6GSCCJFX6OQJDHUANH QVhHA2xQJQOcgCDdMPUtJD AgICBJTkNPTVBMRVRFIFRZ UEVccGFyICAgICAgLSBOTy NXQJwFG68FEvOIJPkEKC4K SUZJRURccGFyICAgICAgLS BOTyBILiBQWUxPUkkgSURF OrZIYhnIWSOTTiMFKZ9HLk 9TVEFJTlxwYXJcZnMyMlxw VQBxS0r6i3e0jWZjiHg6lR Kpc0CbPlxeucyhWCIWIhWU DQN3NfBrQtKlEiMvWNxqdt JtUCEfzVNaBTUhqt18FLU6 GqQsx6F2KBBnOlOuDDFfAJ 8ciYrwVXKgWZ2tJFCcB6ng xX8gcqs4LvUlPXDlUmN2WW TyumI5Opm2GPBnCYhly3fl p6VgJ2JtrMGzjGx7a8nvNI RpLpB3vRQlDWiuL5azxgZk cWWsCRYjRRy1rPexOaXaMO Fdn1uojuJxLeJpAQCrGOIh WIFuhCgofbc8hO83MTXmzX 9lcOPgMBmslpObYcO5MKsx YBUuBoV9PHIvxTRdOJUsP9 xyZWQwXGdyZWVuMFxibHVl JPM1vZubd5M0tQBnlRNpyN hmOySyBbKwLAUCq0EuDZd1 nLtsH8JcNBTcBkA9cLOfSY IgCIfgPALtQFVyavB0bY90 SEixcfB1rXSby2Mxk43uy1 33bJ0lnHOoQOX7AGXqPTSm kHYlOJLqVXY8HISeyGNzB0 otRMNcJN0pxqxgUAucHQsl PUTcpZX5IEDvrEFwW6UjSF GpTOyqPGPzfrv4HrUqLh3m hXZgmAmnRFgsr7tja6slaP YaWlj2OTLmJhZnSqeqWHsa o0Uqf3rsTTWqkw3mNFR9sW JtvDfas5D6tBYwHQUblQRk etFiCMLaRpB1RNoxRJ6auk 49TZWaTPI4rc6gqOIpfBgx rjCrlGOiIUoqM7OvGAIet2 62DKLyM1YzXARan6S3ecFa NqSdSGDejEQ7tuF8SNJhEK a1tZDpoaK5tdJynRRwF9tm aH8cFGQhTW2djkdxt2rwHZ ufHInbURPgjVN9wgJ4WBEa gCSlD5WkzT5aSEVxDFzvIM Ypalm9QvLqCf9pbMIbpGdy MFxzYmtwYWdlXHBnbmNvbn RccGduZGVjXHBsYWluXHBs YWluXGYwXGZzMjRccWxccG bswM6oIeKaRkTdXCfeTM2k YLDsP9mdmQAkBGEwBCWwW7 gcAdGgcY0pgOqjYRgiOuAj ZnMyMFxwYXIgSSBoYXZlIH PvbaFgvcQusAgkydT1lBX3 ZWQgYWxsIHNwZWNpbWVucy 2srEspDMLzSJ2jDONeagGn IVsgnKvgWDcvIYV6BTUpfN VudHMgbWFkZSBieSByZXNp KILstVPuUCSmjHxli1Fuq1 YnqIX3pD0yi1iox2VwQVXi oNZ3ZM48txT0hM9iYEGvMN 8eTKRvOC4dbVDqbCIcQTBt h12brEaotmIwKSAdybMnCM BsYWluXGYyXGZzMjhcbGFu ZzEwMzNcaGljaFxmMlxkYm GyBGEkSAipL5ipBsNkJpCh CCjeGAZ7jG== Clinical Information RLQ abdominal pain (test code = [R10.31] 3432821669) Gross Description (test w9apuDLjKTXpaWCWEJBdBa code = 7350044698) ykwqVuBWTeuQGnE4Jewghb FJyfTK3cVO8yaDcymEByjY SpAR4HNYCoRoXdMVHvzZCi bnJnVbTxAUQriMEstNC8WO TwRX3xxxdqLHbbYEjhXADu gsK8OKOhtRPkD0HhGTFsJC 2yetxaRUT7YYkrdM7vckQB FpmvRv5azLMaxUhqIcBcKe NoYXJzZXQwXGZuaWwgQXJp OQb4pE1JDtbaZQN0AIOVIo ykEAPbDC5Nf6hjDAAckGJo FTI2NZmchXBcZNBcXNWfXD a7VMTpZVlmnFCcPG1lnHic WmqeoJhcq3DqdTOkBKqbUG YhNMPuELmkVORkRJ8WCuPa IKmMPTtgKIG0RbA4LGx4PP NABiWgUxQrKSm6KAH3SQKp DFz8QDc8KYxDPdDoOMC7Ww V0BLJqWIG7RuV1PAzgbQLg IFxcZiBBcmlhbCBcXGZzID KwNLjpKmleQDqnH26cmKge nN4wMmDkEJOQNBYNXP0HGp BBXHBhciANClxwbGFpblxl cGljTmVzdERvYzEgDQpcbH RycGFyXGxpbjBccmluMCAN ClxsdHJjaFxmczIyIFNwZW NpbWVuIEEgaXMgcmVjZWl2 MMMbuN0aKh7dkNHatY3sgJ HtSWmxMCG6hKBrDYXfWIJj RCErEQ82M9PxdxVaMDevWC qfbgOlRoHoYLTmYCZ1ijtu QTTuw9FpvYEkTD6pNCWeid Hqk2HeKI0pNJAvoSKzHSNs djfcdIAfHEo5sJEeWWIlEf DwpZous2EzGHDfPRjvHE92 gdYgTF45MTroRQ19USegCH 4yIGNtIGFuZCAwLjcgeCAw FyuevRRyKxDzN63jTrAPuB Dcp6CsZ6lzYR1wxRIwHayq cNGmOAKtqZcuj1NnoGNmXA Tyg5XhuFYlEJukBJ1nGTM1 Sy6ktHHvRDGvlyR6f6KbQN luIEExLlxwYXIgDQpccGFy NL0TUCTcbXEMOKgau0SmGW xhZCYvIBCHX1DlHBiplCty iO4yCRAwJ77pc5FFl9OiFN RsELmrz6ibwUrjw3XmhVOf ACwdCTAeaIQrQEauvM3tJp Aiv2wewIm2EAewgnS0JDMw qn7ZLzutwE1dWcQvy1azwB h9EGRCUdrxhaJ9o9pxuSyr v3NzmIFaAR4IKf3= Disclaimer (test code = b1kzyUEmFIZjh0bfOJEreG [id number]) FuZzEwMzNcZnRuYmpcdWMx TVwdkkAbFLhpb5WfJ1PtNi AwMFxhbnNpXGRlZmxhbmcx IHFqSVO8goTrYAFeASysTP OiBGtaQt0xpHEnjFypRbMv MZHeq8njboKOTCtjUjOcW3 97WHJrIDgka2wbu0GnNXLw wCHcv1B5NQKJgiunfGf9tE ahP98aa9Y9MqgfG6xtDISw YIUtX7XoJH8hTWWaKqy3JL V5OJC4QTFxLRQpK0ZiRD6r HHHgsHGuHDq0b8bamNjpZV KyNGO1p9nnJGxvudKvVU0z ra0cmHm8l5vtoaVmGGReIL FubKHONSUkQ1WhxZswDw3c uTy4nEqnUrxgQEM8Nze0DY 8rbp10xut2uMicICUtdvmx CcT0LNakXEBzvdqvWWv7QT toMMCpyHL7IEGatJCaS2Le ADTuWQ2esbv4KHZ2LLqcSB FdQhB8UADnwEOyFYOacYbw FGdfk652RIG7KtDxBT6eV1 Nwb6Y0pS0xfUOkDWArlECi EnJgNHWpcj0oiXSmMJvcn1 WwNIL9blG2oYBedWWlIIQu JJ48Dosxd1OiDadmt0KdP3 0njFT6WJqfd1jzLO1nVfY9 xcJcCHmow6ohbR0dLrD2NR hfPR3sJC2wNIWcnA8pzvev XHBnYnJkcmhlYWRccGdicm GxMa7nkPdkEUZ5BPznL0xj hD4eMuL0IUjsI9lwxC2sJU z5YDgfuNM2BJNeqM1dVL2h xstre0ijIGqzMAvbQGEvph D9yyO1CUAqyGDyP7WohL3m SUGoSR6roxrwc8oiHJF5TV opDUKzERN5WrQmJUPsp6Ar rxc1XpClt6XniTIbGCkkC3 7ym279RAPnaiSyP0hyjBNh gogwqZInnsqgRBmtfyK5TH BmnmQvf8VfONOfAMB0PGdz MIanbSSsEEDmlEbeu8ntB7 RscGFyXHBsYWluXGYxXGZz MjBcbGFuZzEwMzNcaGljaF ooSOfoHpFjQBQdSOezK1hq PoIuT1VhAKIjWjPbpBCoT8 ggVGhpcyByZXBvcnQgbWF5 MKrsO5m9LHDzrmKxvSa9fv WfHmPxACNxBYG4SCquoWTs NFInn9XfcxjkoIKrIi3erI ZxHWOxnC0cKHCvPLHzOJan YA8dkNe0LKLZpYCvkNZxEv VGHDEbQH52bqKgHKEEgjuw a6I4PDnzQZNhn4KxzMVmT3 khj3VkGIPgr15uJX5ha3P4 e9guRTA4KM3br6DjWTIphE UqsHDiMGAwx2Fzshqvp0Ce ZQUlkiNor2OaQOMltjYveK YmHWNhgiByah3ehtRiJPSo MQHrH2PueyoydLupjgAfXV Vroi9xsoUfHAK6AFKQXQYy QQSgm8BydG6rtCPKGVE1lL Ogbm7owqMGhFZqDPLzyy59 HKBxOY1bY1hdGTMyUKPbzg JbiNNrg2RmFSAooFH4pGYi HA7WZlEWa51oSMMpBRLIzs GoYKQzlNynaEJ1pcS4oX4b IChGREEpLlx+IFRoZSBGRE SjCG2kjhHyl2YmbpCbqWpp YTOsmPLlz8AhoLCsj1ExiB dta8FwePPtjFIiVA6pRAEw clxwYXIgVVRNQiBMYWJvcm L0y9TpTKQnZUJlKGV3eKzs nsl9JADazV7jETWuO6ujza tjACfpVIHrr3BceS6vhKRG lJCve3JnpQIuyAQAqPMgWA 5urzEdIKjSLVjMAKA3kiMn SZDoj4EgAOzmZ1vhI08soJ aiuKw7zDF1WBY0lD0vErj+ IFxwYXJccGFyIEFwcHJvcH ItYACymMdquhIkU0DafiIe oW0pdWHwqqLcNU1wOL5dG1 X7uVAoNCWemyHsm4idZKug dmUgYmVlbiByZXZpZXdlZC Gqq7FlPIinEPK4LQlhizAp bmNsdWRpbmcgSCZFLCBTcG ErlHJkKML8SClgciAjcjBd TT2lcK9isOkbbY1xdOEkjE X6wlvnHCGvMYNmdNsdYEQm UA0nrSEtGWKlznLOdUhdqL FoqK9zL1TaECHwECQfyi1c PFZotE1fOGxrt7LedtafIY RvBDDbBXGcufGtkl0eTFQp eJRRWT5ASGhxrONkr8Gfck AsW4aBUAQ5VGUwOjGcLgmg KRUuaZCgdTDeHFOdak59HF HywA4atCypRFIpwH2vpU2y oEahfH1uNfLkXqZiXMcdWX 1qJOYcT3gkmRWgKHBfSUIv P9hqSeEdnN7yyVnpPBryNb LnToUvEMvtCWT4nW== Embedded Images (test code = 6232965391) [facility] METABOLIC PANEL (NA, K, CL, CO2, GLUCOSE, BUN, CREATININE, CA)2021-11-14 21:07:53 Test Item Value Reference Range Interpretation Comments NA (test code = 134 mmol/L 135-145 L [id number]) K (test code = 3.8 mmol/L 3.5-5.0 7596906790) CL (test code = 103 mmol/L 98-108 7241734255) CO2 TOTAL (test code = 28 mmol/L 23-31 7364072059) AGAP (test code = 2-16 3853176256) BUN (test code = 10 mg/dL 7-23 9577798306) GLUCOSE (test code = 86 mg/dL 70-110 6398477665) CREATININE (test code = 0.62 mg/dL 0.60-1.25 0277181171) CALCIUM (test code = 6.9 mg/dL 8.6-10.6 L 4189362397) eGFR (test code = mL/min/1.73m2 1533103631) SHANNA (test code = SHANNA) Association of [...] tests). Lab Interpretation Abnormal (test code = 47868-1) [facility] / [id number] 20:21:22 Test Item Value Reference Range Interpretation Comments PROTIME PATIENT (test See_Comment H [Auto mated message] code = 5964-2) The system [employer] generated this result transmitted ref erence range: 10.1 - 1 2.6 Seconds. The reference range was not used to int erpret this result as normal/abnormal . INR (test code = 6301-6) Nor mal INR <1.1; Warfarin Therap eutic range 2.0 to 3. 0 or 2.5 to 3.5, dep ending upon the indica tions. Lab Interpretation (test Abnormal code = 75826-4) [facility] / [id number] 20:21:22 Test Item Value Reference Range Interpretation Comments PROTIME PATIENT (test See_Comment H [Auto mated message] code = 5964-2) The system [employer] generated this result transmitted ref erence range: 10.1 - 1 2.6 Seconds. The reference range was not used to int erpret this result as normal/abnormal . INR (test code = 6301-6) Nor mal INR <1.1; Warfarin Therap eutic range 2.0 to 3. 0 or 2.5 to 3.5, dep ending upon the indica tions. Lab Interpretation (test Abnormal code = 24388-2) [facility] WITH [id number] 12:16:29 Test Item Value Reference Range Interpretation Comments WBC (test code = See_Comment H [Automated 6690-2) message] The system which generated this result transmit keshav reference range : 4.20 - 10.70 10*3/?L. The reference range was not used to interpret this result as normal/abnormal . RBC (test code = See_Comment L [Automated 789-8) message] The system which generated this result transmit keshav reference range : 4.26 - 5.52 10*6/?L. The reference range was not used to interpret this result as normal/abnormal . HGB (test code = 12.9 g/dL 12.2-16.4 718-7) HCT (test code = 37.2 % 38.4-49.3 L 4544-3) MCV (test code = 88.6 fL 81.7-95.6 787-2) MCH (test code = 30.7 pg 26.1-32.7 785-6) MCHC (test code = 34.7 g/dL 31.2-35.0 786-4) RDW-SD (test code = 42.9 fL 38.5-51.6 43585-3) RDW-CV (test code = 13.2 % 12.1-15.4 788-0) PLT (test code = See_Comment H [Automated 777-3) message] The system which generated this result transmit keshav reference range : 150 - 328 10*3/ ?L. The reference range was not u sed to interpret th is result as normal/abnormal . MPV (test code = 9.4 fL 9.8-13.0 L 01733-9) NRBC/100 WBC (test See_Comment [Automat ed code = 4257034908) message] The system which generated this result transmit keshav reference range : 0.0 - 10.0 /100 WBCs. The reference range was not used to interpret this result as normal/abnormal . NRBC x10^3 (test code <0.01 See_Comment [Auto mated = 6906761565) message] The system which generated this result transmit keshav reference range : 10*3/?L. The reference range was not used to interpret this result as normal/abnormal . GRAN MAT (NEUT) % 78.2 % (test code = 770-8) IMM GRAN % (test code 2.50 % = 8885416229) LYMPH % (test code = 9.9 % 736-9) MONO % (test code = 8.3 % 5905-5) EOS % (test code = 0.8 % 713-8) BASO % (test code = 0.3 % 706-2) GRAN MAT x10^3(ANC) 15.03 10*3/uL 1.99-6.95 H (test code = 8553773400) IMM GRAN x10^3 (test 0.47 10*3/uL 0.00-0.06 H code = 7281363524) LYMPH x10^3 (test code 1.89 10*3/uL 1.09-3.23 = 731-0) MONO x10^3 (test code 1.59 10*3/uL 0.36-1.02 H = 742-7) EOS x10^3 (test code = 0.15 10*3/uL 0.06-0.53 711-2) BASO x10^3 (test code 0.05 10*3/uL 0.01-0.09 = 704-7) TOXIC CHANGES (test Present A code = 803-7) Lab Interpretation Abnormal (test code = 97201-8) [facility] METABOLIC PANEL (NA, K, CL, CO2, GLUCOSE, BUN, CREATININE, CA)2021-11-14 12:01:07 Test Item Value Reference Range Interpretation Comments NA (test code = 132 mmol/L 135-145 L 2562693355) K (test code = 4.7 mmol/L 3.5-5.0 8547166809) CL (test code = 97 mmol/L 98-108 L 8234831943) CO2 TOTAL (test code = 31 mmol/L 23-31 2225332511) AGAP (test code = 2-16 2410955532) BUN (test code = 12 mg/dL 7-23 6453489640) GLUCOSE (test code = 93 mg/dL 70-110 9843494012) CREATININE (test code = 0.70 mg/dL 0.60-1.25 6803366711) CALCIUM (test code = 8.3 mg/dL 8.6-10.6 L 8013438070) eGFR (test code = mL/min/1.73m2 6751050265) SHANNA (test code = SHANNA) Association of [...] tests). Lab Interpretation Abnormal (test code = 19243-5) [facility] Test Item Value Reference Range Interpretation Comments MAGNESIUM (test code = 8528529381) 1.8 mg/dL 1.7-2.4 Lab Interpretation (test code = Normal 47153-5) [facility] 12:[facility]:07 Test Item Value Reference Range Interpretation Comments PHOSPHORUS (test code = 3775648223) 3.7 mg/dL 2.5-5.0 Lab Interpretation (test code = Normal 10011-3) [facility] (NA, K, CL, CO2, GLUCOSE, BUN, CREATININE, CA)2021-11-12 14:15:09 Test Item Value Reference Range Interpretation Comments NA (test code = 132 mmol/L 135-145 L 2223533077) K (test code = 4.3 mmol/L 3.5-5.0 5380135401) CL (test code = 102 mmol/L 98-108 6998036968) CO2 TOTAL (test code = 19 mmol/L 23-31 L 4890646059) AGAP (test code = 2-16 3622122160) BUN (test code = 9 mg/dL 7-23 5749152822) GLUCOSE (test code = 105 mg/dL 70-110 7949683909) CREATININE (test code = 0.65 mg/dL 0.60-1.25 5972518641) CALCIUM (test code = 8.2 mg/dL 8.6-10.6 L 2288237755) eGFR (test code = mL/min/1.73m2 4151367822) SHANNA (test code = SHANNA) Association of [...] tests). Lab Interpretation Abnormal (test code = 98204-1) [facility] 14:15:09 Test Item Value Reference Range Interpretation Comments MAGNESIUM (test code = 6261461340) 1.6 mg/dL 1.7-2.4 L Lab Interpretation (test code = Abnormal 20778-0) [facility] 14:15:09 Test Item Value Reference Range Interpretation Comments PHOSPHORUS (test code = 6961955422) 3.4 mg/dL 2.5-5.0 Lab Interpretation (test code = Normal 28556-1) [facility] [id number] 10:27:04 Test Item Value Reference Range Interpretation Comments WBC (test code = See_Comment H [Automated 5390-2) message] The system which generated this result transmit keshav reference range : 4.20 - 10.70 10*3/?L. The reference range was not used to interpret this result as normal/abnormal . RBC (test code = See_Comment [Automated 789-8) message] The system which generated this result transmit keshav reference range : 4.26 - 5.52 10*6/?L. The reference range was not used to interpret this result as normal/abnormal . HGB (test code = 15.7 g/dL 12.2-16.4 718-7) HCT (test code = 46.3 % 38.4-49.3 4544-3) MCV (test code = 89.9 fL 81.7-95.6 787-2) MCH (test code = 30.5 pg 26.1-32.7 785-6) MCHC (test code = 33.9 g/dL 31.2-35.0 786-4) RDW-SD (test code = 43.8 fL 38.5-51.6 75133-0) RDW-CV (test code = 13.3 % 12.1-15.4 788-0) PLT (test code = See_Comment [Automated 777-3) message] The system which generated this result transmit keshav reference range : 150 - 328 10*3/ ?L. The reference range was not u sed to interpret th is result as normal/abnormal . MPV (test code = 9.3 fL 9.8-13.0 L 53773-6) NRBC/100 WBC (test See_Comment [Automat ed code = 5930190272) message] The system which generated this result transmit keshav reference range : 0.0 - 10.0 /100 WBCs. The reference range was not used to interpret this result as normal/abnormal . NRBC x10^3 (test code <0.01 See_Comment [Auto mated = 8292881175) message] The system which generated this result transmit keshav reference range : 10*3/?L. The reference range was not used to interpret this result as normal/abnormal . GRAN MAT (NEUT) % 68.4 % (test code = 770-8) IMM GRAN % (test code 3.90 % = 4584223502) LYMPH % (test code = 11.1 % 736-9) MONO % (test code = 14.1 % 5905-5) EOS % (test code = 2.0 % 713-8) BASO % (test code = 0.5 % 706-2) GRAN MAT x10^3(ANC) 11.86 10*3/uL 1.99-6.95 H (test code = 4258268969) IMM GRAN x10^3 (test 0.68 10*3/uL 0.00-0.06 H code = 6128213770) LYMPH x10^3 (test code 1.93 10*3/uL 1.09-3.23 = 731-0) MONO x10^3 (test code 2.45 10*3/uL 0.36-1.02 H = 742-7) EOS x10^3 (test code = 0.35 10*3/uL 0.06-0.53 711-2) BASO x10^3 (test code 0.08 10*3/uL 0.01-0.09 = 704-7) KELLIE CELLS (test code 2+ See_Comment A [Auto mated = 0190-9) message] The system which generated this result transmit keshav reference range : (none). The reference range was not used to interpret this result as normal/abnormal . TOXIC CHANGES (test Present A code = 803-7) Lab Interpretation Abnormal (test code = 33402-9) [facility]2022-04-20 07:49:52 Test Item Value Reference Range Interpretation Comments GASTRIN (test code = 112 pg/mL 0-100 H Perform ed By: DON 2333-3) [place] [id number] Director: Leigh Lopes MD Lab Interpretation (test Abnormal code = 79444-8) [place] [address]-04-20 07:49:52 Test Item Value Reference Range Interpretation Comments GASTRIN (test code = 112 pg/mL 0-100 H Perform ed By: DON 2333-3) [address] [id number] Director: Leigh Lopes MD Lab Interpretation (test Abnormal code = 95340-6) [facility] CULTURE [id number] 04:02:00 Test Item Value Reference Range Interpretation Comments Blood Culture-Aerobic No organisms No growth Previo us (test code = 08323-8) isolated prelim inary verified result was Culture In Progress on 11/07/2021 at 02 01 CDTPrevious preliminary verified result was No growth a t 24 hours on 11/07/2021 at 23 01 CDTPrevious preliminary verified result was No growth a t 48 hours on 11/08/2021 at 23 01 CDTPrevious preliminary verified result was No growth a t 72 hours on 11/09/2021 at 23 01 CDT Blood No organisms No growth Previous Culture-Anaerobic isolated preliminar y (test code = 95383-0) verifi ed result was Culture In Progress on 11/07/2021 at 02 01 CDTPrevious preliminary verified result was No growth a t 24 hours on 11/07/2021 at 23 01 CDTPrevious preliminary verified result was No growth a t 48 hours on 11/08/2021 at 23 01 CDTPrevious preliminary verified result was No growth a t 72 hours on 11/09/2021 at 23 01 CDT Lab Interpretation Normal (test code = 90589-9) [facility] CULTURE [id number] 04:02:00 Test Item Value Reference Range Interpretation Comments Blood Culture-Aerobic No organisms No growth Previo us (test code = 73421-7) isolated prelim inary verified result was Culture In Progress on 11/07/2021 at 02 01 CDTPrevious preliminary verified result was No growth a t 24 hours on 11/07/2021 at 23 01 CDTPrevious preliminary verified result was No growth a t 48 hours on 11/08/2021 at 23 01 CDTPrevious preliminary verified result was No growth a t 72 hours on 11/09/2021 at 23 01 CDT Blood No organisms No growth Previous Culture-Anaerobic isolated preliminar y (test code = 97776-0) verifi ed result was Culture In Progress on 11/07/2021 at 02 01 CDTPrevious preliminary verified result was No growth a t 24 hours on 11/07/2021 at 23 CDTPrevious preliminary verified result was No growth a t 48 hours on 11/08/2021 at 23 CDTPrevious preliminary verified result was No growth a t 72 hours on 11/09/2021 at 23 CDT Lab Interpretation Normal (test code = 36266-8) [facility] [id number] 04:02:00 Test Item Value Reference Range Interpretation Comments Blood Culture-Aerobic No organisms No growth Previo us (test code = 97008-0) isolated prelim inary verified result was Culture In Progress on 11/07/2021 at 02 CDTPrevious preliminary verified result was No growth a t 24 hours on 11/07/2021 at 23 CDTPrevious preliminary verified result was No growth a t 48 hours on 11/08/2021 at 17 08 CDTPrevious preliminary verified result was No growth a t 72 hours on 11/09/2021 at 23 01 CDT Blood No organisms No growth Previous Culture-Anaerobic isolated preliminar y (test code = 52861-4) verifi ed result was Culture In Progress on 11/07/2021 at 02 01 CDTPrevious preliminary verified result was No growth a t 24 hours on 11/07/2021 at 23 CDTPrevious preliminary verified result was No growth a t 48 hours on 11/08/2021 at 23 CDTPrevious preliminary verified result was No growth a t 72 hours on 11/09/2021 at 23 01 CDT Lab Interpretation Normal (test code = 49827-2) [facility] (NA, K, CL, CO2, GLUCOSE, BUN, CREATININE, CA)2021-11-11 14:37:32 Test Item Value Reference Range Interpretation Comments NA (test code = 135 mmol/L 135-145 7106450292) K (test code = 3.8 mmol/L 3.5-5.0 7868219871) CL (test code = 103 mmol/L 98-108 1768872089) CO2 TOTAL (test code = 27 mmol/L 23-31 7128709392) AGAP (test code = 2-16 6835111872) BUN (test code = 8 mg/dL 7-23 9828175328) GLUCOSE (test code = 86 mg/dL 70-110 5883496258) CREATININE (test code = 0.75 mg/dL 0.60-1.25 6803208279) CALCIUM (test code = 7.7 mg/dL 8.6-10.6 L 5497364376) eGFR (test code = mL/min/1.73m2 7049897906) SHANNA (test code = SHANNA) Association of [...] tests). Lab Interpretation Abnormal (test code = 94162-1) [facility]22-[facility] 14:37:32 Test Item Value Reference Range Interpretation Comments MAGNESIUM (test code = 0257040879) 1.7 mg/dL 1.7-2.4 Lab Interpretation (test code = Normal 64550-9) [facility] 14:37:32 Test Item Value Reference Range Interpretation Comments PHOSPHORUS (test code = 1401098320) 3.0 mg/dL 2.5-5.0 Lab Interpretation (test code = Normal 28587-1) [facility] WITH [id number] 14:10:27 Test Item Value Reference Range Interpretation Comments WBC (test code = See_Comment H [Automated 3590-2) message] The system which generated this result transmit keshav reference range : 4.20 - 10.70 10*3/?L. The reference range was not used to interpret this result as normal/abnormal . RBC (test code = See_Comment [Automated 789-8) message] The system which generated this result transmit keshav reference range : 4.26 - 5.52 10*6/?L. The reference range was not used to interpret this result as normal/abnormal . HGB (test code = 13.2 g/dL 12.2-16.4 718-7) HCT (test code = 40.3 % 38.4-49.3 4544-3) MCV (test code = 91.4 fL 81.7-95.6 787-2) MCH (test code = 29.9 pg 26.1-32.7 785-6) MCHC (test code = 32.8 g/dL 31.2-35.0 786-4) RDW-SD (test code = 43.5 fL 38.5-51.6 27689-9) RDW-CV (test code = 13.1 % 12.1-15.4 788-0) PLT (test code = See_Comment [Automated 777-3) message] The system which generated this result transmit keshav reference range : 150 - 328 10*3/ ?L. The reference range was not u sed to interpret th is result as normal/abnormal . MPV (test code = 9.6 fL 9.8-13.0 L 27388-4) NRBC/100 WBC (test See_Comment [Automat ed code = 0266414210) message] The system which generated this result transmit keshav reference range : 0.0 - 10.0 /100 WBCs. The reference range was not used to interpret this result as normal/abnormal . NRBC x10^3 (test code <0.01 See_Comment [Auto mated = 4592295783) message] The system which generated this result transmit keshav reference range : 10*3/?L. The reference range was not used to interpret this result as normal/abnormal . GRAN MAT (NEUT) % 76.2 % (test code = 770-8) IMM GRAN % (test code 1.40 % = 7512992993) LYMPH % (test code = 9.2 % 736-9) MONO % (test code = 10.3 % 5905-5) EOS % (test code = 2.7 % 713-8) BASO % (test code = 0.2 % 706-2) GRAN MAT x10^3(ANC) 12.08 10*3/uL 1.99-6.95 H (test code = 5203828214) IMM GRAN x10^3 (test 0.23 10*3/uL 0.00-0.06 H code = 2877085086) LYMPH x10^3 (test code 1.46 10*3/uL 1.09-3.23 = 731-0) MONO x10^3 (test code 1.64 10*3/uL 0.36-1.02 H = 742-7) EOS x10^3 (test code = 0.43 10*3/uL 0.06-0.53 711-2) BASO x10^3 (test code 0.03 10*3/uL 0.01-0.09 = 704-7) BANDS (test code = Increased A 3365697301) Lab Interpretation Abnormal (test code = 07655-5) [facility]ANAEROBIC) 2021-11-11 12:29:44 Test Item Value Reference Range Interpretation Comments BODY FLUID CULT No organisms isolated (test code = 611-4) Gram stain (test Occasional (Rare) code = 664-3) Mononuclear cells [facility] FLUID CULTURE(AEROBIC/ANAEROBIC) 2021-11-11 12:29:44 Test Item Value Reference Range Interpretation Comments BODY FLUID CULT No organisms isolated (test code = 611-4) Gram stain (test Occasional (Rare) code = 664-3) Mononuclear cells [facility]+COOX+NA+K+GLU+CA2+2021-11-11 03:18:23 Test Item Value Reference Range Interpretation Comments PH (test code = 2) 7.35-7.45 L PCO2 (test code = See_Comment [Automate d message] 9368231237) The system [employer] generated this result transmit keshav reference range : 35 - 45 mmHg. The reference range was not used to interpret this result as normal/abnormal . PO2 (test code = See_Comment H [Automated message] 5483013504) The system [employer] generated this result transmit keshav reference range : 80 - 100 mmHg. The reference range was not used to interpret this result as normal/abnormal . HCO3 (test code = See_Comment L [Automate d message] 0978311961) The system [employer] generated this result transmit keshav reference range : 22 - 26 mEq/L. The reference range was not used to interpret this result as normal/abnormal . BE (test code = See_Comment L [Automated message] 5905999729) The system [employer] generated this result transmit keshav reference range : -3.0 - 3.0 mEq/ L. The reference r waqas was not used to interpret this result as normal/abnormal . THB (test code = 13.2 g/dL 13.5-18.0 L 8512406583) %O2HB (test code = 98.7 % 94.0-99.0 4592942703) %COHB ART (test code = 0.4 % 0.0-1.5 1293888824) %METHB ART (test code = 0.1 % 0.4-1.5 L 4131896512) VOL%O2 ART (test code = 18.9 % 15.0-23.0 QUES 4063395616) NA (test code = 129 mmol/L 135-145 L 5499401504) K+ (test code = 4.2 mmol/L 3.5-5.0 7436457028) AC CA IONZ (test code = 4.10 mg/dL 4.50-5.30 L 0860383806) GLUCOSE (test code = 154 mg/dL 70-110 H 4619733734) Lab Interpretation Abnormal (test code = 82557-2) [facility]+NA+K+GLU+CA2+2021-11-11 03:17:43 Test Item Value Reference Range Interpretation Comments PH (test code = 2) 7.35-7.45 L PCO2 (test code = See_Comment [Automate d message] 0831807226) The system [employer] generated this result transmit keshav reference range : 35 - 45 mmHg. The reference range was not used to interpret this result as normal/abnormal . PO2 (test code = See_Comment H [Automated message] 8978315568) The system [employer] generated this result transmit keshav reference range : 80 - 100 mmHg. The reference range was not used to interpret this result as normal/abnormal . HCO3 (test code = See_Comment L [Automate d message] 5565129381) The system [employer] generated this result transmit keshav reference range : 22 - 26 mEq/L. The reference range was not used to interpret this result as normal/abnormal . BE (test code = See_Comment L [Automated message] 2919203147) The system [employer] generated this result transmit keshav reference range : -3.0 - 3.0 mEq/ L. The reference r waqas was not used to interpret this result as normal/abnormal . THB (test code = 11.7 g/dL 13.5-18.0 L 6534234654) %O2HB (test code = 98.9 % 94.0-99.0 0343622522) %COHB ART (test code = 0.0 % 0.0-1.5 0630198621) %METHB ART (test code = 0.2 % 0.4-1.5 L 0879390889) VOL%O2 ART (test code = 16.8 % 15.0-23.0 QUES 8526840552) NA (test code = 130 mmol/L 135-145 L 7941563201) K+ (test code = 4.0 mmol/L 3.5-5.0 1002512599) AC CA IONZ (test code = 4.80 mg/dL 4.50-5.30 3009416172) GLUCOSE (test code = 119 mg/dL 70-110 H 6771843216) Lab Interpretation Abnormal (test code = 28811-2) [facility]+NA+K+GLU+CA2+2021-11-11 03:17:43 Test Item Value Reference Range Interpretation Comments PH (test code = 2) 7.35-7.45 L PCO2 (test code = See_Comment [Automate d message] 1862303713) The system [employer] generated this result transmit keshav reference range : 35 - 45 mmHg. The reference range was not used to interpret this result as normal/abnormal . PO2 (test code = See_Comment H [Automated message] 8528871472) The system [employer] generated this result transmit keshav reference range : 80 - 100 mmHg. The reference range was not used to interpret this result as normal/abnormal . HCO3 (test code = See_Comment L [Automate d message] 6057248282) The system [employer] generated this result transmit keshav reference range : 22 - 26 mEq/L. The reference range was not used to interpret this result as normal/abnormal . BE (test code = See_Comment L [Automated message] 0430566566) The system [employer] generated this result transmit keshav reference range : -3.0 - 3.0 mEq/ L. The reference r waqas was not used to interpret this result as normal/abnormal . THB (test code = 11.7 g/dL 13.5-18.0 L 1558949562) %O2HB (test code = 98.9 % 94.0-99.0 6190603492) %COHB ART (test code = 0.0 % 0.0-1.5 9887526893) %METHB ART (test code = 0.2 % 0.4-1.5 L 2544233023) VOL%O2 ART (test code = 16.8 % 15.0-23.0 QUES 5596603193) NA (test code = 130 mmol/L 135-145 L 0087645419) K+ (test code = 4.0 mmol/L 3.5-5.0 6974135427) AC CA IONZ (test code = 4.80 mg/dL 4.50-5.30 5957569046) GLUCOSE (test code = 119 mg/dL 70-110 H 1131249376) Lab Interpretation Abnormal (test code = 51965-5) [facility] WITH [id number] 10:22:39 Test Item Value Reference Range Interpretation Comments WBC (test code = See_Comment H [Automated 6690-2) message] The system which generated this result transmit keshav reference range : 4.20 - 10.70 10*3/?L. The reference range was not used to interpret this result as normal/abnormal . RBC (test code = See_Comment L [Automated 789-8) message] The system which generated this result transmit keshav reference range : 4.26 - 5.52 10*6/?L. The reference range was not used to interpret this result as normal/abnormal . HGB (test code = 12.1 g/dL 12.2-16.4 L 718-7) HCT (test code = 36.6 % 38.4-49.3 L 4544-3) MCV (test code = 92.7 fL 81.7-95.6 787-2) MCH (test code = 30.6 pg 26.1-32.7 785-6) MCHC (test code = 33.1 g/dL 31.2-35.0 786-4) RDW-SD (test code = 44.7 fL 38.5-51.6 17873-4) RDW-CV (test code = 13.0 % 12.1-15.4 788-0) PLT (test code = See_Comment [Automated 777-3) message] The system which generated this result transmit keshav reference range : 150 - 328 10*3/ ?L. The reference range was not u sed to interpret th is result as normal/abnormal . MPV (test code = 9.9 fL 9.8-13.0 37678-3) NRBC/100 WBC (test See_Comment [Automat ed code = 9900522867) message] The system which generated this result transmit keshav reference range : 0.0 - 10.0 /100 WBCs. The reference range was not used to interpret this result as normal/abnormal . NRBC x10^3 (test code <0.01 See_Comment [Auto mated = 0451792412) message] The system which generated this result transmit keshav reference range : 10*3/?L. The reference range was not used to interpret this result as normal/abnormal . GRAN MAT (NEUT) % 87.4 % (test code = 770-8) IMM GRAN % (test code 0.50 % = 8326316685) LYMPH % (test code = 7.3 % 736-9) MONO % (test code = 3.7 % 5905-5) EOS % (test code = 0.9 % 713-8) BASO % (test code = 0.2 % 706-2) GRAN MAT x10^3(ANC) 16.95 10*3/uL 1.99-6.95 H (test code = 3513105076) IMM GRAN x10^3 (test 0.09 10*3/uL 0.00-0.06 H code = 9875668729) LYMPH x10^3 (test code 1.42 10*3/uL 1.09-3.23 = 731-0) MONO x10^3 (test code 0.71 10*3/uL 0.36-1.02 = 742-7) EOS x10^3 (test code = 0.17 10*3/uL 0.06-0.53 711-2) BASO x10^3 (test code 0.03 10*3/uL 0.01-0.09 = 704-7) KELLIE CELLS (test code 2+ See_Comment A [Auto mated = 7720-9) message] The system which generated this result transmit keshav reference range : (none). The reference range was not used to interpret this result as normal/abnormal . BANDS (test code = Increased A 9598859910) Lab Interpretation Abnormal (test code = 81719-5) [facility] WITH [id number] 10:22:39 Test Item Value Reference Range Interpretation Comments WBC (test code = See_Comment H [Automated 5390-2) message] The system which generated this result transmit keshav reference range : 4.20 - 10.70 10*3/?L. The reference range was not used to interpret this result as normal/abnormal . RBC (test code = See_Comment L [Automated 999-8) message] The system which generated this result transmit keshav reference range : 4.26 - 5.52 10*6/?L. The reference range was not used to interpret this result as normal/abnormal . HGB (test code = 12.1 g/dL 12.2-16.4 L 718-7) HCT (test code = 36.6 % 38.4-49.3 L 4544-3) MCV (test code = 92.7 fL 81.7-95.6 787-2) MCH (test code = 30.6 pg 26.1-32.7 785-6) MCHC (test code = 33.1 g/dL 31.2-35.0 786-4) RDW-SD (test code = 44.7 fL 38.5-51.6 46283-3) RDW-CV (test code = 13.0 % 12.1-15.4 788-0) PLT (test code = See_Comment [Automated 777-3) message] The system which generated this result transmit keshav reference range : 150 - 328 10*3/ ?L. The reference range was not u sed to interpret th is result as normal/abnormal . MPV (test code = 9.9 fL 9.8-13.0 73838-4) NRBC/100 WBC (test See_Comment [Automat ed code = 7550773828) message] The system which generated this result transmit keshav reference range : 0.0 - 10.0 /100 WBCs. The reference range was not used to interpret this result as normal/abnormal . NRBC x10^3 (test code <0.01 See_Comment [Auto mated = 9437757660) message] The system which generated this result transmit keshav reference range : 10*3/?L. The reference range was not used to interpret this result as normal/abnormal . GRAN MAT (NEUT) % 87.4 % (test code = 770-8) IMM GRAN % (test code 0.50 % = 1822940248) LYMPH % (test code = 7.3 % 736-9) MONO % (test code = 3.7 % 5905-5) EOS % (test code = 0.9 % 713-8) BASO % (test code = 0.2 % 706-2) GRAN MAT x10^3(ANC) 16.95 10*3/uL 1.99-6.95 H (test code = 1834418874) IMM GRAN x10^3 (test 0.09 10*3/uL 0.00-0.06 H code = 7236599803) LYMPH x10^3 (test code 1.42 10*3/uL 1.09-3.23 = 731-0) MONO x10^3 (test code 0.71 10*3/uL 0.36-1.02 = 742-7) EOS x10^3 (test code = 0.17 10*3/uL 0.06-0.53 711-2) BASO x10^3 (test code 0.03 10*3/uL 0.01-0.09 = 704-7) KELLIE CELLS (test code 2+ See_Comment A [Auto mated = 6518-9) message] The system which generated this result transmit keshav reference range : (none). The reference range was not used to interpret this result as normal/abnormal . BANDS (test code = Increased A 9963650633) Lab Interpretation Abnormal (test code = 98868-1) [facility] METABOLIC PANEL (NA, K, CL, CO2, GLUCOSE, BUN, CREATININE, CA)2021-11-10 10:05:11 Test Item Value Reference Range Interpretation Comments NA (test code = 133 mmol/L 135-145 L 4457549809) K (test code = 4.0 mmol/L 3.5-5.0 9063646627) CL (test code = 105 mmol/L 98-108 0252046937) CO2 TOTAL (test code = 24 mmol/L 23-31 8232208102) AGAP (test code = 2-16 7541344974) BUN (test code = 11 mg/dL 7-23 5726872698) GLUCOSE (test code = 86 mg/dL 70-110 1467668709) CREATININE (test code = 0.78 mg/dL 0.60-1.25 1027342225) CALCIUM (test code = 7.5 mg/dL 8.6-10.6 L 6817204120) eGFR (test code = mL/min/1.73m2 1420515119) SHANNA (test code = SHANNA) Association of [...] tests). Lab Interpretation Abnormal (test code = 83205-8) [facility] 10:05:11 Test Item Value Reference Range Interpretation Comments MAGNESIUM (test code = 1136344491) 2.0 mg/dL 1.7-2.4 Lab Interpretation (test code = Normal 47128-4) [facility] 10:05:11 Test Item Value Reference Range Interpretation Comments PHOSPHORUS (test code = 9851203827) 1.9 mg/dL 2.5-5.0 L Lab Interpretation (test code = Abnormal 47603-0) [facility] (NA, K, CL, CO2, GLUCOSE, BUN, CREATININE, CA)2021-11-10 10:05:11 Test Item Value Reference Range Interpretation Comments NA (test code = 133 mmol/L 135-145 L 7955541475) K (test code = 4.0 mmol/L 3.5-5.0 0876305826) CL (test code = 105 mmol/L 98-108 2899222318) CO2 TOTAL (test code = 24 mmol/L 23-31 7260917635) AGAP (test code = 2-16 2169734505) BUN (test code = 11 mg/dL 7-23 8805590145) GLUCOSE (test code = 86 mg/dL 70-110 2494528392) CREATININE (test code = 0.78 mg/dL 0.60-1.25 1022315130) CALCIUM (test code = 7.5 mg/dL 8.6-10.6 L 9395573107) eGFR (test code = mL/min/1.73m2 2427673880) SHANNA (test code = SHANNA) Association of [...] tests). Lab Interpretation Abnormal (test code = 16937-4) [facility] 10:05:11 Test Item Value Reference Range Interpretation Comments MAGNESIUM (test code = 3100367458) 2.0 mg/dL 1.7-2.4 Lab Interpretation (test code = Normal 41194-2) [facility] 10:05:11 Test Item Value Reference Range Interpretation Comments PHOSPHORUS (test code = 1858024414) 1.9 mg/dL 2.5-5.0 L Lab Interpretation (test code = Abnormal 15939-7) [facility] WITH [id number] 10:38:15 Test Item Value Reference Range Interpretation Comments WBC (test code = See_Comment H [Automated 6690-2) message] The system which generated this result transmitted reference range : 4.20 - 10.70 10*3/?L. The reference range was not used to interpret this result as normal/abnormal . RBC (test code = See_Comment L [Automated 789-8) message] The system which generated this result transmitted reference range : 4.26 - 5.52 10*6/?L. The reference range was not used to interpret this result as normal/abnormal . HGB (test code = 11.3 g/dL 12.2-16.4 L 718-7) HCT (test code = 33.6 % 38.4-49.3 L 4544-3) MCV (test code = 91.8 fL 81.7-95.6 787-2) MCH (test code = 30.9 pg 26.1-32.7 785-6) MCHC (test code = 33.6 g/dL 31.2-35.0 786-4) RDW-SD (test code = 43.9 fL 38.5-51.6 88262-3) RDW-CV (test code = 13.1 % 12.1-15.4 788-0) PLT (test code = See_Comment [Automated 777-3) message] The system which generated this result transmitted reference range : 150 - 328 10*3/?L. The reference range was not used to interpret this result as normal/abnormal . MPV (test code = 10.3 fL 9.8-13.0 85981-8) NRBC/100 WBC (test See_Comment [Automat ed code = 7532110747) message] The system which generated this result transmitted reference range : 0.0 - 10.0 /100 WBCs. The reference range was not used to interpret this result as normal/abnormal . NRBC x10^3 (test code <0.01 See_Comment [Auto mated = 7305230630) message] The system which generated this result transmitted reference range : 10*3/?L. The reference range was not used to interpret this result as normal/abnormal . GRAN MAT (NEUT) % 88.8 % (test code = 770-8) IMM GRAN % (test code 1.00 % = 6395517685) LYMPH % (test code = 7.5 % 736-9) MONO % (test code = 1.9 % 5905-5) EOS % (test code = 0.7 % 713-8) BASO % (test code = 0.1 % 706-2) GRAN MAT x10^3(ANC) 13.52 10*3/uL 1.99-6.95 H (test code = 3909619818) IMM GRAN x10^3 (test 0.16 10*3/uL 0.00-0.06 H code = 8418439814) LYMPH x10^3 (test 1.15 10*3/uL 1.09-3.23 code = 731-0) MONO x10^3 (test code 0.29 10*3/uL 0.36-1.02 L = 742-7) EOS x10^3 (test code 0.11 10*3/uL 0.06-0.53 = 711-2) BASO x10^3 (test code <0.03 0.01-0.09 = 704-7) BANDS (test code = MARKED INCREASED A 3724447045) Lab Interpretation Abnormal (test code = 47696-0) [facility] WITH [id number] 10:38:15 Test Item Value Reference Range Interpretation Comments WBC (test code = See_Comment H [Automated 8490-2) message] The system which generated this result transmitted reference range : 4.20 - 10.70 10*3/?L. The reference range was not used to interpret this result as normal/abnormal . RBC (test code = See_Comment L [Automated 199-8) message] The system which generated this result transmitted reference range : 4.26 - 5.52 10*6/?L. The reference range was not used to interpret this result as normal/abnormal . HGB (test code = 11.3 g/dL 12.2-16.4 L 718-7) HCT (test code = 33.6 % 38.4-49.3 L 4544-3) MCV (test code = 91.8 fL 81.7-95.6 787-2) MCH (test code = 30.9 pg 26.1-32.7 785-6) MCHC (test code = 33.6 g/dL 31.2-35.0 786-4) RDW-SD (test code = 43.9 fL 38.5-51.6 57638-6) RDW-CV (test code = 13.1 % 12.1-15.4 788-0) PLT (test code = See_Comment [Automated 777-3) message] The system which generated this result transmitted reference range : 150 - 328 10*3/?L. The reference range was not used to interpret this result as normal/abnormal . MPV (test code = 10.3 fL 9.8-13.0 97888-1) NRBC/100 WBC (test See_Comment [Automat ed code = 4730431317) message] The system which generated this result transmitted reference range : 0.0 - 10.0 /100 WBCs. The reference range was not used to interpret this result as normal/abnormal . NRBC x10^3 (test code <0.01 See_Comment [Auto mated = 8772059586) message] The system which generated this result transmitted reference range : 10*3/?L. The reference range was not used to interpret this result as normal/abnormal . GRAN MAT (NEUT) % 88.8 % (test code = 770-8) IMM GRAN % (test code 1.00 % = 7370947934) LYMPH % (test code = 7.5 % 736-9) MONO % (test code = 1.9 % 5905-5) EOS % (test code = 0.7 % 713-8) BASO % (test code = 0.1 % 706-2) GRAN MAT x10^3(ANC) 13.52 10*3/uL 1.99-6.95 H (test code = 9415501037) IMM GRAN x10^3 (test 0.16 10*3/uL 0.00-0.06 H code = 4728634401) LYMPH x10^3 (test 1.15 10*3/uL 1.09-3.23 code = 731-0) MONO x10^3 (test code 0.29 10*3/uL 0.36-1.02 L = 742-7) EOS x10^3 (test code 0.11 10*3/uL 0.06-0.53 = 711-2) BASO x10^3 (test code <0.03 0.01-0.09 = 704-7) BANDS (test code = MARKED INCREASED A 5165992451) Lab Interpretation Abnormal (test code = 18602-8) [facility] 10:21:59 Test Item Value Reference Range Interpretation Comments MAGNESIUM (test code = 9491320869) 2.5 mg/dL 1.7-2.4 H Lab Interpretation (test code = Abnormal 58840-0) [facility] 10:21:59 Test Item Value Reference Range Interpretation Comments PHOSPHORUS (test code = 0881122817) 1.2 mg/dL 2.5-5.0 L Lab Interpretation (test code = Abnormal 87267-3) [facility]22-[facility]-17 10:21:59 Test Item Value Reference Range Interpretation Comments MAGNESIUM (test code = 6886233066) 2.5 mg/dL 1.7-2.4 H Lab Interpretation (test code = Abnormal 05024-2) [facility] 10:21:59 Test Item Value Reference Range Interpretation Comments PHOSPHORUS (test code = 1962411754) 1.2 mg/dL 2.5-5.0 L Lab Interpretation (test code = Abnormal 64579-4) [facility] (NA, K, CL, CO2, GLUCOSE, BUN, CREATININE, CA)2021-11-09 10:21:58 Test Item Value Reference Range Interpretation Comments NA (test code = 135 mmol/L 135-145 1782037917) K (test code = 3.9 mmol/L 3.5-5.0 7812714004) CL (test code = 108 mmol/L 98-108 3643148713) CO2 TOTAL (test code = 23 mmol/L 23-31 5121771077) AGAP (test code = 2-16 6237300958) BUN (test code = 16 mg/dL 7-23 0579466910) GLUCOSE (test code = 112 mg/dL 70-110 H 9600582943) CREATININE (test code = 0.92 mg/dL 0.60-1.25 9307702225) CALCIUM (test code = 7.2 mg/dL 8.6-10.6 L 6485822776) eGFR (test code = mL/min/1.73m2 5453899388) SHANNA (test code = SHANNA) Association of [...] tests). Lab Interpretation Abnormal (test code = 35882-7) [facility] METABOLIC PANEL (NA, K, CL, CO2, GLUCOSE, BUN, CREATININE, CA)2021-11-09 10:21:58 Test Item Value Reference Range Interpretation Comments NA (test code = 135 mmol/L 135-145 [id number]) K (test code = 3.9 mmol/L 3.5-5.0 5374879273) CL (test code = 108 mmol/L 98-108 6515953325) CO2 TOTAL (test code = 23 mmol/L 23-31 5626222546) AGAP (test code = 2-16 9104727536) BUN (test code = 16 mg/dL 7-23 0443042068) GLUCOSE (test code = 112 mg/dL 70-110 H 1871184783) CREATININE (test code = 0.92 mg/dL 0.60-1.25 1003838255) CALCIUM (test code = 7.2 mg/dL 8.6-10.6 L 4673013961) eGFR (test code = mL/min/1.73m2 [id number]) SHANNA (test code = SHANNA) Association of [...] tests). Lab Interpretation Abnormal (test code = 21008-1) [facility] [id number] 19:22:47 Test Item Value Reference Range Interpretation Comments PH (test code = 2) 7.35-7.45 PCO2 (test code = See_Comment L [Automate d [id number]) message] The sy stem which generated this result transmitted reference range : 35 - 45 mmHg. The reference range was not used to interpret this result as normal/abnormal . PO2 (test code = See_Comment L [Automated 6813990790) message] The sy stem which generated this result transmitted reference range : 80 - 100 mmHg. The reference range was not used to interpret this result as normal/abnormal . HCO3 (test code = See_Comment [Automate d 9004972629) message] The sy stem which generated this result transmitted reference range : 22 - 26 mEq/L. The reference range was not used to interpret this result as normal/abnormal . BE (test code = See_Comment [Automated 0075236824) message] The sy stem which generated this result transmitted reference range : -3.0 - 3.0 mEq/ L. The reference r waqas was not used to interpret this result as normal/abnormal . THB (test code = 12.7 g/dL 13.5-18.0 L 1692263815) %O2HB (test code = 95.1 % 94.0-99.0 8965996055) %COHB ART (test code = 0.1 % 0.0-1.5 8588810843) %METHB ART (test code = 0.3 % 0.4-1.5 L 0764692471) VOL%O2 ART (test code = 17.0 % 15.0-23.0 5329828136) NA (test code = 133 mmol/L 135-145 L 5266509247) K+ (test code = 3.9 mmol/L 3.5-5.0 2059046997) AC CA IONZ (test code = 4.50 mg/dL 4.50-5.30 6923031389) GLUCOSE (test code = 113 mg/dL 70-110 H 2126638432) LACTIC ACID (test code 1.32 mmol/L 0.50-2.20 = 6718548363) Lab Interpretation Abnormal (test code = 32106-4) [facility] [id number] 19:22:47 Test Item Value Reference Range Interpretation Comments PH (test code = 2) 7.35-7.45 PCO2 (test code = See_Comment L [Automate d 2756324118) message] The sy stem which generated this result transmitted reference range : 35 - 45 mmHg. The reference range was not used to interpret this result as normal/abnormal . PO2 (test code = See_Comment L [Automated 7815065278) message] The sy stem which generated this result transmitted reference range : 80 - 100 mmHg. The reference range was not used to interpret this result as normal/abnormal . HCO3 (test code = See_Comment [Automate d 0462993202) message] The sy stem which generated this result transmitted reference range : 22 - 26 mEq/L. The reference range was not used to interpret this result as normal/abnormal . BE (test code = See_Comment [Automated 1924825844) message] The sy stem which generated this result transmitted reference range : -3.0 - 3.0 mEq/ L. The reference r waqas was not used to interpret this result as normal/abnormal . THB (test code = 12.7 g/dL 13.5-18.0 L 1108076032) %O2HB (test code = 95.1 % 94.0-99.0 4285416009) %COHB ART (test code = 0.1 % 0.0-1.5 2364687735) %METHB ART (test code = 0.3 % 0.4-1.5 L 1746556094) VOL%O2 ART (test code = 17.0 % 15.0-23.0 5113017654) NA (test code = 133 mmol/L 135-145 L 7362267246) K+ (test code = 3.9 mmol/L 3.5-5.0 1259839512) AC CA IONZ (test code = 4.50 mg/dL 4.50-5.30 8237851640) GLUCOSE (test code = 113 mg/dL 70-110 H 9322967341) LACTIC ACID (test code 1.32 mmol/L 0.50-2.20 = 9196339435) Lab Interpretation Abnormal (test code = 43611-5) [facility] [id number] 19:22:47 Test Item Value Reference Range Interpretation Comments PH (test code = 2) 7.35-7.45 PCO2 (test code = See_Comment L [Automate d 4301721378) message] The sy stem which generated this result transmitted reference range : 35 - 45 mmHg. The reference range was not used to interpret this result as normal/abnormal . PO2 (test code = See_Comment L [Automated 6884255221) message] The sy stem which generated this result transmitted reference range : 80 - 100 mmHg. The reference range was not used to interpret this result as normal/abnormal . HCO3 (test code = See_Comment [Automate d 7202036687) message] The sy stem which generated this result transmitted reference range : 22 - 26 mEq/L. The reference range was not used to interpret this result as normal/abnormal . BE (test code = See_Comment [Automated 1026574326) message] The sy stem which generated this result transmitted reference range : -3.0 - 3.0 mEq/ L. The reference r waqas was not used to interpret this result as normal/abnormal . THB (test code = 12.7 g/dL 13.5-18.0 L 4241361726) %O2HB (test code = 95.1 % 94.0-99.0 2026006393) %COHB ART (test code = 0.1 % 0.0-1.5 1938244684) %METHB ART (test code = 0.3 % 0.4-1.5 L 2036543713) VOL%O2 ART (test code = 17.0 % 15.0-23.0 7488370212) NA (test code = 133 mmol/L 135-145 L 9949335962) K+ (test code = 3.9 mmol/L 3.5-5.0 5450083819) AC CA IONZ (test code = 4.50 mg/dL 4.50-5.30 0853929279) GLUCOSE (test code = 113 mg/dL 70-110 H 3424542290) LACTIC ACID (test code 1.32 mmol/L 0.50-2.20 = 9760849158) Lab Interpretation Abnormal (test code = 36954-2) [facility] [id number] 16:36:32 Test Item Value Reference Range Interpretation Comments PH (test code = 2) 7.35-7.45 PCO2 (test code = See_Comment L [Automate d 4899777666) message] The sy stem which generated this result transmitted reference range : 35 - 45 mmHg. The reference range was not used to interpret this result as normal/abnormal . PO2 (test code = See_Comment H [Automated 1980292028) message] The sy stem which generated this result transmitted reference range : 80 - 100 mmHg. The reference range was not used to interpret this result as normal/abnormal . HCO3 (test code = See_Comment [Automate d 4462727555) message] The sy stem which generated this result transmitted reference range : 22 - 26 mEq/L. The reference range was not used to interpret this result as normal/abnormal . BE (test code = See_Comment [Automated 3052004652) message] The sy stem which generated this result transmitted reference range : -3.0 - 3.0 mEq/ L. The reference r waqas was not used to interpret this result as normal/abnormal . THB (test code = 12.7 g/dL 13.5-18.0 L 2881096618) %O2HB (test code = 98.3 % 94.0-99.0 9419931143) %COHB ART (test code = 0.3 % 0.0-1.5 9215776435) %METHB ART (test code = 0.3 % 0.4-1.5 L 8463874115) VOL%O2 ART (test code = 17.8 % 15.0-23.0 8115306876) NA (test code = 134 mmol/L 135-145 L 0449350116) K+ (test code = 4.3 mmol/L 3.5-5.0 3571166835) AC CA IONZ (test code = 4.50 mg/dL 4.50-5.30 6269167505) GLUCOSE (test code = 127 mg/dL 70-110 H 9159418780) LACTIC ACID (test code 1.87 mmol/L 0.50-2.20 = 4605199518) Lab Interpretation Abnormal (test code = 58685-8) [facility] [id number] 16:36:32 Test Item Value Reference Range Interpretation Comments PH (test code = 2) 7.35-7.45 PCO2 (test code = See_Comment L [Automate d 8432914633) message] The sy stem which generated this result transmitted reference range : 35 - 45 mmHg. The reference range was not used to interpret this result as normal/abnormal . PO2 (test code = See_Comment H [Automated 3439239941) message] The sy stem which generated this result transmitted reference range : 80 - 100 mmHg. The reference range was not used to interpret this result as normal/abnormal . HCO3 (test code = See_Comment [Automate d 1604661651) message] The sy stem which generated this result transmitted reference range : 22 - 26 mEq/L. The reference range was not used to interpret this result as normal/abnormal . BE (test code = See_Comment [Automated 2558404510) message] The sy stem which generated this result transmitted reference range : -3.0 - 3.0 mEq/ L. The reference r waqas was not used to interpret this result as normal/abnormal . THB (test code = 12.7 g/dL 13.5-18.0 L 5892322856) %O2HB (test code = 98.3 % 94.0-99.0 5305450034) %COHB ART (test code = 0.3 % 0.0-1.5 4106226518) %METHB ART (test code = 0.3 % 0.4-1.5 L 9139040068) VOL%O2 ART (test code = 17.8 % 15.0-23.0 7877700428) NA (test code = 134 mmol/L 135-145 L 3829902265) K+ (test code = 4.3 mmol/L 3.5-5.0 6383112482) AC CA IONZ (test code = 4.50 mg/dL 4.50-5.30 6077401165) GLUCOSE (test code = 127 mg/dL 70-110 H 7938862313) LACTIC ACID (test code 1.87 mmol/L 0.50-2.20 = 7546154219) Lab Interpretation Abnormal (test code = 99930-8) [facility] [id number] 13:00:16 Test Item Value Reference Range Interpretation Comments PH (test code = 2) 7.35-7.45 PCO2 (test code = See_Comment [Automate d 0706991845) message] The sy stem which generated this result transmitted reference range : 35 - 45 mmHg. The reference range was not used to interpret this result as normal/abnormal . PO2 (test code = See_Comment H [Automated 0030163952) message] The sy stem which generated this result transmitted reference range : 80 - 100 mmHg. The reference range was not used to interpret this result as normal/abnormal . HCO3 (test code = See_Comment L [Automate d 7919545798) message] The sy stem which generated this result transmitted reference range : 22 - 26 mEq/L. The reference range was not used to interpret this result as normal/abnormal . BE (test code = See_Comment L [Automated 9731394036) message] The sy stem which generated this result transmitted reference range : -3.0 - 3.0 mEq/ L. The reference r waqas was not used to interpret this result as normal/abnormal . THB (test code = 12.5 g/dL 13.5-18.0 L 8330500782) %O2HB (test code = 98.6 % 94.0-99.0 6584914291) %COHB ART (test code = 0.3 % 0.0-1.5 0497129777) %METHB ART (test code = 0.1 % 0.4-1.5 L 5720383820) VOL%O2 ART (test code = 17.6 % 15.0-23.0 8657552842) NA (test code = 131 mmol/L 135-145 L 0184807297) K+ (test code = 4.1 mmol/L 3.5-5.0 7442499532) AC CA IONZ (test code = 4.70 mg/dL 4.50-5.30 9770351540) GLUCOSE (test code = 134 mg/dL 70-110 H 8193037488) LACTIC ACID (test code 1.99 mmol/L 0.50-2.20 = 2690961409) Lab Interpretation Abnormal (test code = 31826-2) [facility] [id number] 13:00:16 Test Item Value Reference Range Interpretation Comments PH (test code = 2) 7.35-7.45 PCO2 (test code = See_Comment [Automate d 7698447422) message] The sy stem which generated this result transmitted reference range : 35 - 45 mmHg. The reference range was not used to interpret this result as normal/abnormal . PO2 (test code = See_Comment H [Automated 4447030977) message] The sy stem which generated this result transmitted reference range : 80 - 100 mmHg. The reference range was not used to interpret this result as normal/abnormal . HCO3 (test code = See_Comment L [Automate d 9511833276) message] The sy stem which generated this result transmitted reference range : 22 - 26 mEq/L. The reference range was not used to interpret this result as normal/abnormal . BE (test code = See_Comment L [Automated 3058687954) message] The sy stem which generated this result transmitted reference range : -3.0 - 3.0 mEq/ L. The reference r waqas was not used to interpret this result as normal/abnormal . THB (test code = 12.5 g/dL 13.5-18.0 L 2429656214) %O2HB (test code = 98.6 % 94.0-99.0 5921599238) %COHB ART (test code = 0.3 % 0.0-1.5 5235210792) %METHB ART (test code = 0.1 % 0.4-1.5 L 7311328357) VOL%O2 ART (test code = 17.6 % 15.0-23.0 3913891790) NA (test code = 131 mmol/L 135-145 L 1015839843) K+ (test code = 4.1 mmol/L 3.5-5.0 4818771000) AC CA IONZ (test code = 4.70 mg/dL 4.50-5.30 7534897689) GLUCOSE (test code = 134 mg/dL 70-110 H 4494112979) LACTIC ACID (test code 1.99 mmol/L 0.50-2.20 = 0203412682) Lab Interpretation Abnormal (test code = 64927-1) [facility] with [id number] 09:34:06 Test Item Value Reference Range Interpretation Comments WBC (test code = See_Comment H [Automated 6690-2) message] The system which generated this result transmitted reference range : 4.20 - 10.70 10*3/?L. The reference range was not used to interpret this result as normal/abnormal . RBC (test code = See_Comment L [Automated 789-8) message] The system which generated this result transmitted reference range : 4.26 - 5.52 10*6/?L. The reference range was not used to interpret this result as normal/abnormal . HGB (test code = 11.7 g/dL 12.2-16.4 L 718-7) HCT (test code = 33.7 % 38.4-49.3 L 4544-3) MCV (test code = 90.1 fL 81.7-95.6 787-2) MCH (test code = 31.3 pg 26.1-32.7 785-6) MCHC (test code = 34.7 g/dL 31.2-35.0 786-4) RDW-SD (test code = 41.7 fL 38.5-51.6 45821-5) RDW-CV (test code = 12.6 % 12.1-15.4 788-0) PLT (test code = See_Comment [Automated 777-3) message] The system which generated this result transmitted reference range : 150 - 328 10*3/?L. The reference range was not used to interpret this result as normal/abnormal . MPV (test code = 10.0 fL 9.8-13.0 35705-1) NRBC/100 WBC (test See_Comment [Automat ed code = 5212156577) message] The system which generated this result transmitted reference range : 0.0 - 10.0 /100 WBCs. The reference range was not used to interpret this result as normal/abnormal . NRBC x10^3 (test code <0.01 See_Comment [Auto mated = 2950070529) message] The system which generated this result transmitted reference range : 10*3/?L. The reference range was not used to interpret this result as normal/abnormal . GRAN MAT (NEUT) % 90.9 % (test code = 770-8) IMM GRAN % (test code 1.40 % = 3017862103) LYMPH % (test code = 6.1 % 736-9) MONO % (test code = 1.4 % 5905-5) EOS % (test code = 0.0 % 713-8) BASO % (test code = 0.2 % 706-2) GRAN MAT x10^3(ANC) 12.50 10*3/uL 1.99-6.95 H (test code = 3187986955) IMM GRAN x10^3 (test 0.19 10*3/uL 0.00-0.06 H code = 1008708196) LYMPH x10^3 (test 0.84 10*3/uL 1.09-3.23 L code = 731-0) MONO x10^3 (test code 0.19 10*3/uL 0.36-1.02 L = 742-7) EOS x10^3 (test code <0.03 0.06-0.53 L = 711-2) BASO x10^3 (test code 0.03 10*3/uL 0.01-0.09 = 704-7) BANDS (test code = MARKED INCREASED A 0606077667) Lab Interpretation Abnormal (test code = 41049-4) [facility] with [id number] 09:34:06 Test Item Value Reference Range Interpretation Comments WBC (test code = See_Comment H [Automated 6690-2) message] The system which generated this result transmitted reference range : 4.20 - 10.70 10*3/?L. The reference range was not used to interpret this result as normal/abnormal . RBC (test code = See_Comment L [Automated 789-8) message] The system which generated this result transmitted reference range : 4.26 - 5.52 10*6/?L. The reference range was not used to interpret this result as normal/abnormal . HGB (test code = 11.7 g/dL 12.2-16.4 L 718-7) HCT (test code = 33.7 % 38.4-49.3 L 4544-3) MCV (test code = 90.1 fL 81.7-95.6 787-2) MCH (test code = 31.3 pg 26.1-32.7 785-6) MCHC (test code = 34.7 g/dL 31.2-35.0 786-4) RDW-SD (test code = 41.7 fL 38.5-51.6 10936-7) RDW-CV (test code = 12.6 % 12.1-15.4 788-0) PLT (test code = See_Comment [Automated 777-3) message] The system which generated this result transmitted reference range : 150 - 328 10*3/?L. The reference range was not used to interpret this result as normal/abnormal . MPV (test code = 10.0 fL 9.8-13.0 59765-6) NRBC/100 WBC (test See_Comment [Automat ed code = 3450921228) message] The system which generated this result transmitted reference range : 0.0 - 10.0 /100 WBCs. The reference range was not used to interpret this result as normal/abnormal . NRBC x10^3 (test code <0.01 See_Comment [Auto mated = 8415174705) message] The system which generated this result transmitted reference range : 10*3/?L. The reference range was not used to interpret this result as normal/abnormal . GRAN MAT (NEUT) % 90.9 % (test code = 770-8) IMM GRAN % (test code 1.40 % = 9044307666) LYMPH % (test code = 6.1 % 736-9) MONO % (test code = 1.4 % 5905-5) EOS % (test code = 0.0 % 713-8) BASO % (test code = 0.2 % 706-2) GRAN MAT x10^3(ANC) 12.50 10*3/uL 1.99-6.95 H (test code = 3535502607) IMM GRAN x10^3 (test 0.19 10*3/uL 0.00-0.06 H code = 1208558420) LYMPH x10^3 (test 0.84 10*3/uL 1.09-3.23 L code = 731-0) MONO x10^3 (test code 0.19 10*3/uL 0.36-1.02 L = 742-7) EOS x10^3 (test code <0.03 0.06-0.53 L = 711-2) BASO x10^3 (test code 0.03 10*3/uL 0.01-0.09 = 704-7) BANDS (test code = MARKED INCREASED A 2057821679) Lab Interpretation Abnormal (test code = 95052-2) [facility] / [id number] 09:17:01 Test Item Value Reference Range Interpretation Comments PROTIME PATIENT (test See_Comment H [Auto mated message] code = 5964-2) The system [employer] generated this result transmitted ref erence range: 10.1 - 1 2.6 Seconds. The reference range was not used to int erpret this result as normal/abnormal . INR (test code = 6301-6) Nor mal INR <1.1; Warfarin Therap eutic range 2.0 to 3. 0 or 2.5 to 3.5, dep ending upon the indica tions. Lab Interpretation (test Abnormal code = 36615-8) [facility] / [id number] 09:17:01 Test Item Value Reference Range Interpretation Comments PROTIME PATIENT (test See_Comment H [Auto mated message] code = 5964-2) The system [employer] generated this result transmitted ref erence range: 10.1 - 1 2.6 Seconds. The reference range was not used to int erpret this result as normal/abnormal . INR (test code = 6301-6) Nor mal INR <1.1; Warfarin Therap eutic range 2.0 to 3. 0 or 2.5 to 3.5, dep ending upon the indica tions. Lab Interpretation (test Abnormal code = 57940-8) [facility] [id number] 09:06:37 Test Item Value Reference Range Interpretation Comments MAGNESIUM (test code = 9824095515) 1.6 mg/dL 1.7-2.4 L Lab Interpretation (test code = Abnormal 27172-3) [facility] [id number] 09:06:37 Test Item Value Reference Range Interpretation Comments PHOSPHORUS (test code = 5307202452) 4.9 mg/dL 2.5-5.0 Lab Interpretation (test code = Normal 72585-2) [facility] UN[facility]JUGATED/BILI [id number] 09:06:37 Test Item Value Reference Range Interpretation Comments BILI CONJ (test code = 6682740960) 0.0 mg/dL 0.0-0.3 BILI UNCON (test code = 5380157288) 0.7 mg/dL 0.1-1.1 Lab Interpretation (test code = Normal 32469-8) [facility] METABOLIC PANEL (NA, K, CL, CO2, GLUCOSE, BUN, CREATININE, CA)2021-11-08 09:06:37 Test Item Value Reference Range Interpretation Comments NA (test code = 132 mmol/L 135-145 L 0096125509) K (test code = 4.4 mmol/L 3.5-5.0 1132924799) CL (test code = 105 mmol/L 98-108 8338292694) CO2 TOTAL (test code = 18 mmol/L 23-31 L 3572113841) AGAP (test code = 2-16 8590422521) BUN (test code = 28 mg/dL 7-23 H 3305108941) GLUCOSE (test code = 118 mg/dL 70-110 H 5672257124) CREATININE (test code = 1.60 mg/dL 0.60-1.25 H 0706062656) CALCIUM (test code = 7.5 mg/dL 8.6-10.6 L 2923869304) eGFR (test code = mL/min/1.73m2 1118901883) SHANNA (test code = SHANNA) Association of [...] tests). Lab Interpretation Abnormal (test code = 55166-0) [facility] UNCONJUGATED/BILI [id number] 09:06:37 Test Item Value Reference Range Interpretation Comments BILI CONJ (test code = 2027842753) 0.0 mg/dL 0.0-0.3 BILI UNCON (test code = 4784459482) 0.7 mg/dL 0.1-1.1 Lab Interpretation (test code = Normal 93221-9) [facility] [id number] 09:06:37 Test Item Value Reference Range Interpretation Comments MAGNESIUM (test code = 6794447466) 1.6 mg/dL 1.7-2.4 L Lab Interpretation (test code = Abnormal 07840-7) [facility] [id number] 09:06:37 Test Item Value Reference Range Interpretation Comments PHOSPHORUS (test code = 9390959766) 4.9 mg/dL 2.5-5.0 Lab Interpretation (test code = Normal 54201-3) [facility] UNCONJUGATED/BILI [id number] 09:06:37 Test Item Value Reference Range Interpretation Comments BILI CONJ (test code = 1659654855) 0.0 mg/dL 0.0-0.3 BILI UNCON (test code = 7226691611) 0.7 mg/dL 0.1-1.1 Lab Interpretation (test code = Normal 84542-0) [facility] METABOLIC PANEL (NA, K, CL, CO2, GLUCOSE, BUN, CREATININE, CA)2021-11-08 09:06:37 Test Item Value Reference Range Interpretation Comments NA (test code = 132 mmol/L 135-145 L 5522974257) K (test code = 4.4 mmol/L 3.5-5.0 2389370590) CL (test code = 105 mmol/L 98-108 4752713995) CO2 TOTAL (test code = 18 mmol/L 23-31 L 6340351146) AGAP (test code = 2-16 4792538266) BUN (test code = 28 mg/dL 7-23 H 5498739558) GLUCOSE (test code = 118 mg/dL 70-110 H 4159538031) CREATININE (test code = 1.60 mg/dL 0.60-1.25 H 1609079417) CALCIUM (test code = 7.5 mg/dL 8.6-10.6 L 0451110449) eGFR (test code = mL/min/1.73m2 0968775309) SHANNA (test code = SHANNA) Association of [...] tests). Lab Interpretation Abnormal (test code = 28733-1) [facility] + LACTIC [id number] 08:48:16 Test Item Value Reference Range Interpretation Comments PH (test code = 2) 7.35-7.45 L PCO2 (test code = See_Comment L [Automate d 7092873414) message] The sy stem which generated this result transmitted reference range : 35 - 45 mmHg. The reference range was not used to interpret this result as normal/abnormal . PO2 (test code = See_Comment [Automated 9161830251) message] The sy stem which generated this result transmitted reference range : 80 - 100 mmHg. The reference range was not used to interpret this result as normal/abnormal . HCO3 (test code = See_Comment L [Automate d 9084842771) message] The sy stem which generated this result transmitted reference range : 22 - 26 mEq/L. The reference range was not used to interpret this result as normal/abnormal . BE (test code = See_Comment L [Automated 7416188590) message] The sy stem which generated this result transmitted reference range : -3.0 - 3.0 mEq/ L. The reference r waqas was not used to interpret this result as normal/abnormal . THB (test code = 12.5 g/dL 13.5-18.0 L 3549882963) %O2HB (test code = 95.8 % 94.0-99.0 7258099586) %COHB ART (test code = 1.0 % 0.0-1.5 5453014808) %METHB ART (test code = 0.1 % 0.4-1.5 L 8703385688) VOL%O2 ART (test code = 16.9 % 15.0-23.0 8643096435) NA (test code = 130 mmol/L 135-145 L 8348475671) K+ (test code = 4.2 mmol/L 3.5-5.0 7517852849) AC CA IONZ (test code = 4.60 mg/dL 4.50-5.30 2022655084) GLUCOSE (test code = 118 mg/dL 70-110 H 4677475055) LACTIC ACID (test code 2.18 mmol/L 0.50-2.20 = 9412795063) Lab Interpretation Abnormal (test code = 64302-7) [facility]IC [id number] 08:48:16 Test Item Value Reference Range Interpretation Comments PH (test code = 2) 7.35-7.45 L PCO2 (test code = See_Comment L [Automate d 6517890982) message] The sy stem which generated this result transmitted reference range : 35 - 45 mmHg. The reference range was not used to interpret this result as normal/abnormal . PO2 (test code = See_Comment [Automated 7455888711) message] The sy stem which generated this result transmitted reference range : 80 - 100 mmHg. The reference range was not used to interpret this result as normal/abnormal . HCO3 (test code = See_Comment L [Automate d 3474981222) message] The sy stem which generated this result transmitted reference range : 22 - 26 mEq/L. The reference range was not used to interpret this result as normal/abnormal . BE (test code = See_Comment L [Automated 9191513992) message] The sy stem which generated this result transmitted reference range : -3.0 - 3.0 mEq/ L. The reference r waqas was not used to interpret this result as normal/abnormal . THB (test code = 12.5 g/dL 13.5-18.0 L 5399327440) %O2HB (test code = 95.8 % 94.0-99.0 5607578454) %COHB ART (test code = 1.0 % 0.0-1.5 3296904079) %METHB ART (test code = 0.1 % 0.4-1.5 L 1552870468) VOL%O2 ART (test code = 16.9 % 15.0-23.0 9039041821) NA (test code = 130 mmol/L 135-145 L [id number]) K+ (test code = 4.2 mmol/L 3.5-5.0 0011449633) AC CA IONZ (test code = 4.60 mg/dL 4.50-5.30 8885479915) GLUCOSE (test code = 118 mg/dL 70-110 H 1249973213) LACTIC ACID (test code 2.18 mmol/L 0.50-2.20 = 1127415485) Lab Interpretation Abnormal (test code = 84500-5) [facility] [id number] 05:21:17 Test Item Value Reference Range Interpretation Comments ABO & RH (test code O POSITIVE Performe d at [facility] = 20) Laboratory Serv ices - GAL Blood [facility] [address] [place] [address]Bphe Free: [phone] A No. [id number] IAT (test code = Negative Performed a t MSMB 1185) Laboratory [facility] Blood [address] [id number] Free: [phone] A No. [id number] [facility] - ONCE [id number] 05:21:17 Test Item Value Reference Range Interpretation Comments ABO & RH (test code O POSITIVE Performe d at [facility] = 20) Laboratory [facility] Blood [address] [address]Mwfb Free: [phone] A No. [id number] IAT (test code = Negative Performed a t MSMB 1185) Laboratory [facility] Blood [address] s [address]Mbyh Free: [phone] A No. [id number] [facility] - ONCE [id number] 05:21:17 Test Item Value Reference Range Interpretation Comments ABO & RH (test code O POSITIVE Performe d at [facility] = 20) Laboratory [facility] Blood [address] [address]Ghtk Free: [phone] A No. [id number] IAT (test code = Negative Performed a t MSMB 1185) Laboratory [facility] Blood [address] s [address]Qgbs Free: [phone] A No. [id number] [facility] WITH [id number] 21:53:33 Test Item Value Reference Range Interpretation Comments WBC (test code = See_Comment H [Automated 8755-2) message] The system which generated this result transmit keshav reference range : 4.20 - 10.70 10*3/?L. The reference range was not used to interpret this result as normal/abnormal . RBC (test code = See_Comment H [Automated 789-8) message] The system which generated this result transmit keshav reference range : 4.26 - 5.52 10*6/?L. The reference range was not used to interpret this result as normal/abnormal . HGB (test code = 18.8 g/dL 12.2-16.4 H 718-7) HCT (test code = 54.3 % 38.4-49.3 H 4544-3) MCV (test code = 90.0 fL 81.7-95.6 787-2) MCH (test code = 31.2 pg 26.1-32.7 785-6) MCHC (test code = 34.6 g/dL 31.2-35.0 786-4) RDW-SD (test code = 40.3 fL 38.5-51.6 09723-1) RDW-CV (test code = 12.2 % 12.1-15.4 788-0) PLT (test code = See_Comment [Automated 777-3) message] The system which generated this result transmit keshav reference range : 150 - 328 10*3/ ?L. The reference range was not u sed to interpret th is result as normal/abnormal . MPV (test code = 9.8 fL 9.8-13.0 83998-1) NRBC/100 WBC (test See_Comment [Automat ed code = [id number]) message] The system which generated this result transmit keshav reference range : 0.0 - 10.0 /100 WBCs. The reference range was not used to interpret this result as normal/abnormal . NRBC x10^3 (test code <0.01 See_Comment [Auto mated = [id number]) message] The system which generated this result transmit keshav reference range : 10*3/?L. The reference range was not used to interpret this result as normal/abnormal . SEG % (test code = 29 % 33-76 L 93461-4) BAND % (test code = 59 % 0-1 H 98880-5) META % (test code = 2 % See_Comment H [Automa keshav 37518-3) message] The system which generated this result transmit keshav reference range : <=0. The refere nce range was not u sed to interpret th is result as normal/abnormal . LYMPH % (test code = 9 % 14-54 L 06796-4) MONO % (test code = 1 % 0-4 10584-7) ANC (test code = 15.29 10*3/uL 1.99-6.95 H 753-4) TOXIC CHANGES (test Present A code = 803-7) Lab Interpretation Abnormal (test code = 79900-3) [facility] WITH [id number] 21:53:33 Test Item Value Reference Range Interpretation Comments WBC (test code = See_Comment H [Automated 6690-2) message] The system which generated this result transmit keshav reference range : 4.20 - 10.70 10*3/?L. The reference range was not used to interpret this result as normal/abnormal . RBC (test code = See_Comment H [Automated 789-8) message] The system which generated this result transmit keshav reference range : 4.26 - 5.52 10*6/?L. The reference range was not used to interpret this result as normal/abnormal . HGB (test code = 18.8 g/dL 12.2-16.4 H 718-7) HCT (test code = 54.3 % 38.4-49.3 H 4544-3) MCV (test code = 90.0 fL 81.7-95.6 787-2) MCH (test code = 31.2 pg 26.1-32.7 785-6) MCHC (test code = 34.6 g/dL 31.2-35.0 786-4) RDW-SD (test code = 40.3 fL 38.5-51.6 19116-1) RDW-CV (test code = 12.2 % 12.1-15.4 788-0) PLT (test code = See_Comment [Automated 777-3) message] The system which generated this result transmit keshav reference range : 150 - 328 10*3/ ?L. The reference range was not u sed to interpret th is result as normal/abnormal . MPV (test code = 9.8 fL 9.8-13.0 42536-3) NRBC/100 WBC (test See_Comment [Automat ed code = 0339583850) message] The system which generated this result transmit keshav reference range : 0.0 - 10.0 /100 WBCs. The reference range was not used to interpret this result as normal/abnormal . NRBC x10^3 (test code <0.01 See_Comment [Auto mated = [id number]) message] The system which generated this result transmit keshav reference range : 10*3/?L. The reference range was not used to interpret this result as normal/abnormal . SEG % (test code = 29 % 33-76 L 02228-5) BAND % (test code = 59 % 0-1 H 00504-0) META % (test code = 2 % See_Comment H [Automa keshav 56118-1) message] The system which generated this result transmit keshav reference range : <=0. The refere nce range was not u sed to interpret th is result as normal/abnormal . LYMPH % (test code = 9 % 14-54 L 76088-2) MONO % (test code = 1 % 0-4 38658-4) ANC (test code = 15.29 10*3/uL 1.99-6.95 H 753-4) TOXIC CHANGES (test Present A code = 803-7) Lab Interpretation Abnormal (test code = 00646-3) [facility] CONSULT [id number] 20:54:28 ABSOLUTE NEUTROPHILIA, ABSOLUTE IMMATURE GRANULOCYTOSIS/ LEFT SHIFT, AND ABSOLUTE EOSINOPENIA. ERYTHROCYTOSIS. ERYTHROPOIETIN LEVEL AND BONE MARROW EVALUATION MAY BE HELPFUL IF CLINICALLY INDICATED. MILD THROMBOCYTOSIS. ? [facility] CONSULT [id number] 20:54:28 ABSOLUTE NEUTROPHILIA, ABSOLUTE IMMATURE GRANULOCYTOSIS/ LEFT SHIFT, AND ABSOLUTE EOSINOPENIA. ERYTHROCYTOSIS. ERYTHROPOIETIN LEVEL AND BONE MARROW EVALUATION MAY BE HELPFUL IF CLINICALLY INDICATED. MILD THROMBOCYTOSIS. ? [facility] CONSULT [id number] 20:54:28 ABSOLUTE NEUTROPHILIA, ABSOLUTE IMMATURE GRANULOCYTOSIS/ LEFT SHIFT, AND ABSOLUTE EOSINOPENIA. ERYTHROCYTOSIS. ERYTHROPOIETIN LEVEL AND BONE MARROW EVALUATION MAY BE HELPFUL IF CLINICALLY INDICATED. MILD THROMBOCYTOSIS. ? [facility] Acid Whole [id number] 20:44:11 Test Item Value Reference Range Interpretation Comments LACTIC ACID (test code = 3.97 mmol/L 0.50-2.20 H 2471582407) Lab Interpretation (test code = Abnormal 66572-0) [facility] [id number] 20:44:11 Test Item Value Reference Range Interpretation Comments LACTIC ACID (test code = 3.97 mmol/L 0.50-2.20 H 1524352350) Lab Interpretation (test code = Abnormal 29885-9) [facility] [id number] 20:44:11 Test Item Value Reference Range Interpretation Comments LACTIC ACID (test code = 3.97 mmol/L 0.50-2.20 H 4627481453) Lab Interpretation (test code = Abnormal 89204-0) [facility] 15:24:11 Test Item Value Reference Range Interpretation Comments Procalcitonin (test 2.52 ng/mL <0.07 H code = 1340809996) SHANNA (test code = SHANNA) INTERPRETATION OF PROCALCITONIN RESULTS IN ADULTS >= 18 YEARS OF AGE Initiation and discontinuation of antibiotics on patients with suspected or confirmed Lower Respiratory Tract Infection in Adults >= 18 years of age. + +-------- --------+ + -----+|Procalcitonin |Interpretation ?|Antibiotic ? ? |Considerations ? |ng/mL ? | ?|recommendation | ? + +-------- --------+ + -----+| <0.1 ? | Bacterial ? ? ?| Strongly ? ? ?| ? | ?| infection very | discouraged ? | Overruling: ? | ?| unlikely ? ? ? | ? | ? Clinically unstable ? ? ? + +-------- --------+ + ? High risk for adverse ? ? | <0.25 ?| Bacterial ? ? ?| Discouraged ? | ? outcome ? | ?| infection ? ? ?| ? | ? SEE IMPORTANT NOTE ?| ?| unlikely ? ? ? | ? | ? + +-------- --------+ + -----+| >=0.25 ? ? ? | Bacterial ? ? ?| Encouraged ? ?| ? | ?| infection ? ? ?| ? | ? | ?| likely ? | ? | Consider treatment failure ?+ +------- ---------+ -+ if levels does not decrease | >0.5 ? | Bacterial ? ? ?| Strongly ? ? ?| appropriately ? | ?| infection very | encouraged ? ?| ? | ?| likely ? | ? | ? + +-------- --------+ + -----+ Discontinuation of antibiotics in high-acuity patients with suspected or confirmed sepsis in Adults >= 18 years of age. + +-------- --------+ + -----+|Procalcitonin |Interpretation ?|Antibiotic ? ? |Considerations ? |ng/mL ? | ?|recommendation | ? + +-------- --------+ + -----+| <0.25 ?| Bacterial ? ? ?| Strongly ? ? ?| ? | ?| infection very | discouraged ? | Overruling: ? | ?| unlikely ? ? ? | ? | ? Clinically unstable ? ? ? + +-------- --------+ + ? High risk for adverse ? ? | <0.5 or drop | Bacterial ? ? ?| Discouraged ? | ? outcome ? | >80% from ? ?| infection ? ? ?| ? | ? SEE IMPORTANT NOTE ?| highest PCT ?| unlikely ? ? ? | ? | ? | level ?| ?| ? | ? + +-------- --------+ + -----+| >=0.5 ?| Bacterial ? ? ?| Encouraged ? ?| ? | ?| infection ? ? ?| ? | ? | ?| likely ? | ? | Consider treatment failure ?+ +------- ---------+ -+ if levels does not decrease | >1.0 ? | Bacterial ? ? ?| Strongly ? ? ?| appropriately ? | ?| infection very | encouraged ? ?| ? | ?| likely ? | ? | ? + +-------- --------+ + -----+ Percentage of drop of Procalcitonin calculation for Discontinuation of antibiotics in high-acuity patients with suspected or confirmed sepsis in Adults >= 18 years of age. ? Procalcitonin highest{}-Procalcitonin current{}Delta Procalcitonin = x100% ? Procalcitonin current {} IMPORTANT NOTE: Procalcitonin may be elevated without bacterial infection by physiologic stress related to trauma, corey, chronic dialysis, metastatic cancer, surgery in the past seven days, malaria, some fungal infections, and some forms of vasculitis. The interpretation algorithm may not apply to patients with immunosuppression (equivalent of >10 mg of prednisone daily), HIV with CD4 cell count < 350 cells/mm3, active malignancy on systemic chemotherapy, solid organ transplant or hematopoietic stem cell transplantation, or hospital acquired pneumonia. Additionally, some clinical trials of procalcitonin have excluded patients with shock requiring vasopressor use, acute respiratory failure requiring mechanical ventilation, or those with known lung abscess/empyema. For further information please refer to:[email or web address] Lab Interpretation Abnormal (test code = 16306-9) [facility] 15:24:11 Test Item Value Reference Range Interpretation Comments Procalcitonin (test 2.52 ng/mL <0.07 H code = 9222290729) SHANNA (test code = SHANNA) INTERPRETATION OF PROCALCITONIN RESULTS IN ADULTS >= 18 YEARS OF AGE Initiation and discontinuation of antibiotics on patients with suspected or confirmed Lower Respiratory Tract Infection in Adults >= 18 years of age. + +-------- --------+ + -----+|Procalcitonin |Interpretation ?|Antibiotic ? ? |Considerations ? |ng/mL ? | ?|recommendation | ? + +-------- --------+ + -----+| <0.1 ? | Bacterial ? ? ?| Strongly ? ? ?| ? | ?| infection very | discouraged ? | Overruling: ? | ?| unlikely ? ? ? | ? | ? Clinically unstable ? ? ? + +-------- --------+ + ? High risk for adverse ? ? | <0.25 ?| Bacterial ? ? ?| Discouraged ? | ? outcome ? | ?| infection ? ? ?| ? | ? SEE IMPORTANT NOTE ?| ?| unlikely ? ? ? | ? | ? + +-------- --------+ + -----+| >=0.25 ? ? ? | Bacterial ? ? ?| Encouraged ? ?| ? | ?| infection ? ? ?| ? | ? | ?| likely ? | ? | Consider treatment failure ?+ +------- ---------+ -+ if levels does not decrease | >0.5 ? | Bacterial ? ? ?| Strongly ? ? ?| appropriately ? | ?| infection very | encouraged ? ?| ? | ?| likely ? | ? | ? + +-------- --------+ + -----+ Discontinuation of antibiotics in high-acuity patients with suspected or confirmed sepsis in Adults >= 18 years of age. + +-------- --------+ + -----+|Procalcitonin |Interpretation ?|Antibiotic ? ? |Considerations ? |ng/mL ? | ?|recommendation | ? + +-------- --------+ + -----+| <0.25 ?| Bacterial ? ? ?| Strongly ? ? ?| ? | ?| infection very | discouraged ? | Overruling: ? | ?| unlikely ? ? ? | ? | ? Clinically unstable ? ? ? + +-------- --------+ + ? High risk for adverse ? ? | <0.5 or drop | Bacterial ? ? ?| Discouraged ? | ? outcome ? | >80% from ? ?| infection ? ? ?| ? | ? SEE IMPORTANT NOTE ?| highest PCT ?| unlikely ? ? ? | ? | ? | level ?| ?| ? | ? + +-------- --------+ + -----+| >=0.5 ?| Bacterial ? ? ?| Encouraged ? ?| ? | ?| infection ? ? ?| ? | ? | ?| likely ? | ? | Consider treatment failure ?+ +------- ---------+ -+ if levels does not decrease | >1.0 ? | Bacterial ? ? ?| Strongly ? ? ?| appropriately ? | ?| infection very | encouraged ? ?| ? | ?| likely ? | ? | ? + +-------- --------+ + -----+ Percentage of drop of Procalcitonin calculation for Discontinuation of antibiotics in high-acuity patients with suspected or confirmed sepsis in Adults >= 18 years of age. ? Procalcitonin highest{}-Procalcitonin current{}Delta Procalcitonin = x100% ? Procalcitonin current {} IMPORTANT NOTE: Procalcitonin may be elevated without bacterial infection by physiologic stress related to trauma, corey, chronic dialysis, metastatic cancer, surgery in the past seven days, malaria, some fungal infections, and some forms of vasculitis. The interpretation algorithm may not apply to patients with immunosuppression (equivalent of >10 mg of prednisone daily), HIV with CD4 cell count < 350 cells/mm3, active malignancy on systemic chemotherapy, solid organ transplant or hematopoietic stem cell transplantation, or hospital acquired pneumonia. Additionally, some clinical trials of procalcitonin have excluded patients with shock requiring vasopressor use, acute respiratory failure requiring mechanical ventilation, or those with known lung abscess/empyema. For further information please refer to:[email or web address] Lab Interpretation Abnormal (test code = 93814-9) [facility] 15:24:11 Test Item Value Reference Range Interpretation Comments Procalcitonin (test 2.52 ng/mL <0.07 H code = 8648882990) SHANNA (test code = SHANNA) INTERPRETATION OF PROCALCITONIN RESULTS IN ADULTS >= 18 YEARS OF AGE Initiation and discontinuation of antibiotics on patients with suspected or confirmed Lower Respiratory Tract Infection in Adults >= 18 years of age. + +-------- --------+ + -----+|Procalcitonin |Interpretation ?|Antibiotic ? ? |Considerations ? |ng/mL ? | ?|recommendation | ? + +-------- --------+ + -----+| <0.1 ? | Bacterial ? ? ?| Strongly ? ? ?| ? | ?| infection very | discouraged ? | Overruling: ? | ?| unlikely ? ? ? | ? | ? Clinically unstable ? ? ? + +-------- --------+ + ? High risk for adverse ? ? | <0.25 ?| Bacterial ? ? ?| Discouraged ? | ? outcome ? | ?| infection ? ? ?| ? | ? SEE IMPORTANT NOTE ?| ?| unlikely ? ? ? | ? | ? + +-------- --------+ + -----+| >=0.25 ? ? ? | Bacterial ? ? ?| Encouraged ? ?| ? | ?| infection ? ? ?| ? | ? | ?| likely ? | ? | Consider treatment failure ?+ +------- ---------+ -+ if levels does not decrease | >0.5 ? | Bacterial ? ? ?| Strongly ? ? ?| appropriately ? | ?| infection very | encouraged ? ?| ? | ?| likely ? | ? | ? + +-------- --------+ + -----+ Discontinuation of antibiotics in high-acuity patients with suspected or confirmed sepsis in Adults >= 18 years of age. + +-------- --------+ + -----+|Procalcitonin |Interpretation ?|Antibiotic ? ? |Considerations ? |ng/mL ? | ?|recommendation | ? + +-------- --------+ + -----+| <0.25 ?| Bacterial ? ? ?| Strongly ? ? ?| ? | ?| infection very | discouraged ? | Overruling: ? | ?| unlikely ? ? ? | ? | ? Clinically unstable ? ? ? + +-------- --------+ + ? High risk for adverse ? ? | <0.5 or drop | Bacterial ? ? ?| Discouraged ? | ? outcome ? | >80% from ? ?| infection ? ? ?| ? | ? SEE IMPORTANT NOTE ?| highest PCT ?| unlikely ? ? ? | ? | ? | level ?| ?| ? | ? + +-------- --------+ + -----+| >=0.5 ?| Bacterial ? ? ?| Encouraged ? ?| ? | ?| infection ? ? ?| ? | ? | ?| likely ? | ? | Consider treatment failure ?+ +------- ---------+ -+ if levels does not decrease | >1.0 ? | Bacterial ? ? ?| Strongly ? ? ?| appropriately ? | ?| infection very | encouraged ? ?| ? | ?| likely ? | ? | ? + +-------- --------+ + -----+ Percentage of drop of Procalcitonin calculation for Discontinuation of antibiotics in high-acuity patients with suspected or confirmed sepsis in Adults >= 18 years of age. ? Procalcitonin highest{}-Procalcitonin current{}Delta Procalcitonin = x100% ? Procalcitonin current {} IMPORTANT NOTE: Procalcitonin may be elevated without bacterial infection by physiologic stress related to trauma, corey, chronic dialysis, metastatic cancer, surgery in the past seven days, malaria, some fungal infections, and some forms of vasculitis. The interpretation algorithm may not apply to patients with immunosuppression (equivalent of >10 mg of prednisone daily), HIV with CD4 cell count < 350 cells/mm3, active malignancy on systemic chemotherapy, solid organ transplant or hematopoietic stem cell transplantation, or hospital acquired pneumonia. Additionally, some clinical trials of procalcitonin have excluded patients with shock requiring vasopressor use, acute respiratory failure requiring mechanical ventilation, or those with known lung abscess/empyema. For further information please refer to:[email or web address] Lab Interpretation Abnormal (test code = 66318-5) [facility] [id number] 15:00:54 Test Item Value Reference Range Interpretation Comments TSH (test code = See_Comment [Automated message] [id number]) The system [employer] generated this result transmitted ref erence range: 0.45 - 4 .70 mIU/L. The refe rence range was not u sed to interpret this result as normal/abnor mal. Lab Interpretation (test Normal code = 49811-7) [facility] [id number] 15:00:54 Test Item Value Reference Range Interpretation Comments TSH (test code = See_Comment [Automated message] [id number]) The system [employer] generated this result transmitted ref erence range: 0.45 - 4 .70 mIU/L. The refe rence range was not u sed to interpret this result as normal/abnor mal. Lab Interpretation (test Normal code = 33230-0) [facility] [id number] 15:00:54 Test Item Value Reference Range Interpretation Comments TSH (test code = See_Comment [Automated message] 4515892112) The system [employer] generated this result transmitted ref erence range: 0.45 - 4 .70 mIU/L. The refe rence range was not u sed to interpret this result as normal/abnor mal. Lab Interpretation (test Normal code = 66765-9) [facility] 14:52:50 Test Item Value Reference Range Interpretation Comments PHOSPHORUS (test code = 4.3 mg/dL 2.5-5.0 Slig ht hemolysis 2325242588) Lab Interpretation (test Normal code = 24377-2) [facility] 14:52:50 Test Item Value Reference Range Interpretation Comments PHOSPHORUS (test code = 4.3 mg/dL 2.5-5.0 Slig ht hemolysis 8096139909) Lab Interpretation (test Normal code = 25489-7) [facility] 14:50:34 Test Item Value Reference Range Interpretation Comments GAIL (test code = 7927543825) 199 U/L 35-110 H Lab Interpretation (test code = Abnormal 21259-6) [facility] 14:50:34 Test Item Value Reference Range Interpretation Comments GAIL (test code = 4395686754) 199 U/L 35-110 H Lab Interpretation (test code = Abnormal 77882-0) [facility] 14:50:34 Test Item Value Reference Range Interpretation Comments GAIL (test code = 0802795257) 199 U/L 35-110 H Lab Interpretation (test code = Abnormal 02154-8) [facility]oundLIPID PANEL (07873)(TOTAL CHOLESTEROL, TRIGLYCERIDES, HDL)2021-11-07 14:30:07 Test Item Value Reference Range Interpretation Comments CHOL (test code = 74 mg/dL 120-200 L 0450478854) HDL (test code = 25 mg/dL >40 L 4660261707) HDLC RATIO (test code = See_Comment [Au tomated message] 3129633270) The system [employer] generated this result transmitted ref erence range: <=5.0. T he reference range was not used to int erpret this result as normal/abnormal . TRIG (test code = 41 mg/dL 30-170 8673432614) LDL CHOL (test code = 41 mg/dL See_Comment [Auto mated message] 04663-7) The system [employer] generated this result transmitted ref erence range: <=160. T he reference range was not used to int erpret this result as normal/abnormal . VLDL (test code = 8 mg/dL 5-60 2911270685) Lab Interpretation (test Abnormal code = 99803-7) [facility] (50514)(TOTAL CHOLESTEROL, TRIGLYCERIDES, HDL)2021-11-07 14:30:07 Test Item Value Reference Range Interpretation Comments CHOL (test code = 74 mg/dL 120-200 L 1636702844) HDL (test code = 25 mg/dL >40 L 3486427517) HDLC RATIO (test code = See_Comment [Au tomated message] 1161868592) The system [employer] generated this result transmitted ref erence range: <=5.0. T he reference range was not used to int erpret this result as normal/abnormal . TRIG (test code = 41 mg/dL 30-170 5542867785) LDL CHOL (test code = 41 mg/dL See_Comment [Auto mated message] 43556-0) The system [employer] generated this result transmitted ref erence range: <=160. T he reference range was not used to int erpret this result as normal/abnormal . VLDL (test code = 8 mg/dL 5-60 1787204192) Lab Interpretation (test Abnormal code = 46223-2) [facility] (29441)(TOTAL CHOLESTEROL, TRIGLYCERIDES, HDL)2021-11-07 14:30:07 Test Item Value Reference Range Interpretation Comments CHOL (test code = 74 mg/dL 120-200 L 8047038664) HDL (test code = 25 mg/dL >40 L 4867005164) HDLC RATIO (test code = See_Comment [Au tomated message] 3741695841) The system [employer] generated this result transmitted ref erence range: <=5.0. T he reference range was not used to int erpret this result as normal/abnormal . TRIG (test code = 41 mg/dL 30-170 9236098450) LDL CHOL (test code = 41 mg/dL See_Comment [Auto mated message] 69223-0) The system [employer] generated this result transmitted ref erence range: <=160. T he reference range was not used to int erpret this result as normal/abnormal . VLDL (test code = 8 mg/dL 5-60 1505234987) Lab Interpretation (test Abnormal code = 24858-3) [facility] WITH [id number] 12:15:27 Test Item Value Reference Range Interpretation Comments WBC (test code = See_Comment [Automated 6690-2) message] The system which generated this result transmitted reference range : 4.20 - 10.70 10*3/?L. The reference range was not used to interpret this result as normal/abnormal . RBC (test code = See_Comment H [Automated 789-8) message] The system which generated this result transmitted reference range : 4.26 - 5.52 10*6/?L. The reference range was not used to interpret this result as normal/abnormal . HGB (test code = 18.1 g/dL 12.2-16.4 H 718-7) HCT (test code = 53.9 % 38.4-49.3 H 4544-3) MCV (test code = 90.9 fL 81.7-95.6 787-2) MCH (test code = 30.5 pg 26.1-32.7 785-6) MCHC (test code = 33.6 g/dL 31.2-35.0 786-4) RDW-SD (test code = 41.0 fL 38.5-51.6 35774-5) RDW-CV (test code = 12.2 % 12.1-15.4 788-0) PLT (test code = See_Comment [Automated 777-3) message] The system which generated this result transmitted reference range : 150 - 328 10*3/?L. The reference range was not used to interpret this result as normal/abnormal . MPV (test code = 9.9 fL 9.8-13.0 25586-9) NRBC/100 WBC (test See_Comment [Automat ed code = 8179816121) message] The system which generated this result transmitted reference range : 0.0 - 10.0 /100 WBCs. The reference range was not used to interpret this result as normal/abnormal . NRBC x10^3 (test code <0.01 See_Comment [Auto mated = 4804320940) message] The system which generated this result transmitted reference range : 10*3/?L. The reference range was not used to interpret this result as normal/abnormal . GRAN MAT (NEUT) % 86.6 % (test code = 770-8) IMM GRAN % (test code 0.30 % = 0436112363) LYMPH % (test code = 7.6 % 736-9) MONO % (test code = 5.3 % 5905-5) EOS % (test code = 0.0 % 713-8) BASO % (test code = 0.2 % 706-2) GRAN MAT x10^3(ANC) 7.69 10*3/uL 1.99-6.95 H (test code = 9807721195) IMM GRAN x10^3 (test 0.03 10*3/uL 0.00-0.06 code = 5411020824) LYMPH x10^3 (test 0.68 10*3/uL 1.09-3.23 L code = 731-0) MONO x10^3 (test code 0.47 10*3/uL 0.36-1.02 = 742-7) EOS x10^3 (test code <0.03 0.06-0.53 L = 711-2) BASO x10^3 (test code <0.03 0.01-0.09 = 704-7) BANDS (test code = MARKED INCREASED A 8868358403) Lab Interpretation Abnormal (test code = 99825-5) [facility] WITH [id number] 12:15:27 Test Item Value Reference Range Interpretation Comments WBC (test code = See_Comment [Automated 6690-2) message] The system which generated this result transmitted reference range : 4.20 - 10.70 10*3/?L. The reference range was not used to interpret this result as normal/abnormal . RBC (test code = See_Comment H [Automated 789-8) message] The system which generated this result transmitted reference range : 4.26 - 5.52 10*6/?L. The reference range was not used to interpret this result as normal/abnormal . HGB (test code = 18.1 g/dL 12.2-16.4 H 718-7) HCT (test code = 53.9 % 38.4-49.3 H 4544-3) MCV (test code = 90.9 fL 81.7-95.6 787-2) MCH (test code = 30.5 pg 26.1-32.7 785-6) MCHC (test code = 33.6 g/dL 31.2-35.0 786-4) RDW-SD (test code = 41.0 fL 38.5-51.6 90313-8) RDW-CV (test code = 12.2 % 12.1-15.4 788-0) PLT (test code = See_Comment [Automated 777-3) message] The system which generated this result transmitted reference range : 150 - 328 10*3/?L. The reference range was not used to interpret this result as normal/abnormal . MPV (test code = 9.9 fL 9.8-13.0 48092-7) NRBC/100 WBC (test See_Comment [Automat ed code = 0716249576) message] The system which generated this result transmitted reference range : 0.0 - 10.0 /100 WBCs. The reference range was not used to interpret this result as normal/abnormal . NRBC x10^3 (test code <0.01 See_Comment [Auto mated = 7300268123) message] The system which generated this result transmitted reference range : 10*3/?L. The reference range was not used to interpret this result as normal/abnormal . GRAN MAT (NEUT) % 86.6 % (test code = 770-8) IMM GRAN % (test code 0.30 % = 8426747134) LYMPH % (test code = 7.6 % 736-9) MONO % (test code = 5.3 % 5905-5) EOS % (test code = 0.0 % 713-8) BASO % (test code = 0.2 % 706-2) GRAN MAT x10^3(ANC) 7.69 10*3/uL 1.99-6.95 H (test code = 4607395182) IMM GRAN x10^3 (test 0.03 10*3/uL 0.00-0.06 code = 3598207863) LYMPH x10^3 (test 0.68 10*3/uL 1.09-3.23 L code = 731-0) MONO x10^3 (test code 0.47 10*3/uL 0.36-1.02 = 742-7) EOS x10^3 (test code <0.03 0.06-0.53 L = 711-2) BASO x10^3 (test code <0.03 0.01-0.09 = 704-7) BANDS (test code = MARKED INCREASED A 6724248619) Lab Interpretation Abnormal (test code = 11018-2) [id number] 11:59:40 Test Item Value Reference Range Interpretation Comments NT-proBNP (test code 31 pg/mL See_Comment [Autom ated = 8752099307) message] The system which generated this result transmitted reference range : <=125. The reference range was not used to interpret this result as normal/abnormal . SHANNA (test code = SHANNA) Biotin has been reported to cause a negative bias, interpret results relative to patient's use of biotin. Lab Interpretation Normal (test code = 29101-6) [facility] [id number] 11:59:40 Test Item Value Reference Range Interpretation Comments NT-proBNP (test code 31 pg/mL See_Comment [Autom ated = 3833658160) message] The system which generated this result transmitted reference range : <=125. The reference range was not used to interpret this result as normal/abnormal . SHANNA (test code = SHANNA) Biotin has been reported to cause a negative bias, interpret results relative to patient's use of biotin. Lab Interpretation Normal (test code = 23787-4) [facility] [id number] 11:59:40 Test Item Value Reference Range Interpretation Comments NT-proBNP (test code 31 pg/mL See_Comment [Autom ated = 3679054629) message] The system which generated this result transmitted reference range : <=125. The reference range was not used to interpret this result as normal/abnormal . SHANNA (test code = SHANNA) Biotin has been reported to cause a negative bias, interpret results relative to patient's use of biotin. Lab Interpretation Normal (test code = 71353-3) [facility] 11:55:38 Test Item Value Reference Range Interpretation Comments MAGNESIUM (test code = 6102706538) 1.6 mg/dL 1.7-2.4 L Lab Interpretation (test code = Abnormal 98147-4) [facility] ([id number])2021-11-07 11:55:38 Test Item Value Reference Range Interpretation Comments NA (test code = 136 mmol/L 135-145 7180411621) K (test code = 3.9 mmol/L 3.5-5.0 9281273223) CL (test code = 103 mmol/L 98-108 8257098357) CO2 TOTAL (test code = 22 mmol/L 23-31 L 9447983945) AGAP (test code = 2-16 7307899566) BUN (test code = 16 mg/dL 7-23 7008490731) GLUCOSE (test code = 104 mg/dL 70-110 9740368854) CREATININE (test code = 0.95 mg/dL 0.60-1.25 7057395514) TOTAL BILI (test code = 1.2 mg/dL 0.1-1.1 H 8559442638) CALCIUM (test code = 8.1 mg/dL 8.6-10.6 L 1190497720) T PROTEIN (test code = 5.9 g/dL 6.3-8.2 L 2468630267) ALBUMIN (test code = 3.3 g/dL 3.5-5.0 L 3320720709) ALK PHOS (test code = 43 U/L 34-122 6817171106) ALTv (test code = 19 U/L 5-50 1742-6) AST(SGOT) (test code = 23 U/L 13-40 3009744389) eGFR (test code = mL/min/1.73m2 7535317629) SHANNA (test code = SHANNA) Association of [...] tests). Lab Interpretation Abnormal (test code = 15057-0) [facility]. METABOLIC PANEL (85956)2021-11-07 11:55:38 Test Item Value Reference Range Interpretation Comments NA (test code = 136 mmol/L 135-145 2992247115) K (test code = 3.9 mmol/L 3.5-5.0 3844564447) CL (test code = 103 mmol/L 98-108 9114967293) CO2 TOTAL (test code = 22 mmol/L 23-31 L 8695038511) AGAP (test code = 2-16 3561900466) BUN (test code = 16 mg/dL 7-23 5496576634) GLUCOSE (test code = 104 mg/dL 70-110 2010138484) CREATININE (test code = 0.95 mg/dL 0.60-1.25 8831510404) TOTAL BILI (test code = 1.2 mg/dL 0.1-1.1 H 9009762321) CALCIUM (test code = 8.1 mg/dL 8.6-10.6 L 0461382007) T PROTEIN (test code = 5.9 g/dL 6.3-8.2 L 9282573909) ALBUMIN (test code = 3.3 g/dL 3.5-5.0 L 7957899613) ALK PHOS (test code = 43 U/L 34-122 1630916799) ALTv (test code = 19 U/L 5-50 1742-6) AST(SGOT) (test code = 23 U/L 13-40 2034855608) eGFR (test code = mL/min/1.73m2 4972185106) SHANNA (test code = SHANNA) Association of [...] tests). Lab Interpretation Abnormal (test code = 04701-1) [facility] 11:55:38 Test Item Value Reference Range Interpretation Comments MAGNESIUM (test code = 9931389125) 1.6 mg/dL 1.7-2.4 L Lab Interpretation (test code = Abnormal 83948-0) [facility] (12529)2021-11-07 11:55:38 Test Item Value Reference Range Interpretation Comments NA (test code = 136 mmol/L 135-145 4863021576) K (test code = 3.9 mmol/L 3.5-5.0 4007570463) CL (test code = 103 mmol/L 98-108 1883703744) CO2 TOTAL (test code = 22 mmol/L 23-31 L 1702137660) AGAP (test code = 2-16 9466784525) BUN (test code = 16 mg/dL 7-23 5565844141) GLUCOSE (test code = 104 mg/dL 70-110 3721788449) CREATININE (test code = 0.95 mg/dL 0.60-1.25 5777990063) TOTAL BILI (test code = 1.2 mg/dL 0.1-1.1 H 5803565669) CALCIUM (test code = 8.1 mg/dL 8.6-10.6 L 8434724321) T PROTEIN (test code = 5.9 g/dL 6.3-8.2 L 6787421889) ALBUMIN (test code = 3.3 g/dL 3.5-5.0 L 9775981598) ALK PHOS (test code = 43 U/L 34-122 1065259152) ALTv (test code = 19 U/L 5-50 1742-6) AST(SGOT) (test code = 23 U/L 13-40 6182693585) eGFR (test code = mL/min/1.73m2 0081928231) SHANNA (test code = SHANNA) Association of [...] tests). Lab Interpretation Abnormal (test code = 93333-8) [facility] 11:55:18 Test Item Value Reference Range Interpretation Comments LIPASE (test code = 7933223421) 240 U/L 0-220 H Lab Interpretation (test code = Abnormal 73448-0) [facility] 11:55:18 Test Item Value Reference Range Interpretation Comments LIPASE (test code = 9834708824) 240 U/L 0-220 H Lab Interpretation (test code = Abnormal 78464-0) [facility] 11:55:18 Test Item Value Reference Range Interpretation Comments LIPASE (test code = 0104311585) 240 U/L 0-220 H Lab Interpretation (test code = Abnormal 61917-5) [facility] / [id number] 11:13:13 Test Item Value Reference Range Interpretation Comments PROTIME PATIENT (test See_Comment [Auto mated message] code = 5964-2) The system [employer] generated this result transmitted ref erence range: 12.0 - 1 4.7 Seconds. The re ference range was not u sed to interpret this result as normal/abnor mal. INR (test code = 6301-6) Nor mal INR <1.1; Warfarin Therap eutic range 2.0 to 3. 0 or 2.5 to 3.5, dep ending upon the indica tions. Lab Interpretation (test Normal code = 29074-3) [facility]PROTHROM[facility] / [id number] 11:13:13 Test Item Value Reference Range Interpretation Comments PROTIME PATIENT (test See_Comment [Auto mated message] code = 5964-2) The system [employer] generated this result transmitted ref erence range: 12.0 - 1 4.7 Seconds. The re ference range was not u sed to interpret this result as normal/abnor mal. INR (test code = 6301-6) Nor mal INR <1.1; Warfarin Therap eutic range 2.0 to 3. 0 or 2.5 to 3.5, dep ending upon the indica tions. Lab Interpretation (test Normal code = 41261-7) [facility]EM[facility]GLOBIN (A1C)2021-11-07 07:12:15 Test Item Value Reference Range Interpretation Comments HGB A1C (test code = 5.2 % 4.0-5.7 4548-4) SHANNA (test code = SHANNA) Reference RangesNormal: <5.7%Prediabetes: 5.7 - 6.4%Diabetes: > 6.5% Lab Interpretation (test Normal code = 36838-7) [facility]A1C)2021-11-07 07:12:15 Test Item Value Reference Range Interpretation Comments HGB A1C (test code = 5.2 % 4.0-5.7 4548-4) SHANNA (test code = SHANNA) Reference RangesNormal: <5.7%Prediabetes: 5.7 - 6.4%Diabetes: > 6.5% Lab Interpretation (test Normal code = 09354-5) [facility] (A1C)2021-11-07 07:12:15 Test Item Value Reference Range Interpretation Comments HGB A1C (test code = 5.2 % 4.0-5.7 4548-4) SHANNA (test code = SHANNA) Reference RangesNormal: <5.7%Prediabetes: 5.7 - 6.4%Diabetes: > 6.5% Lab Interpretation (test Normal code = 03627-8) [id number] 07:07:23 Test Item Value Reference Range Interpretation Comments ESR (test code = See_Comment [Automated message] 7411438435) The system [employer] generated this result transmitted ref erence range: 0 - 10 m m/HR. The reference r waqas was not used to interpret this result as normal/abnor mal. Lab Interpretation (test Normal code = 58258-1) [facility] [id number] 07:07:23 Test Item Value Reference Range Interpretation Comments ESR (test code = See_Comment [Automated message] 8138388535) The system [employer] generated this result transmitted ref erence range: 0 - 10 m m/HR. The reference r waqas was not used to interpret this result as normal/abnor mal. Lab Interpretation (test Normal code = 61788-7) [facility]SEDIMENT[facility] [id number] 07:07:23 Test Item Value Reference Range Interpretation Comments ESR (test code = See_Comment [Automated message] 9014279674) The system [employer] generated this result transmitted ref erence range: 0 - 10 m m/HR. The reference r waqas was not used to interpret this result as normal/abnor mal. Lab Interpretation (test Normal code = 77285-0) [facility] WITH [id number] 00:58:43 Test Item Value Reference Range Interpretation Comments WBC (test code = See_Comment H [Automated 2090-2) message] The system which generated this result transmit keshav reference range : 4.20 - 10.70 10*3/?L. The reference range was not used to interpret this result as normal/abnormal . RBC (test code = See_Comment H [Automated 789-8) message] The system which generated this result transmit keshav reference range : 4.26 - 5.52 10*6/?L. The reference range was not used to interpret this result as normal/abnormal . HGB (test code = 18.3 g/dL 12.2-16.4 H 718-7) HCT (test code = 53.2 % 38.4-49.3 H 4544-3) MCV (test code = 89.1 fL 81.7-95.6 787-2) MCH (test code = 30.7 pg 26.1-32.7 785-6) MCHC (test code = 34.4 g/dL 31.2-35.0 786-4) RDW-SD (test code = 40.2 fL 38.5-51.6 05637-7) RDW-CV (test code = 12.2 % 12.1-15.4 788-0) PLT (test code = See_Comment H [Automated 777-3) message] The system which generated this result transmit keshav reference range : 150 - 328 10*3/ ?L. The reference range was not u sed to interpret th is result as normal/abnormal . MPV (test code = 9.4 fL 9.8-13.0 L 90261-0) NRBC/100 WBC (test See_Comment [Automat ed code = 7717002057) message] The system which generated this result transmit keshav reference range : 0.0 - 10.0 /100 WBCs. The reference range was not used to interpret this result as normal/abnormal . NRBC x10^3 (test code <0.01 See_Comment [Auto mated = 6087791372) message] The system which generated this result transmit keshav reference range : 10*3/?L. The reference range was not used to interpret this result as normal/abnormal . GRAN MAT (NEUT) % 87.5 % (test code = 770-8) IMM GRAN % (test code 1.00 % = 8625939915) LYMPH % (test code = 7.7 % 736-9) MONO % (test code = 3.4 % 5905-5) EOS % (test code = 0.1 % 713-8) BASO % (test code = 0.3 % 706-2) GRAN MAT x10^3(ANC) 20.51 10*3/uL 1.99-6.95 H (test code = 9958940083) IMM GRAN x10^3 (test 0.23 10*3/uL 0.00-0.06 H code = 7141742980) LYMPH x10^3 (test code 1.80 10*3/uL 1.09-3.23 = 731-0) MONO x10^3 (test code 0.79 10*3/uL 0.36-1.02 = 742-7) EOS x10^3 (test code = <0.03 0.06-0.53 L 711-2) BASO x10^3 (test code 0.08 10*3/uL 0.01-0.09 = 704-7) BANDS (test code = Increased A 4088217670) Lab Interpretation Abnormal (test code = 07087-0) [facility] WITH [id number] 00:58:43 Test Item Value Reference Range Interpretation Comments WBC (test code = See_Comment H [Automated 6690-2) message] The system which generated this result transmit keshav reference range : 4.20 - 10.70 10*3/?L. The reference range was not used to interpret this result as normal/abnormal . RBC (test code = See_Comment H [Automated 789-8) message] The system which generated this result transmit keshav reference range : 4.26 - 5.52 10*6/?L. The reference range was not used to interpret this result as normal/abnormal . HGB (test code = 18.3 g/dL 12.2-16.4 H 718-7) HCT (test code = 53.2 % 38.4-49.3 H 4544-3) MCV (test code = 89.1 fL 81.7-95.6 787-2) MCH (test code = 30.7 pg 26.1-32.7 785-6) MCHC (test code = 34.4 g/dL 31.2-35.0 786-4) RDW-SD (test code = 40.2 fL 38.5-51.6 31127-6) RDW-CV (test code = 12.2 % 12.1-15.4 788-0) PLT (test code = See_Comment H [Automated 777-3) message] The system which generated this result transmit keshav reference range : 150 - 328 10*3/ ?L. The reference range was not u sed to interpret th is result as normal/abnormal . MPV (test code = 9.4 fL 9.8-13.0 L 55161-5) NRBC/100 WBC (test See_Comment [Automat ed code = 7862294324) message] The system which generated this result transmit keshav reference range : 0.0 - 10.0 /100 WBCs. The reference range was not used to interpret this result as normal/abnormal . NRBC x10^3 (test code <0.01 See_Comment [Auto mated = 8797198291) message] The system which generated this result transmit keshav reference range : 10*3/?L. The reference range was not used to interpret this result as normal/abnormal . GRAN MAT (NEUT) % 87.5 % (test code = 770-8) IMM GRAN % (test code 1.00 % = 6530004001) LYMPH % (test code = 7.7 % 736-9) MONO % (test code = 3.4 % 5905-5) EOS % (test code = 0.1 % 713-8) BASO % (test code = 0.3 % 706-2) GRAN MAT x10^3(ANC) 20.51 10*3/uL 1.99-6.95 H (test code = 6785992533) IMM GRAN x10^3 (test 0.23 10*3/uL 0.00-0.06 H code = 4642362294) LYMPH x10^3 (test code 1.80 10*3/uL 1.09-3.23 = 731-0) MONO x10^3 (test code 0.79 10*3/uL 0.36-1.02 = 742-7) EOS x10^3 (test code = <0.03 0.06-0.53 L 711-2) BASO x10^3 (test code 0.08 10*3/uL 0.01-0.09 = 704-7) BANDS (test code = Increased A 6374842229) Lab Interpretation Abnormal (test code = 59185-2) [facility] (65541)2021-11-07 00:35:53 Test Item Value Reference Range Interpretation Comments NA (test code = 138 mmol/L 135-145 0247898814) K (test code = 4.2 mmol/L 3.5-5.0 4888628929) CL (test code = 98 mmol/L 98-108 6291220198) CO2 TOTAL (test code = 26 mmol/L 23-31 4395029664) AGAP (test code = 2-16 3650930746) BUN (test code = 16 mg/dL 7-23 3772285834) GLUCOSE (test code = 139 mg/dL 70-110 H 8151612540) CREATININE (test code = 0.92 mg/dL 0.60-1.25 4440790195) TOTAL BILI (test code = 0.9 mg/dL 0.1-1.9 2823973969) CALCIUM (test code = 9.4 mg/dL 8.6-10.6 7159152015) T PROTEIN (test code = 7.7 g/dL 6.3-8.2 9003634285) ALBUMIN (test code = 4.6 g/dL 3.5-5.0 6118441296) ALK PHOS (test code = 80 U/L 34-122 0899770017) ALTv (test code = 26 U/L 5-50 2-6) AST(SGOT) (test code = 27 U/L 13-40 3799502538) eGFR (test code = mL/min/1.73m2 2905126541) SHANNA (test code = SHANNA) Association of [...] tests). Lab Interpretation Abnormal (test code = 11116-1) [facility]. METABOLIC PANEL (51674)2021-11-07 00:35:53 Test Item Value Reference Range Interpretation Comments NA (test code = 138 mmol/L 135-145 2498935487) K (test code = 4.2 mmol/L 3.5-5.0 8446916343) CL (test code = 98 mmol/L 98-108 1762149669) CO2 TOTAL (test code = 26 mmol/L 23-31 2626002231) AGAP (test code = 2-16 9949547380) BUN (test code = 16 mg/dL 7-23 1243516726) GLUCOSE (test code = 139 mg/dL 70-110 H 7526874523) CREATININE (test code = 0.92 mg/dL 0.60-1.25 9802755041) TOTAL BILI (test code = 0.9 mg/dL 0.1-1.6 2498622728) CALCIUM (test code = 9.4 mg/dL 8.6-10.6 3145737807) T PROTEIN (test code = 7.7 g/dL 6.3-8.2 2778798898) ALBUMIN (test code = 4.6 g/dL 3.5-5.0 8891668792) ALK PHOS (test code = 80 U/L 34-122 2634372044) ALTv (test code = 26 U/L 5-50 1742-6) AST(SGOT) (test code = 27 U/L 13-40 7741745694) eGFR (test code = mL/min/1.73m2 7652965049) SHANNA (test code = SHANNA) Association of [...] tests). Lab Interpretation Abnormal (test code = 02723-6) [facility] 00:35:12 Test Item Value Reference Range Interpretation Comments LIPASE (test code = 3084049494) 113 U/L 0-220 Lab Interpretation (test code = Normal 52390-4) [facility] 00:35:12 Test Item Value Reference Range Interpretation Comments LIPASE (test code = 5831994298) 113 U/L 0-220 Lab Interpretation (test code = Normal 47019-7) [facility]OL[facility] PAN[facility] (69686)2021-08-20 20:29:55 Test Item Value Reference Range Interpretation Comments NA (test code = 140 mmol/L 135-145 4120032356) K (test code = 4.1 mmol/L 3.5-5.0 5055988863) CL (test code = 100 mmol/L 98-108 7945874284) CO2 TOTAL (test code = 29 mmol/L 23-31 9793801643) AGAP (test code = 2-16 3930932123) BUN (test code = 15 mg/dL 7-23 4714981480) GLUCOSE (test code = 90 mg/dL 70-110 6034385268) CREATININE (test code = 1.06 mg/dL 0.60-1.25 3627987024) TOTAL BILI (test code = 0.5 mg/dL 0.1-1.2 0379900727) CALCIUM (test code = 10.0 mg/dL 8.6-10.6 3048721959) T PROTEIN (test code = 8.3 g/dL 6.3-8.2 H 5045750263) ALBUMIN (test code = 5.2 g/dL 3.5-5.0 H 5146258525) ALK PHOS (test code = 68 U/L 34-122 9052914913) ALTv (test code = 36 U/L 5-50 1742-6) AST(SGOT) (test code = 31 U/L 13-40 7804288656) eGFR (test code = mL/min/1.73m2 4726534583) SHANNA (test code = SHANNA) Association of [...] tests). Lab Interpretation Abnormal (test code = 09727-6) [facility] 20:12:31 Test Item Value Reference Range Interpretation Comments LIPASE (test code = 3204660892) 626 U/L 0-220 H Lab Interpretation (test code = Abnormal 41485-7) [facility] WITH [id number] 19:46:42 Test Item Value Reference Range Interpretation Comments WBC (test code = See_Comment H [Automated 6690-2) message] The sy stem which generated this result transmitted reference range : 4.20 - 10.70 10*3/?L. The reference range was not used to interpret this result as normal/abnormal . RBC (test code = See_Comment H [Automated 789-8) message] The sy stem which generated this result transmitted reference range : 4.26 - 5.52 10*6/?L. The reference range was not used to interpret this result as normal/abnormal . HGB (test code = 17.1 g/dL 12.2-16.4 H 718-7) HCT (test code = 50.4 % 38.4-49.3 H 4544-3) MCV (test code = 91.0 fL 81.7-95.6 787-2) MCH (test code = 30.9 pg 26.1-32.7 785-6) MCHC (test code = 33.9 g/dL 31.2-35.0 786-4) RDW-SD (test code = 42.0 fL 38.5-51.6 42524-8) RDW-CV (test code = 12.5 % 12.1-15.4 788-0) PLT (test code = See_Comment [Automated 777-3) message] The sy stem which generated this result transmitted reference range : 150 - 328 10*3/ ?L. The reference r waqas was not used to interpret this result as normal/abnormal . MPV (test code = 9.5 fL 9.8-13.0 L 89296-2) NRBC/100 WBC (test See_Comment [Automat ed code = [id number]) message] The system which generated this result transmitted reference range : 0.0 - 10.0 /100 WBCs. The refer ence range was not u sed to interpret th is result as normal/abnormal . NRBC x10^3 (test code <0.01 See_Comment [Auto mated = [id number]) message] The s ystem which generated this result transmitted reference range : 10*3/?L. The reference range was not used to interpret this result as normal/abnormal . GRAN MAT (NEUT) % 71.9 % (test code = 770-8) IMM GRAN % (test code 0.40 % = [id number]) LYMPH % (test code = 21.3 % 736-9) MONO % (test code = 4.4 % 5905-5) EOS % (test code = 1.4 % 713-8) BASO % (test code = 0.6 % 706-2) GRAN MAT x10^3(ANC) 9.41 10*3/uL 1.99-6.95 H (test code = [id number]) IMM GRAN x10^3 (test 0.05 10*3/uL 0.00-0.06 code = [id number]) LYMPH x10^3 (test code 2.78 10*3/uL 1.09-3.23 = 731-0) MONO x10^3 (test code 0.57 10*3/uL 0.36-1.02 = 742-7) EOS x10^3 (test code = 0.18 10*3/uL 0.06-0.53 711-2) BASO x10^3 (test code 0.08 10*3/uL 0.01-0.09 = 704-7) Lab Interpretation Abnormal (test code = 71579-8) [facility]. METABOLIC PANEL (43370)2021-08-05 09:20:20 Test Item Value Reference Range Interpretation Comments NA (test code = 138 mmol/L 135-145 7740437096) K (test code = 4.1 mmol/L 3.5-5.0 6253754452) CL (test code = 104 mmol/L 98-108 5655723141) CO2 TOTAL (test code 30 mmol/L 23-31 = 2497904065) AGAP (test code = 2-16 4739570728) BUN (test code = 15 mg/dL 7-23 7661846589) GLUCOSE (test code = 97 mg/dL 70-110 3481863583) CREATININE (test code 0.91 mg/dL 0.60-1.25 = 0219939939) TOTAL BILI (test code 0.3 mg/dL 0.1-1.1 = 4470674496) CALCIUM (test code = 9.0 mg/dL 8.6-10.6 1753884727) T PROTEIN (test code 6.8 g/dL 6.3-8.2 = 3016384831) ALBUMIN (test code = 4.1 g/dL 3.5-5.0 8446654541) ALK PHOS (test code = 60 U/L 34-122 5185501016) ALTv (test code = 37 U/L 5-50 1742-6) AST(SGOT) (test code 29 U/L 13-40 = 3701002259) eGFR (test code = mL/min/1.73m2 2290691043) SHANNA (test code = SHANNA) Association of Glomerular Filtration Rate (GFR) and Staging of Kidney Disease* + + +- +| GFR (mL/min/1.73 m2) ?| With Kidney Damage ?| ?Without Kidney Damage+ ------+ ----+ ------+| ?>90 ?| ?Stage one ?| ? Normal ?+ -+ + -+| ?60-89 ?| ?Stage two ?| ? Decreased GFR ? + + +- +| ?30-59 ?| ?Stage three ?| ? Stage three ? + + +- +| ?15-29 ?| ?Stage four ? | ? Stage four ?+ -+ + -+| ?<15 (or dialysis) ? ?| ?Stage five ? | ? Stage five ?+ -+ + -+ *Each stage assumes the associated GFR level [...] or urine or abnormalities in imaging tests). [facility] WITH [id number] 09:09:58 Test Item Value Reference Range Interpretation Comments WBC (test code = See_Comment H [Automated 7598-2) message] The system which generated this result transmit keshav reference range : 4.20 - 10.70 10*3/?L. The reference range was not used to interpret this result as normal/abnormal . RBC (test code = See_Comment [Automated 209-8) message] The system which generated this result transmit keshav reference range : 4.26 - 5.52 10*6/?L. The reference range was not used to interpret this result as normal/abnormal . HGB (test code = 15.2 g/dL 12.2-16.4 718-7) HCT (test code = 44.0 % 38.4-49.3 4544-3) MCV (test code = 90.3 fL 81.7-95.6 787-2) MCH (test code = 31.2 pg 26.1-32.7 785-6) MCHC (test code = 34.5 g/dL 31.2-35.0 786-4) RDW-SD (test code = 39.8 fL 38.5-51.6 29322-8) RDW-CV (test code = 12.0 % 12.1-15.4 L 788-0) PLT (test code = See_Comment [Automated 777-3) message] The system which generated this result transmit keshav reference range : 150 - 328 10*3/ ?L. The reference range was not u sed to interpret th is result as normal/abnormal . MPV (test code = 9.3 fL 9.8-13.0 L 97731-2) NRBC/100 WBC (test See_Comment [Automat ed code = 6636537377) message] The system which generated this result transmit keshav reference range : 0.0 - 10.0 /100 WBCs. The reference range was not used to interpret this result as normal/abnormal . NRBC x10^3 (test code <0.01 See_Comment [Auto mated = 1022983422) message] The system which generated this result transmit keshav reference range : 10*3/?L. The reference range was not used to interpret this result as normal/abnormal . GRAN MAT (NEUT) % 74.9 % (test code = 770-8) IMM GRAN % (test code 0.40 % = 8362307254) LYMPH % (test code = 17.1 % 736-9) MONO % (test code = 5.4 % 5905-5) EOS % (test code = 1.8 % 713-8) BASO % (test code = 0.4 % 706-2) GRAN MAT x10^3(ANC) 10.57 10*3/uL 1.99-6.95 H (test code = 5088021593) IMM GRAN x10^3 (test 0.06 10*3/uL 0.00-0.06 code = 8598519320) LYMPH x10^3 (test code 2.41 10*3/uL 1.09-3.23 = 731-0) MONO x10^3 (test code 0.76 10*3/uL 0.36-1.02 = 742-7) EOS x10^3 (test code = 0.25 10*3/uL 0.06-0.53 711-2) BASO x10^3 (test code 0.05 10*3/uL 0.01-0.09 = 704-7) Lab Interpretation Abnormal (test code = 82266-4) [facility] 1 [id number] 17:07:58 No radiographic cardiopulmonary disease. RL 4728 Electronically signed by Sai Mooney at 112:07 PMCHEST SINGLE VIEW CLINICAL HISTORY: Chest pain. ORDERING PHYSICIAN: LANEY VALDES TECHNIQUE: Frontal view of chest COMPARISON: None available. FINDINGS: The cardiac silhouette is within normal limits. ?Lungs are clear. Osseous structures are normal. Msmb, Radiant Results Inft User - 11/02/2020 12:09 PM CDTCHEST SINGLE VIEWCLINICAL HISTORY: Chest pain.ORDERING PHYSICIAN: JL WYATTCHNIQUE: Frontal view of chestCOMPARISON: None available.FINDINGS:The cardiac silhouette is within normal limits. Lungs are clear. Osseous structures are normal. IMPRESSIONNo radiographic cardiopulmonary disease. 4728 [facility] - 4 ER [id number] 03:21:50 Test Item Value Reference Range Interpretation Comments AMPHET (test code = Presumptive Positive Negative A 2246499215) Cocaine Metabolite (test Negative Negative code = 1401150023) OPIATES (test code = Negative Negative 9147165086) THC (test code = Presumptive Positive Negative A 2241679127) SHANNA (test code = SHANNA) Urine Drug Cutoff Ranges Amphetamine: ? 1,000 ng/mLCocaine: ? 150 ng/mLOpiates: ? 300 ng/mLCannabinoids: ?50 ng/mL The results are to be used only for medical (i.e., treatment) purposes. Unconfirmed screening results must not be used for non-medical purposes (e.g., employment testing, legal testing). Lab Interpretation (test Abnormal code = 11048-9) [facility] 01:47:34 Test Item Value Reference Range Interpretation Comments SALICYLATE (test code <10 mg/L = 0045822580) SHANNA (test code = SHANNA) Therapeutic Range: ? Analgesic and Antipyretic Use ? 20-100 mg/L ? ? Anti-Inflammatory Use ? 100-250 mg/L Toxic Range: ? Greater than 300 mg/L [facility]ETAMINOPHEN2021-04-10 01:47:29 Test Item Value Reference Range Interpretation Comments ACETAMINOP (test code = <10.0 10.0-30.0 L 5113507880) SHANNA (test code = SHANNA) Toxic: Greater than 200 ug/mL @ 4 hour post ingestion or greater than 50 ug/mL @ 12 hour post ingestion Lab Interpretation (test Abnormal code = 34113-3) [facility]2021-04-10 01:30:43 Test Item Value Reference Range Interpretation Comments APPEARANCE (test code = Hazy Clear A 5788588376) COLOR (test code = Lona Yellow A 4412114349) PH (test code = 4.8-8.0 7324777563) SP GRAVITY (test code = 1.003-1.030 H 1841987100) GLU U QUAL (test code = Normal Normal 1897175663) BLOOD (test code = Negative Negative 7235133156) KETONES (test code = 5 mg/dL Negative A 9144672409) PROTEIN (test code = 30 mg/dL Negative A 2887-8) UROBILIN (test code = 2.0 mg/dL Normal A 4169010100) BILIRUBIN (test code = Negative Negative 5935398886) NITRITE (test code = Negative Negative 3480136760) LEUK PETRA (test code = Negative Negative 7120515091) RBC/HPF (test code = See_Comment H [Autom ated message] 6440096493) The system [employer] generated this result transmit keshav reference range : 0 - 3 HPF. The refe rence range was not u sed to interpret th is result as normal/abnormal . WBC/HPF (test code = See_Comment [Autom ated message] 7255475587) The system [employer] generated this result transmit keshav reference range : 0 - 5 HPF. The refe rence range was not u sed to interpret th is result as normal/abnormal . BACTERIA (test code = Few Negative A 1095374853) MUCOUS (test code = Marked Negative LPF A 8586313123) AMORPHOUS (test code = Rare Rare HPF 1200287250) SQ EPITH (test code = <1 HPF 7258400255) HYAL CAST (test code = See_Comment [Aut omated message] 4693502599) The system [employer] generated this result transmit keshav reference range : <=2 LPF. The refere nce range was not u sed to interpret th is result as normal/abnormal . Lab Interpretation (test Abnormal code = 74519-0) [facility]2021-[facility]-10 01:21:21 Test Item Value Reference Range Interpretation Comments ALCOHOL (test code = <10 mg/dL 2610563253) SHANNA (test code = SHANNA) <10 Tepsydye16-166 Toxic>100 Depression of FINANCE MGR>400 Fatalities Reported [facility] (ID NOW RAPID TESTING)2020-11-02 01:21:00 Test Item Value Reference Range Interpretation Comments SARS-CoV-2 Rapid ID NOW Not Detected Not Detected (test code = 20947-3) SHANNA (test code = SHANNA) ID NOW COVID-19 Assay is an isothermal nucleic acid amplification test intended for the qualitative detection of nucleic acid from SARS-CoV-2 viral RNA in nasopharyngeal (YARDMASTER) specimens. It is used under Emergency Use [...] indicated. Lab Interpretation Normal (test code = 19212-4) [facility] METABOLIC PANEL (NA, K, CL, CO2, GLUCOSE, BUN, CREATININE, CA)2020-11-02 01:19:17 Test Item Value Reference Range Interpretation Comments NA (test code = 137 mmol/L 135-145 7292159524) K (test code = 3.4 mmol/L 3.5-5.0 L 0974150746) CL (test code = 102 mmol/L 98-108 1088489722) CO2 TOTAL (test code = 29 mmol/L 23-31 1183655517) AGAP (test code = 2-16 1035028360) BUN (test code = 18 mg/dL 7-23 1387560656) GLUCOSE (test code = 88 mg/dL 70-110 4601417828) CREATININE (test code = 1.06 mg/dL 0.60-1.25 5207768736) CALCIUM (test code = 8.8 mg/dL 8.6-10.6 8205673676) eGFR (test code = mL/min/1.73m2 8412704612) SHANNA (test code = SHANNA) Association of [...] tests). Lab Interpretation Abnormal (test code = 79275-9) [facility]oundHEPAT[facility] FUN[facility] PANEL (45208) (ALB,T.PRO,BILI T,BU/BC,ALT,AST,ALK PHOS)2020-11-02 01:19:17 Test Item Value Reference Range Interpretation Comments TOTAL BILI (test code = 7911397027) 1.3 mg/dL 0.1-1.1 H BILI UNCON (test code = 2029005560) 1.3 mg/dL 0.1-1.1 H BILI CONJ (test code = 0928351982) 0.0 mg/dL 0.0-0.3 T PROTEIN (test code = 1569815691) 6.8 g/dL 6.3-8.2 ALBUMIN (test code = 4012630215) 4.3 g/dL 3.5-5.0 ALK PHOS (test code = 3444646787) 62 U/L 34-122 ALTv (test code = 1742-6) 23 U/L 5-50 AST(SGOT) (test code = 2475304788) 33 U/L 13-40 Lab Interpretation (test code = Abnormal 69270-2) [facility]oundCREATINE [id number] 01:19:17 Test Item Value Reference Range Interpretation Comments CK (test code = 9655813979) 379 U/L 33-194 H Lab Interpretation (test code = Abnormal 49970-8) [facility]CBC WITH [id number] 01:07:57 Test Item Value Reference Range Interpretation Comments WBC (test code = See_Comment [Automated 5537-2) message] The sy stem which generated this [...] RDW-SD (test code = 39.8 fL 38.5-51.6 03922-4) RDW-CV (test code = 12.3 % 12.1-15.4 788-0) PLT (test code = See_Comment [Automated 777-3) message] The sy stem which generated this result transmitted reference range : 150 - 328 10*3/ ?L. The reference r waqas was not used to interpret this result as normal/abnormal . MPV (test code = 9.2 fL 9.8-13.0 L 34160-4) NRBC/100 WBC (test See_Comment [Automat ed code = 0861819087) message] The system which generated this result transmitted reference range : 0.0 - 10.0 /100 WBCs. The refer ence range was not u sed to interpret th is result as normal/abnormal . NRBC x10^3 (test code <0.01 See_Comment [Auto mated = 2833734249) message] The s ystem which generated this result transmitted reference range : 10*3/?L. The reference range was not used to interpret this result as normal/abnormal . GRAN MAT (NEUT) % 61.3 % (test code = 770-8) IMM GRAN % (test code 0.30 % = 6880545942) LYMPH % (test code = 26.0 % 736-9) MONO % (test code = 9.4 % 5905-5) EOS % (test code = 2.5 % 713-8) BASO % (test code = 0.5 % 706-2) GRAN MAT x10^3(ANC) 6.14 10*3/uL 1.99-6.95 (test code = 4350796837) IMM GRAN x10^3 (test 0.03 10*3/uL 0.00-0.06 code = 6483993123) LYMPH x10^3 (test code 2.61 10*3/uL 1.09-3.23 = 731-0) MONO x10^3 (test code 0.94 10*3/uL 0.36-1.02 = 742-7) EOS x10^3 (test code = 0.25 10*3/uL 0.06-0.53 711-2) BASO x10^3 (test code 0.05 10*3/uL 0.01-0.09 = 704-7) Lab Interpretation Abnormal (test code = 59721-2) [facility]"
[2022-09-04] MEDS ORDERED: predniSONE 20 MG TAB ONE (09:14)
[2022-09-04] MEDS ORDERED: IPRATROPIUM BROM 0.5MG/2.5ML ONE (09:14)
[2022-09-04] MEDS ORDERED: ALBUTEROL 2.5 MG/3 ML NEB SOL ONE (09:14)
[2022-09-04 09:55] LABS: SARS-COV-2 RT PCR NEGATIVE (NEGATIVE)
--- NOTE | 2022-09-04 10:54 | RAD REPORT ---
EXAM DESCRIPTION: Elli Nation (2 Views)09/04/2022 10:20 am CLINICAL HISTORY: Cough COMPARISON: 2018 FINDINGS: The lungs appear clear of acute infiltrate. The heart is normal size IMPRESSION: No acute abnormalities displayed
--- NOTE | 2022-09-04 11:01 | EDPHYS ---
Physician Documentation [facility] Name: Mac Kern Age: 37 yrs Sex: Male : 1985 Arrival Date: 09/04/2022 Time: 08:33 Bed 13 Private MD: ED Physician James Oscar HPI: 09/04 09:28 This 37 yrs old Male presents to ER via Ambulatory with complaints of Cough, Congestion.rt 09:28 Patient presents to the ED with cough, dyspnea. Patient states this time he gets a rt bronchitis each year. The patient reports shortness of breath, mild lightheadedness. This has been going on for about 2 weeks now. He has not had adequate relief with Mucinex and NyQuil. The patient denies other acute complaints at this time. Symptoms are mild in severity, no other aggravating or elevating factors.. Historical: - Allergies: 08:42 No Known Allergies; iw - Home Meds: 08:42 Seroquel Oral [Active]; iw - PMHx: 08:42 Depression; RETINAL DETACHMENT; iw - Social history:: Smoking status: Patient reports the use of cigarette tobacco products. - Family history:: not pertinent. ROS: 09:28 Constitutional: Negative for fever, chills, and weight loss, Cardiovascular: Negative rt for chest pain, palpitations, and edema, Abdomen/GI: Negative for abdominal pain, nausea, vomiting, diarrhea, and constipation, MS/Extremity: Negative for injury and deformity, Skin: Negative for injury, rash, and discoloration, Psych: Negative for depression, anxiety, suicide ideation, homicidal ideation, and hallucinations. 09:28 Respiratory: Positive for cough, shortness of breath. 09:28 Neuro: Positive for dizziness, Negative for altered mental status, loss of consciousness. Exam: 09:28 Constitutional: This is a well developed, well nourished patient who is awake, alert, rt and in no acute distress. Head/Face: Normocephalic, atraumatic. Neck: Trachea midline, no thyromegaly or masses palpated, and no cervical lymphadenopathy. Supple, full range of motion without nuchal rigidity, or vertebral point tenderness. No Meningismus. Chest/axilla: Normal chest wall appearance and motion. Nontender with no deformity. No lesions are appreciated. Cardiovascular: Regular rate and rhythm with a normal S1 and S2. No gallops, murmurs, or rubs. Normal PMI, no JVD. No pulse deficits. Abdomen/GI: Soft, non-tender, with normal bowel sounds. No distension or tympany. No guarding or rebound. No evidence of tenderness throughout. Skin: Warm, dry with normal turgor. Normal color with no rashes, no lesions, and no evidence of cellulitis. MS/ Extremity: Pulses equal, no cyanosis. Neurovascular intact. Full, normal range of motion. Neuro: Awake and alert, GCS 15, oriented to person, place, time, and situation. Cranial nerves II-XII grossly intact. Motor strength 5/5 in all extremities. Sensory grossly intact. Cerebellar exam normal. Normal gait. Psych: Awake, alert, with orientation to person, place and time. Behavior, mood, and affect are within normal limits. 09:28 ECG was reviewed by the Attending Physician. 09:28 Respiratory: Wheezes heard on all lung massey, no respiratory distress. Vital Signs: 08:40 BP 118 / 59; Pulse 84; Resp 18; Temp 98.8; Pulse Ox 96% ; Weight 86.18 kg; Height 5 ft. iw 10 in. (177.80 cm); 09:15 BP 112 / 60; Pulse 72; Resp 18; Pulse Ox 100% on R/A; kr3 08:40 Body Mass Index 27.26 (86.18 kg, 177.80 cm) iw MDM: 08:47 Patient medically screened. rt 11:03 Differential Diagnosis: Other Pneumonia, pneumothorax, bronchitis, URI. Data reviewed: rt vital signs, nurses notes, lab test result(s), radiologic studies. Independent interpretation of the following test(s) in the Emergency Department X-Ray: My interpretation is No infiltrate. Test considered but Not performed: EKG: Low suspicion for cardiac etiology, CHF. Care significantly affected by the following Social Determinants of Health: Tobacco abuse. Counseling: I had a detailed discussion with the patient and/or guardian regarding: the historical points, exam findings, and any diagnostic results supporting the discharge/admit diagnosis, lab results, radiology results, the need for outpatient follow up, smoking cessation. Response to treatment: the patient's symptoms have markedly improved after treatment. 09/04 08:53 Order name: COVID-19/FLU A+B; Complete Time: 09:56 rt 02/10 08:53 Order name: Chest Pa And Lat (2 Views) XRAY; Complete Time: 10:55 rt 09/04 08:53 Order name: EKG; Complete Time: 08:53 rt 09/04 08:53 Order name: EKG - Nurse/Tech; Complete Time: 09:07 rt EC:28 Rate is 81 beats/min. Rhythm is regular, Normal Sinus Rhythm with No ectopy. QRS [place] rt is Normal. SC interval is normal. QRS interval is normal. QT interval is normal. No Q waves. T waves are Normal. No ST changes noted. Clinical impression: Normal ECG. Interpreted by me. Administered Medications: : Drug: DuoNeb (albuterol 2.5 mg, ipratropium 0.5 mg) (3:1) (2.5 mg - 0.5 mg) 3 ml Route: kr3 Nebulizer; : Drug: predniSONE 40 mg Route: PO; kr3 Disposition Summary: 09/04/22 11:00 Discharge Ordered Location: Home rt Problem: new rt Symptoms: have improved rt Condition: Stable rt Diagnosis - Acute bronchitis, unspecified rt Followup: rt - With: Private Physician - When: 2 - 3 days - Reason: Discharge Instructions: - Discharge Summary Sheet rt - Acute Bronchitis, Adult rt Forms: - Medication Reconciliation Form rt - Thank You Letter rt - Antibiotic Education rt - Prescription Opioid Use rt Prescriptions: - albuterol sulfate 90 mcg/actuation Inhalation HFA aerosol inhaler - inhale 2 puff by INHALATION route every 4 hours; 2 Inhaler; Refills: 0, Product rt Selection Permitted - Tessalon Perles 100 mg Oral Capsule - take 1 capsule by ORAL route every 8 hours As needed; 15 capsule; Refills: 0, rt Product Selection Permitted - Prednisone 20 mg Oral Tablet - take 1 tablet by ORAL route once daily for 4 days; 4 tablet; Refills: 0, rt Product Selection Permitted Signatures: Dispatcher [employer] Darline Estes RN RN iw Reid, Kelley, RN RN kr3 James Oscar MD MD rt
--- NOTE | 2022-09-04 11:01 | ER ---
Nurse's Notes [facility] Name: Mac Kern Age: 37 yrs Sex: Male : 1985 Arrival Date: 09/04/2022 Time: 08:33 Bed 13 Private MD: Diagnosis: Acute bronchitis, unspecified Presentation: 09/04 08:40 Chief complaint: Patient states: i get chronic bronchitis around this time every year, iw I have SOB , cough, started about 5-6 day ago , no fever. Coronavirus screen: Client presents with at least one sign or symptom that may indicate coronavirus-19. Ebola Screen: Patient negative for fever greater than or equal to 101.5 degrees Fahrenheit, and additional compatible Ebola Virus Disease symptoms Patient denies exposure to infectious person. Patient denies travel to an Ebola-affected area in the 21 days before illness onset. No symptoms or risks identified at this time. Initial Sepsis Screen: Does the patient meet any 2 criteria? No. Patient's initial sepsis screen is negative. Does the patient have a suspected source of infection? No. Patient's initial sepsis screen is negative. Risk Assessment: Do you want to hurt yourself or someone else? Patient reports no desire to harm self or others. Onset of symptoms was August 30, 2022. 08:40 Method Of Arrival: Ambulatory iw 08:40 Acuity: RANDA 4 iw Historical: - Allergies: 08:42 No Known Allergies; iw - Home Meds: 08:42 Seroquel Oral [Active]; iw - PMHx: 08:42 Depression; RETINAL DETACHMENT; iw - Social history:: Smoking status: Patient reports the use of cigarette tobacco products. - Family history:: not pertinent. Assessment: 09:00 General: Appears in no apparent distress. uncomfortable, Behavior is calm, cooperative, kr3 appropriate for age. Pain: Denies pain. Neuro: Level of Consciousness is awake, alert, obeys commands, Oriented to person, place, time, situation. Cardiovascular: Patient's skin is warm and dry. Respiratory: Airway is patent Respiratory effort is even, unlabored, Respiratory pattern is regular, symmetrical. Vital Signs: 08:40 BP 118 / 59; Pulse 84; Resp 18; Temp 98.8; Pulse Ox 96% ; Weight 86.18 kg; Height 5 ft. iw 10 in. (177.80 cm); 09:15 BP 112 / 60; Pulse 72; Resp 18; Pulse Ox 100% on R/A; kr3 08:40 Body Mass Index 27.26 (86.18 kg, 177.80 cm) iw ED Course: 08:33 Patient arrived in ED. rg4 08:34 James Oscar MD is Attending Physician. rt 08:42 Triage completed. iw 08:42 Arm band placed on. iw 09:07 COVID-19/FLU A+B Sent. mm9 09:07 EKG done, by ED staff, reviewed by James Oscar MD COVID swab sent to lab. Flu mm9 and/or RSV swab sent to lab. 09:08 Patient has correct armband on for positive identification. Bed in low position. Call mm9 light in reach. Pulse ox on. NIBP on. 09:12 Luciana Olson RN is Primary Nurse. kr3 10:22 Chest Pa And Lat (2 Views) XRAY In Process Unspecified. EDMS Administered Medications: 09:21 Drug: DuoNeb (albuterol 2.5 mg, ipratropium 0.5 mg) (3:1) (2.5 mg - 0.5 mg) 3 ml Route: kr3 Nebulizer; 09:21 Drug: predniSONE 40 mg Route: PO; kr3 Outcome: 11:00 Discharge ordered by . rt 11:33 Patient left the ED. iw Signatures: Dispatcher [employer] EDMS Darline Holland RN RN iw Garcia, Rubi rg4 Luciana Olson RN RN kr3 Jasmine Bullock mm9 James Oscar MD MD rt Corrections: (The following items were deleted from the chart) 08:43 08:40 Pulse 84bpm; Resp 18bpm; Pulse Ox 96%; Temp 98.8F; 86.18 kg; Height 5 ft. 10 in.; iw BMI: 27.2; iw 08:43 08:40 Pulse 84bpm; Resp 18bpm; Pulse Ox 96%; Temp 98.8F; 86.18 kg; Height 5 ft. 10 in.; iw BMI: 27.2; iw 10:03 09:59 General: Appears in no apparent distress. uncomfortable, Behavior is calm, kr3 cooperative, appropriate for age, kr3 10:03 09:59 Pain: Denies pain. kr3 kr3 10:10 01:59 Neuro: Level of Consciousness is awake, alert, obeys commands, Oriented to kr3 person, place, time, situation, kr3 :10 01:59 Cardiovascular: Patient's skin is warm and dry. kr3 kr3 :10 01:59 Respiratory: Airway is patent Respiratory effort is even, unlabored, Respiratory kr3 pattern is regular, symmetrical, kr3
[2022-09-04 11:52] VITALS: TEMP 98.8
[2022-09-04 11:53] VITALS: BP 112/60; O2SAT 100
== END 2022-09-04 11:33 | disposition home or self-care (01) ==
LOC: ER 08:30
DX: J20.9 Acute bronchitis, unspecified (principal); Z20.822 Contact with and (suspected) exposure to COVID-19
CPT/HCPCS: 0240U; 71046; 93005; 94640; 99284; J7512; J7613; J7644

== ENCOUNTER → 2023-08-02 | Emergency (ER) | payer SELFPAY ==
--- NOTE | 2023-08-02 11:22 | EDPHYS ---
Physician Documentation [facility] Name: Mac Kern Age: 38 yrs Sex: Male : 1985 Arrival Date: 08/02/2023 Time: 09:53 Bed DIS3 Private MD: ED Physician Anjelica Bach HPI: 08/02 11:23 This 38 yrs old Male presents to ER via Ambulatory with complaints of Ear gb1 Pain, Congestion. 11:06 38-year-old male was diagnosed with influenza last week and now has right ear pain and gb1 is still congested. He is coughing but it is dry. No more fevers reported.. ROS: 11:07 Constitutional: Negative for fever, chills, and weight loss, Eyes: Negative for injury, gb1 pain, redness, and discharge, ENT: Patient has an erythematous canal with a mildly erythematous right tympanic membrane. Neck: Negative for injury, pain, and swelling, Cardiovascular: Negative for chest pain, palpitations, and edema, Respiratory: Negative for shortness of breath, cough, wheezing, and pleuritic chest pain, Abdomen/GI: Negative for abdominal pain, nausea, vomiting, diarrhea, and constipation, MS/Extremity: Negative for injury and deformity, Skin: Negative for injury, rash, and discoloration, 11:07 ENT: Positive for Right ear pain, gb1 11:07 All other systems are negative, 11:07 All other systems are negative, Exam: 11:07 Constitutional: This is a well developed, well nourished patient who is awake, alert, gb1 and in no acute distress. 11:07 Head/Face: Normocephalic, atraumatic. Eyes: Pupils equal round and reactive to light, gb1 extra-ocular motions intact. Lids and lashes normal. Conjunctiva and sclera are non-icteric and not injected. Cornea within normal limits. Periorbital areas with no swelling, redness, or edema. Neck: Trachea midline, no thyromegaly or masses palpated, and no cervical lymphadenopathy. Supple, full range of motion without nuchal rigidity, or vertebral point tenderness. No Meningismus. Chest/axilla: Normal chest wall appearance and motion. Nontender with no deformity. No lesions are appreciated. Cardiovascular: Regular rate and rhythm with a normal S1 and S2. No gallops, murmurs, or rubs. Normal PMI, no JVD. No pulse deficits. Respiratory: Lungs have equal breath sounds bilaterally, clear to auscultation and percussion. No rales, rhonchi or wheezes noted. No increased work of breathing, no retractions or nasal flaring. Abdomen/GI: Soft, non-tender, with normal bowel sounds. No distension or tympany. No guarding or rebound. No evidence of tenderness throughout. Back: No spinal tenderness. No costovertebral tenderness. Full range of motion. Skin: Warm, dry with normal turgor. Normal color with no rashes, no lesions, and no evidence of cellulitis. MS/ Extremity: Pulses equal, no cyanosis. Neurovascular intact. Full, normal range of motion. Neuro: Awake and alert, GCS 15, oriented to person, place, time, and situation. Cranial nerves II-XII grossly intact. Motor strength 5/5 in all extremities. Sensory grossly intact. Cerebellar exam normal. Normal gait. 11:07 ENT: Ear canal(s): no acute changes, erythema, that is minimal, of the right canal, TM's: erythema, on the right, Vital Signs: 10:30 BP 118 / 75; Pulse 87; Resp 16; Temp 98.1; Pulse Ox 97% on R/A; iw MDM: 10:13 Patient medically screened. gb1 11:07 Differential diagnosis: otitis media, acute otalgia, serotympanum. Data reviewed: vital gb1 signs, nurses notes. Administered Medications: No medications were administered Disposition Summary: 08/02/23 11:22 Discharge Ordered Notes: Location: Home gb1 Problem: new gb1 Symptoms: are unchanged gb1 Condition: Stable gb1 Diagnosis - Acute serous otitis media, right ear gb1 Followup: gb1 - With: Private Physician - When: 1 - 2 days - Reason: If symptoms return Discharge Instructions: - Discharge Summary Sheet gb1 - Otitis Media, Adult gb1 Forms: - Work release form iw - Medication Reconciliation Form gb1 - Thank You Letter gb1 - Antibiotic Education gb1 - Prescription Opioid Use gb1 - Patient Portal Instructions gb1 - Leadership Thank You Letter gb1 Prescriptions: - Augmentin 875-125 mg Oral Tablet - take 1 tablet ORAL route every 12 hours for 10 days; 20 tablet; Refills: 0, gb1 Product Selection Permitted Signatures: Anjelica Bach MD MD gb1 Corrections: (The following items were deleted from the chart) PMHx: Depression; gb1 gb1 PMHx: RETINAL DETACHMENT; gb1 gb1
--- NOTE | 2023-08-02 11:22 | ER ---
Nurse's Notes [facility] Name: Mac Kern Age: 38 yrs Sex: Male : 1985 Arrival Date: 08/02/2023 Time: 09:53 Bed DIS3 Private MD: Diagnosis: Acute serous otitis media, right ear Presentation: 08/02 10:30 Chief complaint: Patient states: flu X 1 week ago , now has right ear pain and chest iw congestion. Coronavirus screen: At this time, the client does not indicate any symptoms associated with coronavirus-19. Ebola Screen: Patient negative for fever greater than or equal to 101.5 degrees Fahrenheit, and additional compatible Ebola Virus Disease symptoms Patient denies exposure to infectious person. Patient denies travel to an Ebola-affected area in the 21 days before illness onset. No symptoms or risks identified at this time. Initial Sepsis Screen: Does the patient meet any 2 criteria? No. Patient's initial sepsis screen is negative. Does the patient have a suspected source of infection? No. Patient's initial sepsis screen is negative. Risk Assessment: Do you want to hurt yourself or someone else? Patient reports no desire to harm self or others. 10:30 Method Of Arrival: Ambulatory iw 10:30 Acuity: RANDA 4 iw Vital Signs: 10:30 BP 118 / 75; Pulse 87; Resp 16; Temp 98.1; Pulse Ox 97% on R/A; iw ED Course: 09:55 Patient arrived in ED. rg4 10:13 Anjelica Bach MD is Attending Physician. gb1 10:32 Triage completed. iw 11:34 Darline Holland RN is Primary Nurse. iw Administered Medications: No medications were administered Outcome: 11:22 Discharge ordered by . gb1 11:40 Patient left the ED. iw Signatures: Darline Holland RN RN iw Heather Aguiar rg4 Anjelica Bach MD MD gb1 Corrections: (The following items were deleted from the chart) 11:07 11:07 PMHx: Depression; gb1 gb1 11:07 11:07 PMHx: RETINAL DETACHMENT; gb1 gb1
[2023-08-02 11:52] VITALS: BP 118/75; TEMP 98.1; O2SAT 97
== END ==
LOC: ER 09:53
DX: H65.01 Acute serous otitis media, right ear (principal)
CPT/HCPCS: 99281

== ENCOUNTER 2025-05-12 08:29 | Emergency (ER) | payer OTHER, SELFPAY ==
--- NOTE | 2025-05-12 09:24 | RAD REPORT ---
EXAMINATION: ONE VIEW CHEST XR CLINICAL INDICATION: CONGESTION TECHNIQUE: Frontal chest projection is submitted. Examination is limited by patient positioning and t echnique. COMPARISON: 07/27/2023 FINDINGS: The lungs are well inflated and clear. The heart is normal in size. No displaced fractures identified . IMPRESSION: No acute intrathoracic abnormalities.
--- NOTE | 2025-05-12 09:27 | ER ---
Nurse's Notes [facility] Name: Mac Kern Age: 40 yrs Sex: Male : 1985 Arrival Date: 05/12/2025 Time: 08:29 Bed 13 Private MD: Diagnosis: Cough Presentation: 05/12 08:35 Chief complaint: Patient states: has been sick for a bout a week, cough, congestion, iw ear hurt, has been taking left over prednisone. Coronavirus screen: Client presents with at least one sign or symptom that may indicate coronavirus-19. Ebola Screen: No symptoms or risks identified at this time. Initial Sepsis Screen: Does the patient meet any 2 criteria? No. Patient's initial sepsis screen is negative. Does the patient have a suspected source of infection? No. Patient's initial sepsis screen is negative. Risk Assessment: Do you want to hurt yourself or someone else? Patient reports no desire to harm self or others. Onset of symptoms was May 05, 2025. 08:35 Method Of Arrival: Ambulatory iw 08:35 Acuity: RANDA 4 iw Historical: - Allergies: 08:36 No Known Allergies; iw - Home Meds: 08:36 Seroquel 100 mg oral tablet nightly [Active]; iw - PSHx: 08:36 right pectoral; ulcers; iw - Immunization history:: Adult Immunizations. - Infectious Disease History:: Denies. - Social history:: Smoking status: Patient reports the use of cigarette tobacco products. Screenin:19 [facility] ED Fall Risk Assessment (Adult) History of falling in the last 3 months, jb4 including since admission No falls in past 3 months (0 pts) Confusion or Disorientation No (0 pts) Intoxicated or Sedated No (0 pts) Impaired Gait No (0 pts) Mobility Assist Device Used No (0 pt) Altered Elimination No (0 pt) Score/Fall Risk Level 0 - 2 = Low Risk Oriented to surroundings, Maintained a safe environment. Abuse screen: Denies threats or abuse. Nutritional screening: No deficits noted. Tuberculosis screening: No symptoms or risk factors identified. Assessment: 09:19 General: Appears in no apparent distress. comfortable, Behavior is calm, cooperative, jb4 appropriate for age. Pain: Denies pain. Neuro: Level of Consciousness is awake, alert, obeys commands, Oriented to person, place, time, situation. Cardiovascular: Patient's skin is warm and dry. Respiratory: Reports cough that is productive, persistent Airway is patent Respiratory effort is even, unlabored, Respiratory pattern is regular, symmetrical. Derm: Skin is intact, Skin is pink, warm \T\ dry. 10:15 Reassessment: Patient appears in no apparent distress at this time. Patient and/or jb4 family updated on plan of care and expected duration. Pain level reassessed. Patient is alert, oriented x 3, equal unlabored respirations, skin warm/dry/pink. Vital Signs: 08:35 BP 124 / 87; Pulse 80; Resp 16; Pulse Ox 98% on R/A; Weight 104.33 kg; Height 5 ft. 10 iw in. ; 08:35 Body Mass Index 33.00 (104.33 kg, 177.8 cm) iw ED Course: 08:33 Patient arrived in ED. cj3 08:33 [facility]5 08:33 Adriano Haro MD is Attending Physician. dr5 08:36 Triage completed. iw 09:19 Patient has correct armband on for positive identification. Bed in low position. Call jb4 light in reach. Side rails up X 1. Provided Education on: plan of care. 09:19 No provider procedures requiring assistance completed. Patient did not have IV access jb4 during this emergency room visit. 09:20 Chest Single View XRAY In Process Unspecified. EDMS 10:15 Kieran Quiles, RN is Primary Nurse. jb4 Administered Medications: 09:18 Drug: Dexamethasone IM 10 mg IM once Route: IM; Site: left gluteus; jb4 Medication: 09:19 VIS not applicable for this client. jb4 Outcome: 09:27 Discharge ordered by . dr5 10:15 Discharged to home ambulatory, jb4 10:15 Condition: stable 10:15 Discharge instructions given to patient, Instructed on discharge instructions, follow up and referral plans. no drinking with medication, no driving heavy equipment, medication usage, Demonstrated understanding of instructions, follow-up care, medications, Prescriptions given X 3, 10:15 Patient left the ED. jb4 Signatures: Dispatcher [employer] EDAZ Darline Holland RN RN iw Kieran Quiles RN RN jb4 Santino Snowden FNP-C FNP-Cdr5 Kay Jimenez cj3 Corrections: (The following items were deleted from the chart) 08:37 08:35 BP 124 / 87; Pulse 80bpm; Resp 16bpm; Pulse Ox 98% RA; iw iw
--- NOTE | 2025-05-12 09:27 | EDPHYS ---
Physician Documentation [facility] Name: Mac Kern Age: 40 yrs Sex: Male : 1985 Arrival Date: 05/12/2025 Time: 08:29 Bed 13 Private MD: Adriano Reilly HPI: 05/12 10:02 This 40 yrs old Male presents to ER via Ambulatory with complaints of Cough, dr5 Congestion, Swollen Glands. 10:02 Onset: The symptoms/episode began/occurred acutely. Patient is a 40-year-old male with dr5 no past medical history coming in with cough, congestion, allergies that started about a week ago. Patient reports that he taken prednisone with mild relief. Patient reports that he has bronchitis annually. Patient denies fever, chest pain, shortness of breath, nausea, vomiting, diarrhea. Patient is requesting steroids and cough medication.. Historical: - Allergies: 08:36 No Known Allergies; iw - Home Meds: 08:36 Seroquel 100 mg oral tablet nightly [Active]; iw - PSHx: 08:36 right pectoral; ulcers; iw - Immunization history:: Adult Immunizations. - Infectious Disease History:: Denies. - Social history:: Smoking status: Patient reports the use of cigarette tobacco products. ROS: 10:02 Constitutional: as per hpi dr5 Exam: 10:02 Constitutional: This is a well developed, well nourished patient who is awake, alert, dr5 and in no acute distress. Head/Face: Normocephalic, atraumatic. Eyes: Pupils equal round and reactive to light, extra-ocular motions intact. Lids and lashes normal. Conjunctiva and sclera are non-icteric and not injected. Cornea within normal limits. Periorbital areas with no swelling, redness, or edema. ENT: Nares patent. No nasal discharge, no septal abnormalities noted. Tympanic membranes are normal and external auditory canals are clear. Oropharynx with no redness, swelling, or masses, exudates, or evidence of obstruction, uvula midline. Mucous membranes moist. Neck: Trachea midline, no thyromegaly or masses palpated, and no cervical lymphadenopathy. Supple, full range of motion without nuchal rigidity, or vertebral point tenderness. No Meningismus. Chest/axilla: Normal chest wall appearance and motion. Nontender with no deformity. No lesions are appreciated. Cardiovascular: Regular rate and rhythm with a normal S1 and S2. Normal PMI, no JVD. No pulse deficits. Respiratory: Lungs have equal breath sounds bilaterally, clear to auscultation. No rales, rhonchi or wheezes noted. No increased work of breathing, no retractions or nasal flaring. Back: No spinal tenderness. No costovertebral tenderness. Full range of motion. Skin: Warm, dry with normal turgor. Normal color with no rashes, no lesions, and no evidence of cellulitis. MS/ Extremity: Pulses equal, no cyanosis. Neurovascular intact. Full, normal range of motion. Neuro: Awake and alert, GCS 15, oriented to person, place, time, and situation. Cranial nerves II-XII grossly intact. Motor strength 5/5 in all extremities. Sensory grossly intact. Cerebellar exam normal. Normal gait. Vital Signs: 08:35 BP 124 / 87; Pulse 80; Resp 16; Pulse Ox 98% on R/A; Weight 104.33 kg; Height 5 ft. 10 iw in. ; 08:35 Body Mass Index 33.00 (104.33 kg, 177.8 cm) iw MDM: 08:34 Medical Screening Exam initiated dr5 10:02 Differential Diagnosis: Bronchitis Upper Respiratory Infection Viral Syndrome dr5 Pneumonia. Data reviewed: vital signs, nurses notes, radiologic studies, plain films. Consideration of Admission/Observation Escalation of care including admission/observation considered. Escalation considered patient found to be febrile with pneumonia on chest x-ray. I considered the following discharge prescriptions or medication management in the emergency department I discussed and recommended Over The Counter medications, Medications were administered in the Emergency Department. See MAR. Independent interpretation of the following test(s) in the Emergency Department X-Ray: My interpretation is Independent interpretation of chest x-ray does not reveal infiltrates concerning for pneumonia. Care significantly affected by the following Social Determinants of Health: Poor access to healthcare and/or lack of insurance, Poor access to transportation, Problems related to employment. Counseling: I had a detailed discussion with the patient and/or guardian regarding the historical points, exam findings, and any diagnostic results supporting the discharge/admit diagnosis, the presence of at least one elevated blood pressure reading (>120/80) during this emergency department visit, radiology results, the need for outpatient follow up, for definitive care, a family practitioner, to return to the emergency department if symptoms worsen or persist or if there are any questions or concerns that arise at home. Medication response: Dexamethasone. Response to treatment: the patient's symptoms have mildly improved after treatment. Special discussion: I discussed with the patient/guardian in detail that at this point there is no indication for admission to the hospital. It is understood, however, that if the symptoms persist or worsen the patient needs to return immediately for re-evaluation. Based on the history and exam findings, there is no indication for further emergent testing or inpatient evaluation. I discussed with the patient/guardian the need to see the primary care provider for further evaluation of the symptoms. ED course: Dexamethasone injection given in ER. Azithromycin, Bromfed, and steroid Dosepak given for patient's cough and condition. Recommended follow-up with primary care doctor. All question answered. Strict ER precautions given.. 05/12 08:36 Order name: Chest Single View XRAY; Complete Time: 09:27 dr5 Administered Medications: :18 Drug: Dexamethasone IM 10 mg IM once Route: IM; Site: left gluteus; jb4 Disposition: 10:26 Co-signature as Attending Physician, Adriano Haro MD I agree with the assessment and allegra plan of care. Disposition Summary: 05/12/25 09:27 Discharge Ordered Notes: Location: Home dr5 Condition: Stable dr5 Diagnosis - Cough dr5 Followup: dr5 - With: Emergency Department - When: As needed - Reason: Worsening of condition Followup: dr5 - With: Private Physician - When: 1 - 2 days - Reason: Recheck today's complaints, Continuance of care, Re-evaluation by your physician Discharge Instructions: - Discharge Summary Sheet dr5 - Upper Respiratory Infection, Adult dr5 - Cough, Adult, [id number] dr5 Forms: - Medication Reconciliation Form dr5 - Antibiotic Education dr5 - Patient Portal Instructions dr5 - Leadership Thank You Letter dr5 Prescriptions: - Bromfed DM 2-30-10 mg/5 mL Oral syrup - administer 10 milliliter ORAL route every 12 hours as needed for allergy dr5 symptoms; 240 milliliter; Refills: 0, Product Selection Permitted - Zithromax Z-Jomar 250 mg Oral Tablet - take 1 tablet ORAL route as directed for 5 days Day 1 - take two (2) tablets dr5 one time. Day 2, 3, 4 , 5 take one (1) tablet once daily.; 6 tablet; Refills: 0, Product Selection Permitted - Prednisone 20 mg Oral Tablet - take 2 tablets ORAL route once daily for 5 days; 10 tablet; Refills: 0, Product dr5 Selection Permitted Signatures: Dispatcher [employer] Adriano Sharma MD MD cha Williams, Irene, RN RN iw Bryson, James, RN RN jb4 Santino Snowden, METAL SPRAYER-C METAL SPRAYER-Cdr5
[2025-05-12 15:55] VITALS: BP 124/87; O2SAT 98
== END 2025-05-12 10:15 | disposition home or self-care (01) ==
LOC: ER 08:29
DX: R05.9 Cough, unspecified (principal); Z72.0 Tobacco use
CPT/HCPCS: 71045; 96372; 99284; J1100